=== PATIENT | male | born 1970 | race Caucasian/White ===

== ENCOUNTER → 2018-03-21 09:18 | Outpatient (CLI) | payer MEDICARE, SELFPAY ==
[2018-03-21 10:48] LABS: ALB/GLOB Ratio 0.9 RATIO (0.9-2.4); AST(SGOT) 11 U/L (15-37); Alanine Aminotransfer ALT/SGPT 13 U/L (16-61); Albumin, Serum 3.4 g/dL (3.2-5.0); Alkaline Phosphatase 45 U/L (45-117); Anion Gap 4 (5-15); BUN 37 mg/dL (7-18); BUN/Creat Ratio 17.9 RATIO (10-20); Calcium,Total 9.3 mg/dL (8.5-10.1); Chloride 108 mmol/L (98-107); Cholesterol 123 mg/dL (200); Creatinine, Serum 2.07 mg/dL (0.70-1.30); EST Glomerular Filtration Rate 37 mL/min (>60); Est Glom Filt Rate - Afr Amer 44 mL/min (>60); Globulin 3.9 g/dL (2.2-4.2); Glucose 147 mg/dL (74-106); High Density Lipoprotein 25 mg/dL; Potassium 4.8 mmol/L (3.5-5.1); Protein, Total 7.3 g/dL (6.4-8.2); Sodium Level 140 mmol/L (136-145); Triglycerides 185 mg/dL; Very Low Density Lipoprotein 37 mg/dL (5-40)
[2018-03-21 10:49] LABS: Microalbumin:Creatinine Ratio 493.9 mg/g CRE (<30 mg/g CRE)
[2018-03-21 11:10] LABS: Hemoglobin A1c 8.2 % (4.2-6.3)
== END ==
PROVIDERS: Family Provider Internal Medicine; PCP Internal Medicine; Visit Provider Internal Medicine
DX: E11.9 Type 2 diabetes mellitus without complications (principal); E78.5 Hyperlipidemia, unspecified; I25.2 Old myocardial infarction
CPT/HCPCS: 36415; 80053; 80061; 82043; 82570; 83036

== ENCOUNTER 2018-05-28 03:37 | Emergency (ER) | payer MEDICARE, SELFPAY ==
[2018-05-28 03:37] VITALS: BP 192/71; PULSE 63; RESP 16; TEMP 36.5; O2SAT 97; BMI 40.6
--- NOTE | 2018-05-28 03:54 | EKG12_ITS ---
Test Reason : CP Blood Pressure : / mmHG Vent. Rate : 061 BPM Atrial Rate : 061 BPM P-R Int : 150 ms QRS Dur : 096 ms QT Int : 430 ms P-R-T Axes : 003 072 068 degrees QTc Int : 432 ms Normal sinus rhythm Inferior infarct , age undetermined Anterolateral infarct , age undetermined Abnormal ECG Confirmed by HENOK MARINA ([id number]), supervising film or videotape editor ROGER NICHOLE ([id number]) on 05/31/2018 1:32:17 PM Referred By: DEE Confirmed By:HENOK MARINA
--- NOTE | 2018-05-28 04:06 | ED.RN ---
Faina, RN advised that pt requested to speak to RN in charge d/t pt complaining about care he was receiving. Upon entering room, pt asks you're the one in charge? Really?. Pt c/o about care he received, that he was upset that he had to walk into the ER and was not given a wheelchair in. Apologized to pt for not getting a wheelchair. Pt was complaining about IV attempts and rudeness of staff. Pt began to yell at this RN, I pay your salary, I pay your wages, I pay your house payment, you will take care of me and give me the respect I deserve. You aren't going to listen to me anyway because all you people stick together. The blood and plasma laboratory assistant, the nurses the firemen, and you aren't going to fucking listen to me and you aren't going to do anything. Advised pt that I was in the room to try to find a resolution for his dissatisfaction with his care, and to find out what happened, but I would not tolerate him swearing at me or any staff. Pt at this point was standing and had ripped monitors, BP cuff, and SPO2 sensor off. Pt yelled I have PTSD and you are about to set it off and you don't want to see it set off if you don't take back what you said about me being disrespectful. I'm calling all of your supervisors and I will make sure they all know that you denied me care. Advised pt that we were not denying care, that the DR had seen him and entered orders, and we were trying to provide care. Pt took this RN's and Faina's names and advised that he would make management aware. This RN had repeatedly tried to apologize to pt and attempt to find a resolution. Pt continuously kept becoming more and more threatening to staff. Pt left department on his own, ambulating without difficulty. Pt returned to ER to get his hat. Pt was not allowed to enter department. Security escorted this RN to main ER doors to return hat. Pt was not permitted to return to ER to get his hat d/t threatening nature of pt during visit.
--- NOTE | 2018-05-28 04:07 | NURSING ---
PT VERY LOUD AND SHORT WITH THIS NURSE I TRY TO GET THE HISTORY . I PUT THE IV IN RH . BLOOD RUNNING WELL. 2ND TUBE APPLIED. PT DEMANDED THIS NURSE TO TAKE IV OUT NOW. PT SAID,I WANT THAT IV OUT NOW. IT HURTS. INSTRUCTED PT THAT I WILL STICK HIM AGAIN BUT IF I CANT GET THEN WE WILL HAVE TO GIVE DILAUDID IM. PT WAS STUCK 2 TIMES BY ANAYELI. PT STATED , YOU ARE RUDE AND I WANT YOU OUT OF MY ROOM NOW. PT DEMANDED TO SPEECH TO MY CHARGE NURSE. ANAYELI NOTIFIED.
--- NOTE | 2018-05-28 04:12 | ED.DCSUM_ITS ---
- ER Visit Summary Date of Service: 05/28/18 Chief Complaint: [] Chest and abdominal burning History of Present Illness: The patient is a 48 M history of chest and abdominal burning for last 3 days gradual onset continuous burning sensation central chest and epigastric. He has a history of significant gastritis. He has been seen in the emergency department for this in the past. He is on Carafate and Protonix. He does have history of coronary artery disease and has 2 stents. He is on aspirin and Plavix. He took his aspirin today. Physical Examination: [] Vital signs reviewed General: Well-nourished well-developed Head: Normocephalic atraumatic Eyes: Pupils equal round and reactive to light extraocular movements intact ENT: TMs clear no hemotympanum no trauma Neck: Nontender full range of motion Cardiovascular: Regular rate rhythm no murmurs normal S1-S2 Respiratory: No distress clear to auscultation bilaterally chest nontender Abdomen: Soft nontender nondistended normal bowel sounds no masses Back: Nontender no CVA tenderness Extremities: Nontender active range of motion ?4 extremities no trauma Skin: Normal color no trauma Neuro alert oriented cranial nerves II through XII intact normal strength sensation reflexes Test Results: [] Emergency Department Course and Treatment: [] EKG obtained shows sinus rhythm at a rate of 61 without STEMI. Lab work was ordered as well as a chest x-ray. Dilaudid was ordered. The patient declined any Protonix or GI cocktail. Soon after these were ordered the patient eloped from the emergency department. We did not get lab work or chest x-ray. Most of the time he was here he was arguing arguing at the nursing staff and then decided to leave. Treatment Plan: [] Disposition: [] Impression: [] Chest pain Abdominal pain This note was generated with [employer] dictation software. It may contain incorrect words, spelling, and punctuation that were not noted in review of the chart prior to signing ED Disposition - Plan for ED Patient: Chief Complaint: Chest Pain Referrals: Mariaa Molina MD [Primary Care Provider] -
== END 2018-05-28 04:15 | disposition left against medical advice (07) ==
PROVIDERS: Emergency Provider Emergency Medicine; Family Provider Internal Medicine; PCP Internal Medicine
DX: R07.9 Chest pain, unspecified (principal); R10.13 Epigastric pain; K29.70 Gastritis, unspecified, without bleeding; I25.10 Atherosclerotic heart disease of native coronary artery without angina pectoris; I12.9 Hypertensive chronic kidney disease with stage 1 through stage 4 chronic kidney disease, or unspecified chronic kidney disease; N18.9 Chronic kidney disease, unspecified; E11.9 Type 2 diabetes mellitus without complications; E78.00 Pure hypercholesterolemia, unspecified; E66.9 Obesity, unspecified; Z68.41 Body mass index [BMI] 40.0-44.9, adult; Z95.5 Presence of coronary angioplasty implant and graft; Z79.82 Long term (current) use of aspirin; Z79.4 Long term (current) use of insulin; Z79.01 Long term (current) use of anticoagulants; Z79.899 Other long term (current) drug therapy; Z72.0 Tobacco use; Z53.21 Procedure and treatment not carried out due to patient leaving prior to being seen by health care provider
CPT/HCPCS: 93005; 99285; A4216

== ENCOUNTER 2018-05-28 08:44 | Emergency (ER) | payer MEDICARE, SELFPAY ==
[2018-05-28 08:45] VITALS: BP 172/81; PULSE 63; RESP 16; TEMP 36.3; O2SAT 98; BMI 42.2
--- NOTE | 2018-05-28 09:05 | EKG12_ITS ---
Test Reason : ABD Blood Pressure : / mmHG Vent. Rate : 059 BPM Atrial Rate : 059 BPM P-R Int : 162 ms QRS Dur : 096 ms QT Int : 452 ms P-R-T Axes : -01 034 041 degrees QTc Int : 447 ms Sinus bradycardia Inferior infarct , age undetermined Anterolateral infarct , age undetermined Abnormal ECG Confirmed by DANITZA COHEN, MARYAN ([id number]), editorial cartoonist ROGER NICHOLE ([id number]) on 05/31/2018 1:18:16 PM Referred By: GERMAINE Confirmed By:MARYAN BOSCH MD
--- NOTE | 2018-05-28 09:09 | ED.DCSUM_ITS ---
- ER Visit Summary Date of Service: 05/28/18 Chief Complaint: Abdominal pain History of Present Illness: The patient is a 48 M reports a history of severe gastritis and states his pain has been flaring up for the past 3 days. He does report some chills and some mild dysuria which is not normal. He complains of nausea. Past history is also significant for coronary disease with multiple MIs, diabetes, hypertension, high cholesterol, chronic kidney disease. He has had prior cholecystectomy and has 2 cardiac stents. Physical Examination: Vital signs significant for blood pressure 172/81, otherwise normal. Patient sitting upright in bed. He is in no acute distress. Heart is regular rate and rhythm. Lung sounds are clear. Abdomen is soft with moderate tenderness of the upper abdomen. No guarding or rebound. Hypoactive bowel sounds are noted throughout. Test Results: EKG is sinus bradycardia 59 bpm with no sign of acute ischemia. CBC reveals a white count 12.3 with normal differential. Chemistry studies reveal glucose of 188, BUN 27, creatinine 1.97. This appears consistent with his prior renal function. LFTs and lipase are normal. Urinalysis shows no sign of infection. Troponin is 0.019. Chest x-ray shows chronic changes with no evidence of free air. Emergency Department Course and Treatment: Patient is given Dilaudid, Zofran, Protonix, and IV fluids. Repeat evaluation he feels much improved. He has Carafate and Protonix at home. I did do an oars report he has had no prescriptions in the past 2 years. He will be given a prescription for Zofran along with a few Percocet. Treatment Plan: [] Disposition: Discharge Impression: Gastritis This note was generated with [employer] dictation software. It may contain incorrect words, spelling, and punctuation that were not noted in review of the chart prior to signing ED Disposition - Plan for ED Patient: Chief Complaint: Abd Pain Referrals: Mariaa Molina MD [Primary Care Provider] -
[2018-05-28] MEDS: HYDROmorphone 1 MG/ML Syringe IV (09:22)
[2018-05-28] MEDS: Ondansetron 4 MG/2 ML Vial IV (09:22)
[2018-05-28] MEDS: 0.9% Normal Saline 1,000 ML 1000 ML IV (09:22)
[2018-05-28 09:32] LABS: Absolute Lymphocyte Count 4.13 X10^3/ul (0.83-4.51); Absolute Neutrophil Count 7.1 X10^3/uL (2.0-7.7); Basophil# 0.01 X10^3/uL; Basophil% 0.1 % (0-1); Eosinophil# 0.02 X10^3/uL; Eosinophils% 0.2 % (0-5); Hematocrit 45.1 % (40-54); Hemoglobin 15.4 g/dl (13.0-16.5); Lymphocyte # 4.13 X10^3/ul (4.0); Lymphocyte % 33.7 % (19-41); Mean Corp Hgb Conc 34.1 g/gl (32-36); Mean Corpuscular Hgb 28.6 pg (27.0-32.0); Mean Corpuscular Volume 83.8 fL (80-94); Mean Platelet Vol. 10.3 fl (6.2-12.0); Monocyte# 1.03 X10^3/uL; Monocyte% 8.4 % (0-10); Neutrophil # 7.06 X10^3/uL (2.7-7.7); Neutrophil % 57.4 % (47-70); Platelet Count 248 K/mm3 (150-450); RBC Distribution Width CV 15.7 % (11.6-14.6); RBC Distribution Width SD 47.9 fl (35.1-43.9); Red Blood Count 5.38 M/mm3 (4.6-6.2); White Blood Count 12.3 K/mm3 (4.4-11.0)
[2018-05-28 09:34] LABS: POSITIVE COUNT NO; POSITIVE DIFFERENTIAL NO; POSITIVE MORPHOLOGY NO
[2018-05-28 09:46] LABS: AST(SGOT) 16 U/L (15-37); Alanine Aminotransfer ALT/SGPT 19 U/L (16-61); Albumin, Serum 3.5 g/dL (3.2-5.0); Alkaline Phosphatase 46 U/L (45-117); Anion Gap 8 (5-15); BUN 27 mg/dL (7-18); BUN/Creat Ratio 13.7 RATIO (10-20); Bilirubin, Direct 0.25 mg/dL (0.00-0.30); Calcium,Total 9.9 mg/dL (8.5-10.1); Chloride 102 mmol/L (98-107); Creatinine, Serum 1.97 mg/dL (0.70-1.30); EST Glomerular Filtration Rate 39 mL/min (>60); Est Glom Filt Rate - Afr Amer 47 mL/min (>60); Estimated Creatinine Clearance 51.26 ml/min; Globulin 4.3 g/dL (2.2-4.2); Glucose 188 mg/dL (74-106); Lipase 155 U/L (73-393); Potassium 3.9 mmol/L (3.5-5.1); Protein, Total 7.8 g/dL (6.4-8.2); Sodium Level 134 mmol/L (136-145)
[2018-05-28 09:51] LABS: Mucous, Urine 0 SEEN /hpf (<or=2+); Red Blood Cells-Urine 0 SEEN /hpf (0-5); Squamous Epithelial Cells - UA 0 SEEN /hpf (0-5)
--- NOTE | 2018-05-28 10:06 | RAD_ITS ---
STUDY: X-RAY CHEST REASON FOR EXAM: Male, 48 years old. Shortness of breath TECHNIQUE: Single AP portable view of the chest. COMPARISON: 08/12/2017. FINDINGS: The lungs are clear and expanded. There is no demonstrated pleural abnormality. Normal size heart. Normal mediastinum and jesica. Normal visualized pulmonary arteries. Normal visualized aortic arch and descending thoracic aorta. Normal visualized thoracic spine. Normal visualized ribs, clavicles, and shoulders. There is no demonstrated abnormality of the visualized soft tissue structures of the upper abdomen. RAD/Chest 1 View (Portable) IMPRESSION: No acute cardiopulmonary disease. Electronically Signed: Du Da Silva DO at 10:38 EDT , Service support ,
[2018-05-28 10:09] LABS: Color, Urine Yellow (Yellow); Glucose, Dipstick 50 mg/dl (Normal); Ketone-Dipstick 5 mg/dl (Negative); Leukocyte Esterase-Dipstick 25 /ul (Negative); Nitrite-Dipstick Negative (Negative); Occult Blood-Urine 25 /ul (Negative); Protein-Dipstick 500 mg/dl (Negative); Specific Gravity, Urine 1.015 (1.002-1.030); Urine Bilirubin Dipstick Negative (Negative); Urine Clarity Sl. Cloudy (Clear); Urine Urobilinogen 4 mg/dl (Normal)
[2018-05-28 10:17] LABS: Bacteria RARE /hpf (None Seen); White Blood Cells 0-5 SEEN /hpf (0-5)
[2018-05-28] MEDS: HYDROmorphone 0.5 MG/0.5 ML SYRINGE IV (10:22)
--- NOTE | 2018-05-28 10:56 | ED.DEP ---
ED Disposition - Plan for ED Patient: Disposition: Home or Assisted Living Chief Complaint: Abd Pain Instructions: ED Gastritis Prescriptions: Oxycodone HCl/Acetaminophen [Percocet 5/325] 1 tablet PO Q6H PRN PRN 3 Days #12 tablet PRN Reason: Pain Ondansetron [Zofran Odt] 4 mg PO Q8H PRN PRN #10 tab PRN Reason: Nausea Referrals: Mariaa Molina MD [Primary Care Provider] - 1 Week
== END 2018-05-28 11:15 | disposition home or self-care (01) ==
PROVIDERS: Emergency Provider Emergency Medicine; Family Provider Internal Medicine; PCP Internal Medicine
DX: K29.70 Gastritis, unspecified, without bleeding (principal); K21.9 Gastro-esophageal reflux disease without esophagitis; I25.10 Atherosclerotic heart disease of native coronary artery without angina pectoris; I25.2 Old myocardial infarction; I12.9 Hypertensive chronic kidney disease with stage 1 through stage 4 chronic kidney disease, or unspecified chronic kidney disease; N18.9 Chronic kidney disease, unspecified; E78.00 Pure hypercholesterolemia, unspecified; J44.9 Chronic obstructive pulmonary disease, unspecified; F32.9 Major depressive disorder, single episode, unspecified; E66.9 Obesity, unspecified; Z68.41 Body mass index [BMI] 40.0-44.9, adult; Z90.49 Acquired absence of other specified parts of digestive tract; Z95.5 Presence of coronary angioplasty implant and graft; Z79.82 Long term (current) use of aspirin; Z79.01 Long term (current) use of anticoagulants; Z79.4 Long term (current) use of insulin; Z79.899 Other long term (current) drug therapy; Z72.0 Tobacco use
CPT/HCPCS: 71045; 80048; 80076; 81001; 83690; 84484; 85025; 93005; 96365; 96375; 96376; 99284; 99285; J7030; A4216; J2405

== ENCOUNTER 2018-07-06 12:26 | Day surgery (SDC) | payer MEDICARE, SELFPAY ==
--- NOTE | 2018-07-06 | GASB_PTH ---
PATIENT: DIVINA LOVE LOC: EN U#:[id number] AGE/SX: 48/M ROOM: RE07/06/[address]: Dr. Dmitry Rangel MD : 1970 BED: DIS: 07/06/2018 SPEC #: [id number] RECD: 07/07/18 09:14 STATUS: XAVIER MICHELE #: [id number] ROSSY: 07/06/18 00:[address]: Dmitry Rangel DEPT: SURGICAL PATHOLOGY RECD BY: Ronald Gregory ENTERED: 07/07/18 09:14 SP TYPE: Gastric Bx OTHR DR: Dr. Mariaa Molina MD Tissues: Gastric mucous membrane Procedures: Surgery Specimen Level IV HEADER OPERATION: EGD ([facility]) PRE-OP DIAGNOSIS: Epigastric abdominal pain, nausea and vomiting TISSUE SUBMITTED: Antrum biopsy for H. pylori and pathology MICROSCOPIC DIAGNOSIS Gastric antrum, biopsy: Mild chronic inflammation. AM:artur 07/08/18 COMMENT The results of immunohistochemistry for Helicobacter pylori will be reported separately ([id number]). MICROSCOPIC DESCRIPTION Slides are reviewed. GROSS DESCRIPTION Received in fixative is one container labeled with the patient's name and designated antral biopsy. The specimen consists of one irregular fragment of light craig soft tissue that measures 0.5 x 0.5 x 0.1 cm. The specimen is totally submitted in one cassette. / AM:artur 07/07/18 TC:3 CPT: 56326
[2018-07-06 12:56] VITALS: BP 125/73; PULSE 56; RESP 16; TEMP 36.5; O2SAT 93; BMI 40.4
--- NOTE | 2018-07-06 13:40 | PCM.OPRPT ---
Problem List (1) Epigastric pain Status: Acute (2) Nausea with vomiting, unspecified Status: Acute Qualifiers: Vomiting type: unspecified Vomiting Intractability: unspecified Qualified Code(s): R11.2 - Nausea with vomiting, unspecified Report of Operation Date of Procedure: 07/06/18 Pre-Operative Diagnosis: Epigastric abdominal pain. Nausea and vomiting Post-Operative Diagnosis: Same Surgery/Procedure Performed:: Esophagogastroduodenoscopy with biopsy Type of Anesthesia:: MAC Description of Procedure: Patient was brought into the endoscopy suite. Back of his throat was sprayed with Cetacaine spray. Bite-block was placed. He was placed on the left lateral decubitus position. He was given graded anesthesia. The scope was inserted into the back of the oropharynx and directed down through the esophagus into the stomach and into the duodenum without difficulty. Operative findings: 1. Duodenum: Normal appearance no mass lesions no ulcerations normal ileocecal valve. 2. Stomach: Minimal gastritis was identified H. pylori was obtained in the antrum and sent to pathology for permanent sectioning. No ulcerations no mass lesions retroflexion did not show any signs of obvious hiatal hernia. 3. Esophagus: Normal appearance no mass lesions no esophagitis Z line was at 44 cm and appeared entirely normal. The pain the patient is experiencing is clearly out of proportion to what I have found in his upper scope. He will need to have an esophageal manometry study performed. Can follow-up with me after this is completed. - Admit VTE Documentation VTE Present on Admission: No VTE Mechan Device Prophylaxis: None VTE Pharm Prophylaxis ordered?: No Reason prophylaxis not ordered:: Treatment Not Indicated
[2018-07-06 13:41] LABS: Bedside Glucose 159 mg/dL (70-110)
[2018-07-06 13:45] VITALS: BP 125/73; BP 130/55; PULSE 59; RESP 16; TEMP 36.3; O2SAT 93
[2018-07-06 13:50] VITALS: BP 125/73; BP 130/63; PULSE 57; RESP 16; O2SAT 94
[2018-07-06 13:55] VITALS: BP 125/73; BP 138/69; PULSE 56; RESP 16; O2SAT 93
--- NOTE | 2018-07-06 14:00 | IMM_PTH ---
PATIENT: DIVINA LOVE LOC: EN U#:[id number] AGE/SX: 48/M ROOM: RE07/06/[address]: Dr. Dmitry Rangel MD : 1970 BED: DIS: 07/06/2018 SPEC #: [id number] RECD: 07/07/18 10:07 STATUS: XAVIER REEdelmira #: [id number] ROSSY: 07/06/18 14:[address]: Dmitry Rangel DEPT: IMMUNOHISTOCHEMISTRY RECD BY: Toma Hatch ENTERED: 07/07/18 10:08 SP TYPE: IMMUNO OTHR DR: Dr. Mariaa Molina MD Tissues: Stomach, NOS Procedures: H Pylori (initial) PHYSICIAN & INSTITUTION [place] [id number] SPECIMEN INFORMATION: Tissue Source: Antrum biopsy Clinical Info: Epigastric pain, nausea and vomiting Specimen Number: [id number] CPT code: 08165 METHODOLOGY: Deparaffinized sections of prefer/formalin-fixed tissue or PAP/DQ stained slides are incubated with monoclonal/polyclonal antibodies/oligonucleotide probes. Localization is made via biotin free immunoperoxidase method. Appropriate controls are performed and reacted as expected. Results on target cell population are indicated in the following table: RESULTS: ANTIBODY / CLONE RESULT H Pylori (polyclonal) negative These tests were developed and their performance characteristics determined by [facility]. They may not have been cleared or approved by the U.S. Food and Drug Administration. The FDA has determined that such clearance or approval is not necessary. INTERPRETATION: Antrum, biopsy: Negative for Helicobacter pylori organisms. AM:artur 07/08/18
[2018-07-06 14:05] VITALS: BP 120/58; BP 125/73; PULSE 57; RESP 16; TEMP 36.4; O2SAT 94
[2018-07-06 14:29] VITALS: BP 125/73
== END 2018-07-06 14:35 | disposition home or self-care (01) ==
LOC: EN 12:27 → AC 12:29
PROVIDERS: Family Provider Internal Medicine; PCP Internal Medicine; Visit Provider Surgery
PROC: 0DJ08ZZ Inspection of Upper Intestinal Tract, Via Natural or Artificial Opening Endoscopic (ICD-10-PCS; CPT 43235; principal; 2018-07-06 13:55)
DX: K29.50 Unspecified chronic gastritis without bleeding (principal); K21.9 Gastro-esophageal reflux disease without esophagitis; R10.13 Epigastric pain; R11.2 Nausea with vomiting, unspecified; I12.9 Hypertensive chronic kidney disease with stage 1 through stage 4 chronic kidney disease, or unspecified chronic kidney disease; N18.2 Chronic kidney disease, stage 2 (mild); E11.22 Type 2 diabetes mellitus with diabetic chronic kidney disease; E11.610 Type 2 diabetes mellitus with diabetic neuropathic arthropathy; I25.10 Atherosclerotic heart disease of native coronary artery without angina pectoris; I25.2 Old myocardial infarction; E78.00 Pure hypercholesterolemia, unspecified; F32.9 Major depressive disorder, single episode, unspecified; F41.9 Anxiety disorder, unspecified; F43.10 Post-traumatic stress disorder, unspecified; G25.81 Restless legs syndrome; E78.5 Hyperlipidemia, unspecified; E66.01 Morbid (severe) obesity due to excess calories; Z68.41 Body mass index [BMI] 40.0-44.9, adult; G47.33 Obstructive sleep apnea (adult) (pediatric); E55.9 Vitamin D deficiency, unspecified; Z95.2 Presence of prosthetic heart valve; F17.290 Nicotine dependence, other tobacco product, uncomplicated; F12.90 Cannabis use, unspecified, uncomplicated; Z79.4 Long term (current) use of insulin; Z79.82 Long term (current) use of aspirin; Z79.01 Long term (current) use of anticoagulants; Z79.899 Other long term (current) drug therapy
CPT/HCPCS: 43239; 82962; 88305; 88342; J7120

== ENCOUNTER → 2018-08-23 13:38 | Outpatient (CLI) | payer MEDICARE, SELFPAY ==
[2018-08-23 14:42] LABS: Anion Gap 5 (5-15); BUN 23 mg/dL (7-18); BUN/Creat Ratio 12.8 RATIO (10-20); Calcium,Total 9.3 mg/dL (8.5-10.1); Chloride 106 mmol/L (98-107); Creatinine, Serum 1.79 mg/dL (0.70-1.30); EST Glomerular Filtration Rate 43 mL/min (>60); Est Glom Filt Rate - Afr Amer 52 mL/min (>60); Glucose 117 mg/dL (74-106); Potassium 4.3 mmol/L (3.5-5.1); Sodium Level 141 mmol/L (136-145)
[2018-08-23 14:53] LABS: Hemoglobin A1c 7.6 % (4.2-6.3)
[2018-08-23 15:32] LABS: Microalbumin:Creatinine Ratio 903.2 mg/g CRE (<30 mg/g CRE)
== END ==
PROVIDERS: Family Provider Internal Medicine; PCP Internal Medicine; Referring Provider Internal Medicine; Visit Provider Internal Medicine
DX: E11.610 Type 2 diabetes mellitus with diabetic neuropathic arthropathy (principal); E11.22 Type 2 diabetes mellitus with diabetic chronic kidney disease; N18.3 Chronic kidney disease, stage 3 (moderate)
CPT/HCPCS: 36415; 80048; 82043; 82570; 83036

== ENCOUNTER 2018-09-15 07:47 | Day surgery (SDC) | payer MEDICARE, SELFPAY ==
[2018-09-15 08:48] VITALS: BP 174/73; PULSE 56; RESP 16; TEMP 36.3; O2SAT 95
== END 2018-09-15 08:41 | disposition home or self-care (01) ==
PROVIDERS: Family Provider Internal Medicine; PCP Internal Medicine; Visit Provider Surgery
PROC: F00ZJWZ Instrumental Swallowing and Oral Function Assessment using Swallowing Equipment (ICD-10-PCS; CPT 43235; principal; 2018-09-15 07:55)
DX: R13.10 Dysphagia, unspecified (principal)
CPT/HCPCS: 91010

== ENCOUNTER → 2018-11-29 10:57 | Outpatient (CLI) | payer MEDICARE, SELFPAY ==
[2018-11-22 11:06] VITALS: BMI 41.6
[2018-11-29 11:55] LABS: Absolute Lymphocyte Count 2.74 X10^3/ul (0.83-4.51); Absolute Neutrophil Count 5.3 X10^3/uL (2.0-7.7); Basophil# 0.03 X10^3/uL; Basophil% 0.3 % (0-1); Eosinophil# 0.18 X10^3/uL; Hematocrit 39.6 % (40-54); Lymphocyte # 2.74 X10^3/ul (4.0); Lymphocyte % 30.2 % (19-41); Mean Corp Hgb Conc 32.8 g/gl (32-36); Mean Corpuscular Hgb 27.4 pg (27.0-32.0); Mean Corpuscular Volume 83.5 fL (80-94); Mean Platelet Vol. 10.9 fl (6.2-12.0); Monocyte# 0.75 X10^3/uL; Monocyte% 8.3 % (0-10); Neutrophil # 5.33 X10^3/uL (2.7-7.7); Neutrophil % 58.9 % (47-70); Platelet Count 208 K/mm3 (150-450); RBC Distribution Width CV 14.7 % (11.6-14.6); RBC Distribution Width SD 44.1 fl (35.1-43.9); Red Blood Count 4.74 M/mm3 (4.6-6.2); White Blood Count 9.1 K/mm3 (4.4-11.0)
[2018-11-29 11:58] LABS: POSITIVE COUNT NO; POSITIVE DIFFERENTIAL NO; POSITIVE MORPHOLOGY NO
[2018-11-29 12:32] LABS: ALB/GLOB Ratio 0.9 RATIO (0.9-2.4); AST(SGOT) 22 U/L (15-37); Alanine Aminotransfer ALT/SGPT 23 U/L (16-61); Albumin, Serum 3.2 g/dL (3.2-5.0); Alkaline Phosphatase 43 U/L (45-117); Anion Gap 6 (5-15); BUN 55 mg/dL (7-18); BUN/Creat Ratio 24.7 RATIO (10-20); Calcium,Total 9.5 mg/dL (8.5-10.1); Chloride 102 mmol/L (98-107); Cholesterol 131 mg/dL (200); Creatinine, Serum 2.23 mg/dL (0.70-1.30); EST Glomerular Filtration Rate 33 mL/min (>60); Est Glom Filt Rate - Afr Amer 40 mL/min (>60); Globulin 3.7 g/dL (2.2-4.2); Glucose 286 mg/dL (74-106); High Density Lipoprotein 28 mg/dL; Potassium 4.7 mmol/L (3.5-5.1); Protein, Total 6.9 g/dL (6.4-8.2); Sodium Level 138 mmol/L (136-145); Triglycerides 271 mg/dL; Very Low Density Lipoprotein 54 mg/dL (5-40)
[2018-11-29 12:40] LABS: Microalbumin:Creatinine Ratio 919.8 mg/g CRE (<30 mg/g CRE)
--- OUTSIDE RECORDS SUMMARY | 2019-01-31 14:52 | XMS RPT_ITS ---
:1970 Author Organization OHIP Support Name Relationship Address Phone D Unavailable Unavailable Unavailable IAVN ERIBERTO Unavailable Unavailable + VITA JEREMIAS Unavailable [address] + [address] [place] [address] D Unavailable Unavailable Unavailable IVAN, ERIBERTO Unavailable . + ., [place] . VITA JEREMIAS Unavailable [address] [place] [address] D Unavailable Unavailable Unavailable IVAN, ERIBERTO Unavailable . + ., [place] . VITA JEREMIAS Unavailable [address] [place] [address] D Unavailable Unavailable Unavailable VITA JEREMIAS Unavailable [address] + [address] [place] [address] D Unavailable Unavailable Unavailable IVAN, ERIBERTO Unavailable Unavailable + VITA JEREMIAS Unavailable [address] [place] [address] D Unavailable Unavailable Unavailable IVAN, ERIBERTO Unavailable Unavailable + VITA JEREMIAS Unavailable [address] + [address] [place] [address] D Unavailable Unavailable Unavailable IVAN, ERIBERTO Unavailable Unavailable + VITA JEREMIAS Unavailable [address] + [address] [place] [address] D Unavailable Unavailable Unavailable IVAN, ERIBERTO Unavailable . + ., [place] . VITA, JEREMIAS Unavailable [address] [place] [address] D Unavailable Unavailable Unavailable TEDDY LOVEA Unavailable Unavailable + VITA, JEREMIAS Unavailable [address] [place] [address] D Unavailable Unavailable Unavailable CHHAYA LoveYLA Unavailable Unavailable + [place] [address] VITA, JEREMIAS Unavailable [address] + [address] [place] [address] D Unavailable Unavailable Unavailable CHHAYA LoveYLA Unavailable Unavailable + [place] [address] VITA, JEREMIAS Unavailable [address] + [address] [place] [address] D Unavailable Unavailable Unavailable CHHAYA LoveYLA Unavailable Unavailable + [place] [address] VITA, JEREMIAS Unavailable [address] + [address] [place] [address] D Unavailable Unavailable Unavailable VITA, JEREMIAS Unavailable [address] [place] [address] D Unavailable Unavailable Unavailable VITA, JEREMIAS Unavailable [address] + [address] [place] [address] D Unavailable Unavailable Unavailable VITA, JEREMIAS Unavailable [address] + [address] [place] [address] D Unavailable Unavailable Unavailable IVTA, JEREMIAS Unavailable [address] + [address] [place] [address] D Unavailable Unavailable Unavailable VITA, JEREMIAS Unavailable [address] + [address] [place] [address] D Unavailable Unavailable Unavailable VITA, JEREMIAS Unavailable [address] [place] [address] D Unavailable Unavailable Unavailable VITA, JEREMIAS Unavailable [address] + [address] [place] [address] D Unavailable Unavailable Unavailable VITA, JEREMIAS Unavailable [address] + [address] [place] [address] D Unavailable Unavailable Unavailable VITA, JEREMIAS Unavailable [address] + [address] [place] [address] D Unavailable Unavailable Unavailable VITA, JEREMIAS Unavailable [address] [place] [address] Care Team Providers Name Role Phone KAILEY CUMMINGS Attending Unavailable Dmitry Rangel Attending Unavailable Oleghe, Efewongbe Referring Unavailable Oleghe, Efewongbe Attending Unavailable Oleghe, Efewongbe Referring Unavailable Oleghe, Efewongbe Primary Care Unavailable Oleghe, Efewongbe Primary Care Unavailable Harley Bustillo Attending Unavailable Arnie Coleman Attending Unavailable Ken Vega Attending Unavailable CalabrKen celestin Referring Unavailable Oleghe, Efewongbe Attending Unavailable Oleghe, Efewongbe Referring Unavailable Oleghe, Efewongbe Attending Unavailable Oleghe, Efewongbe Referring Unavailable Oleghe, Efewongbe Primary Care Unavailable Oleghe, Efewongbe Attending Unavailable Kailey Cummings Referring Unavailable Kailey Cummings Primary Care Unavailable Dmitry Rangel Attending Unavailable Oleghe, Efewongbe Referring Unavailable Oleghe, Efewongbe Primary Care Unavailable Oleghe, Efewongbe Primary Care Unavailable Chacha Silva Attending Unavailable Oleghe, Efewongbe Attending Unavailable Oleghe, Efewongbe Referring Unavailable Oleghe, Efewongbe Primary Care Unavailable Oleghe, Efewongbe Attending Unavailable Oleghe, Efewongbe Referring Unavailable Gene Tovar IDENTITY ACCESS MANAGEMENT ARCHITECT-C Attending Unavailable Oleghe, Efewongbe Referring Unavailable [place]mitry Attending Unavailable Juan Carlos, Dmitry Referring Unavailable Oleghe, Efewongbe Primary Care Unavailable Dmitry Rangel Consulting Unavailable Dmitry Rangel Attending Unavailable Juan Carlos, Dmitry Referring Unavailable Oleghe, Efewongbe Primary Care Unavailable Rufina Humphreys Attending Unavailable Oleghe, Efewongbe Attending Unavailable Oleghe, Efewongbe Referring Unavailable Oleghe, Efewongbe Primary Care Unavailable Oleghe, Efewongbe Attending Unavailable Oleghe, Efewongbe Referring Unavailable Oleghe, Efewongbe Primary Care Unavailable Ken Vega Attending Unavailable Ken Vega Referring Unavailable Oleghe, Efewongbe Primary Care Unavailable Oleghe, Efewongbe Attending Unavailable Oleghe, Efewongbe Referring Unavailable Oleghe, Efewongbe Primary Care Unavailable Srinivasa, Rj Attending Unavailable Oleghe, Efewongbe Referring Unavailable Oleghe, Efewongbe Primary Care Unavailable Marleny Swenson Attending Unavailable PROBLEMS PROBLEMS DATE TYPE CONDITION / CODE ATTENDING STATUS SOURCE 11/29/2018 Unknown E11.610 - Type 2 Oleghe, Active [place] diabetes mellitus [facility] with diabetic Hospital neuropathic Repository arthropathy / E11.610(ICD-10) 11/29/2018 Unknown E78.5 - Oleghe, Active [place] Hyperlipidemia, [facility] unspecified / Hospital E78.5(ICD-10) Repository 11/29/2018 Unknown N18.3 - Chronic Oleghe, Active [place] kidney disease, stage [facility] 3 (moderate) / Hospital N18.3(ICD-10) Repository 09/27/2018 Unknown R13.10 - Dysphagia, [place], Active [place] unspecified / [facility] R13.10(ICD-10) Hospital Repository 08/22/2018 Unknown E66.01 - Morbid Oleghe, Active [place] (severe) obesity due [facility] to excess calories / Hospital E66.01(ICD-10) Repository 06/06/2018 Unknown K29.70 - Gastritis, Oleghe, Active [place] unspecified, without [facility] bleeding / Hospital K29.70(ICD-10) Repository 05/28/2018 Unknown K21.9 - Chcaha Silva Active [place] [facility]ophageal [facility] reflux disease Hospital without esophagitis / Repository K21.9(ICD-10) 03/23/2018 Unknown I25.10 - [place]rin[place], [place] Active [place] Atherosclerotic heart Community disease of [facility] coronary artery Repository without angina pectoris / I25.10(ICD-10) 03/23/2018 Unknown I51.9 - Heart Sriniv[place], [place] Active [place] disease, unspecified Community / I51.9(ICD-10) Hospital Repository 03/23/2018 Unknown I10 - Essential Srinivasa, Rj Active [place] (primary) [facility] hypertension / Hospital I10(ICD-10) Repository 03/21/2018 Unknown I25.2 - [place], Active [place] myocardial infarction [facility] / I25.2(ICD-10) Hospital Repository 03/07/2018 Unknown E11.9 - Type 2 Olecindy, Active [place] diabetes mellitus [facility] without complications Hospital / E11.9(ICD-10) Repository 03/07/2018 Unknown F43.10 - Olesirishae, Active [place] Post-traumatic stress [facility] disorder, unspecified Hospital / F43.10(ICD-10) Repository PROCEDURES PROCEDURES No Procedure Records FoundRESULTS RESULTS CBC W/DIFF, AUTOMATED Collected: 11/29/2018 Status: F Source: [place] 11:05 AM [facility]OSP[facility] REPOSITORY TYPE CODE TESTS RESULT OUT OF RANGE REFERENCE UNITS LAB L100.1000 4.4-11.0 K/mm3 Normal WBC 9.1 LAB L100.1200 4.6-6.2 M/mm3 Normal RBC 4.74 LAB L100.1300 13.0-16.5 g/dl Normal HGB 13.0 LAB L100.1400 40-54 % Low HCT 39.6 LAB L100.1500 80-94 fL Normal MCV 83.5 LAB L100.1600 27.0-32.0 pg Normal MCH 27.4 LAB L100.1700 32-36 g/gl Normal MCHC 32.8 LAB L100.1810 11.6-14.6 % High RDW CV 14.7 LAB L100.1820 35.1-43.9 fl High RDW SD 44.1 LAB L100.1900 150-450 K/mm3 Normal PLT 208 LAB L100.2000 6.2-12.0 fl Normal MPV 10.9 LAB L100.2100 47-70 % Normal NEUT% 58.9 LAB L100.2200 19-41 % Normal LY% 30.2 LAB L100.2300 0-10 % Normal MONO% 8.3 LAB L100.2400 0-5 % Normal EO% 2.0 LAB L100.2500 0-1 % Normal BASO% 0.3 LAB L100.2550 0.0-0.9 % Normal IM GRAN % 0.300 Result Comment: IG% - Immature Granulocytes (promyelocytes, myelocytes and metamyelocytes) > 1% indicates that a LEFT SHIFT is Present. LAB L100.2620 2.0-7.7 X10 3/uL Normal Absolute Neut 5.3 LAB L100.2720 0.83-4.51 X10 3/ul Normal Absolute Lymph 2.74 Performed By: #### L100.0100 #### [facility] [place], [address] COMPREHENSIVE METABOLIC Collected: 11/29/2018 Status: F Source: [place] [facility] 11:05 AM [facility] Order Comment: Comments: Fasting Comments: Fasting TYPE CODE TESTS RESULT OUT OF RANGE REFERENCE UNITS LAB L501.0100 74-106 mg/dL High GLU 286 Result Comment: Glucose result greater than or equal to 200 mg/dL suggests DIABETES MELLITUS per A.D.A. criteria. Please note revised GLUCOSE reference range effective 2017. LAB L501.1000 7-18 mg/dL High BUN 55 LAB L501.1100 0.70-1.30 mg/dL High CREAT,SERUM 2.23 Result Comment: The validity of the calculated GFR AND GFRAA in patients over 70 years has not been determined. Clinical correlation is essential. LAB L501.1110 >60 mL/min Low EST GFR 33 Result Comment: Non- GFR Calc LAB L501.1115 >60 mL/min Low EST GFR - AA 40 Result Comment: GFR Calc LAB L501.1300 10-20 RATIO High BUN/CRE 24.7 LAB L501.1500 6.4-8.2 g/dL T Normal PROT 6.9 LAB L501.1800 3.2-5.0 g/dL Normal ALB 3.2 LAB L501.1950 2.2-4.2 g/dL Normal GLOB 3.7 LAB L501.2000 0.9-2.4 RATIO Normal A/G 0.9 LAB L501.2200 8.5-10.1 mg/dL CA Normal 9.5 LAB L501.4100 15-37 U/L Normal AST 22 Result Comment: Moderate Hemolysis, Result may be falsely increased. LAB L501.4305 45-117 U/L Low ALK P 43 LAB L501.4405 16-61 U/L Normal ALT 23 LAB L501.4600 0.20-1.00 mg/dL Normal T BILI 0.50 LAB L501.5300 136-145 mmol/L Normal NA 138 LAB L501.5600 3.5-5.1 mmol/L Normal K 4.7 Result Comment: Moderate Hemolysis, Result may be falsely increased. LAB L501.5900 98-107 mmol/L Normal CL 102 LAB L501.6100 21.0-32.0 mmol/L Normal CO2 30.0 LAB L501.6200 5-15 Normal 6 GAP Performed By: #### L500.4050, L500.4100 #### [facility] [address] [place], [place], [id number] LIPID PROFILE Collected: 11/29/2018 Status: F Source: [place] 11:05 AM [facility] Order Comment: Comments: Fasting Comments: Fasting TYPE CODE TESTS RESULT OUT OF RANGE REFERENCE UNITS LAB L501.4900 200 mg/dL Normal CHOL 131 Result Comment: <200 mg/dL Desirable 200-240 mg/dL Borderline >240 mg/dL High Risk LAB L501.5000 mg/dL High TRIG 271 Result Comment: The drugs N-Acetylcysteine and Metamizole may falsely depress this assay. Serum Triglycerides Reference Interval Normal <150 mg/dL Borderline high 150 - 199 mg/dL High 200 - 499 mg/dL Very High > or = 500 mg/dL LAB L501.6400 mg/dL Low HDL 28 Result Comment: The drugs N-Acetylcysteine and Metamizole may falsely depress this assay. Reference Range HDL <40 mg/dL Low HDL Cholesterol HDL >or= 60 mg/dL High HDL Cholesterol LAB L501.6500 0-130 mg/dL Normal LDL 49 LAB L501.6600 5-40 mg/dL High VLDL 54 Performed By: #### L500.4050, L500.4100 #### [facility] [address] [place], [place], [address] MICROALB:CREAT Collected: 11/29/2018 Status: F Source: [place] RATIO,RANDOM UR 11:05 AM [facility] TYPE CODE TESTS RESULT OUT OF RANGE REFERENCE UNITS LAB L501.1200 NO RANGE EST. mg/dL Normal UR CREAT 58.60 LAB L502.0500 NO RANGE EST. mg/L Normal 539.0 MICROALBUMIN ,UR LAB L502.0600 <30 mg/g CRE mg/g CRE High 919.8 MALB:CREAT Performed By: #### L502.0250 #### [facility] [address] [place], [address] INTERNAL MEDICINE Observed: 11/22/2018 Status: F Source: [place] OFFICE VISIT 4:48 PM [facility] [address] [place] [address] [place] [address] OFFICE VISIT Date of Service: 11/22/18 MR#: [id number] Acct: [id number] Name: DIVINA LOVE Rep #: [id number] : 1970 Provider: Mariaa Molina MD Age/Sex: 48/M Location: [facility] Status: Signed Intake Vital Signs11/22/18 Body Mass Index (BMI) 41.6 11/22/18 Height 6 ft 1 in 11/22/18 Weight: 320 lb 11/22/18 Body Mass Index (BMI) 42.2 11/22/18 Blood Pressure 111/58 L Intake Visit Reasons: 3 MO FU Chief Complaint: 3 Mo FU - Diabetes Is patient in pain?: No Allergies No Known Allergies Allergy (Verified 11/22/18 11:03) Medications pantoprazole 40 mg tablet,delayed release 40 mg PO BID #90 tab 06/06/18 [Rx Confirmed 11/22/18] duloxetine 60 mg capsule,delayed release 60 mg PO BID #180 cap 06/21/18 [Rx Confirmed 11/22/18] aspirin 81 mg tablet,delayed release 81 mg PO DAILY 08/22/18 [History Confirmed 11/22/18] lisinopril 5 mg tablet 5 mg PO QDAY #30 tab 08/23/18 [Rx Confirmed 11/22/18] fenofibrate nanocrystallized 145 mg tablet 145 mg PO DAILY #90 tab 08/25/18 [Rx Confirmed 11/22/18] insulin detemir (U- 100) 100 unit/mL subcutaneous solution 58 unit SC BID #10 ml 08/25/18 [Rx Confirmed 11/22/18] sucralfate 1 gram tablet 1 g PO 4X/DAY #120 tab 09/21/18 [Rx Confirmed 11/22/18] Cannibus PO 11/22/18 [History Confirmed 11/22/18] carvedilol 25 mg tablet 25 mg PO BID #180 tab 11/22/18 [Rx] cholecalciferol (vitamin D3) 50,000 unit capsule 50,000 unit PO QWEEK #12 cap 11/22/18 [Rx] clopidogrel 75 mg tablet 75 mg PO DAILY #90 tab 11/22/18 [Rx] furosemide 20 mg tablet 20 mg PO DAILY #90 tab 11/22/18 [Rx] lamotrigine 100 mg tablet 100 mg PO QDAY #90 tab 11/22/18 [Rx] rosuvastatin 40 mg tablet 40 mg PO DAILY #90 tab 11/22/18 [Rx] PFSH Medical History Epigastric pain (Acute) Nausea with vomiting, unspecified (Acute) Shortness of breath (Chronic) CKD (chronic kidney disease), stage III (Chronic) Gastritis (Chronic) Nicotine dependence (Chronic) Type 2 diabetes mellitus with diabetic neuropathic arthropathy (Chronic) Atherosclerosis of coronary artery of [place] heart without angina pectoris (Chronic) Old myocardial infarction (Chronic) Hypertension (Chronic) CKD (chronic kidney disease) stage 2, GFR 60-89 ml/min (Chronic) Hyperlipidemia (Chronic) Morbidly obese (Chronic) COPD (chronic obstructive pulmonary disease) (Chronic) Depression (Chronic) GERD (gastroesophageal reflux disease) (Chronic) Neuropathy (Chronic) Obstructive sleep apnea (Chronic) PTSD (post-traumatic stress disorder) (Chronic) Vitamin D deficiency (Chronic) History of myocardial infarction (Inactive) Tobacco use (Inactive) Surgical History History of coronary artery stent placement (Chronic) History of cholecystectomy (Chronic) History of orchiectomy, unilateral (Chronic) History of heart artery stent (Inactive) Family History Mother Asthma Depression Hypertension Father Hypertension Depression Myocardial infarction Hyperlipemia Social History Smoking Status: Current every day smoker tobacco type: cigars alcohol intake: current alcohol intake frequency: holidays/special occasions only Alcohol type: beer substance use type: marijuana what type of physical activity do you participate in: none HPI HPI Chief Complaint: 3 Mo FU - Diabetes Details: DIVINA LOVE, is a 48yo M who presents to the office today for follow-up of his chronic medical conditions. He has no acute concerns at this time. He states that he stopped smoking about 3 months and 3 days ago. Initially started out with the nicotine patch but has not had to use it lately. He however states that around the initial period of smoking cessation, he was binging on a lot of pretzels cheese and crackers. He states that during that time his blood sugar had been reading over 400. He however states that they have been better controlled lately and he feels well. He has also been following up with pain management in [place] and is currently on medical marijuana. This patient states has helped with his pain in his overall well-being. ROS Const Constitutional: No chills, fatigue, fever(s), frequent falls, malaise, weakness, sleep problems or change in appetite Eyes Eyes: No blurry vision, change in vision, double vision, discharge or visual disturbances ENT ENT: No abnormal hearing, ear pain, ear pressure, tinnitus or dizziness/vertigo Resp Respiratory: No cough, shortness of breath or wheezing Cardio Cardiology: No chest pain at rest, chest pain with exertion, shortness of breath, dyspnea on exertion, generalized swelling, irregular heart rhythm, lightheadedness, orthopnea, fast heart rate or palpitations Gastro GI: No abdominal pain, change in bowel habits, constipation, diarrhea, nausea/dyspepsia or vomiting Genitourinary Male: No difficulty urinating, burning urination, painful urination, urinary incontinence, urinary frequency, urinary urgency, urinary hesitancy, urinary retention, blood in urine, Frequent nighttime urination/ nocturia, sexual problems, testicle lump or testicle pain Musc Musculoskeletal: No joint pain, back pain, joint swelling, limited range of motion, numbness or tingling Skin Skin: No change in skin color, itching, rash or wounds Breast Breast: No breast lump or breast pain Neuro Neurology: No frequent falls, weakness, visual disturbances, abnormal hearing, numbness, tingling, unsteady gait/balance, dizziness, loss of vision or memory loss Psych Psychiatric: No change in appetite, No memory loss, No anxiety, No depression, No Thoughts of harming yourself/Others Endo Endocrine: No fatigue, heat intolerance, increased thirst/drinking, increased hunger or increased urination Aller/Imm Allergy/Immunologic: No wheezing, itchy eyes or seasonal allergy symptoms Caesar/Lymp Hematologic/Lymphatic: No easy bleeding, easy bruising or enlarged lymph nodes Exam Const General: cooperative, no acute distress Orientation: alert, awake, oriented x3 HENMT Head: atraumatic, normocephalic Ears: hearing grossly normal bilaterally Resp Effort AND Inspection: normal respiratory effort, able to speak in complete sentences Auscultation: Bilateral: Diminished Lung Sounds Cardio Rate: regular rate Rhythm: regular rhythm Heart Sounds: S1 normal, S2 normal GI Inspection: obesity Palpation: soft, no hepatosplenomegaly Skin General: dry skin Neuro General: alert, awake, oriented x3, moves all extremities, CN's II-XI intact bilaterally Psych Appearance: grossly normal Mood: congruent mood Affect: normal affect Attitude: cooperative Results POCA1C POC A1C > 14.0 % Last Edit by Rufina Humphreys on 11/22/18 11:42 Assessment AND Plan 1. Type 2 diabetes mellitus with diabetic neuropathic arthropathy E11.610 Plan A1c done in office > 14. Stressed to patient the significance of severely elevated A1C. He believes it is due to his dietary changes when he stopped smoking. Patient states that he is making better choices with his diet now and with less pain he is able to exercise. Advised him to keep a blood sugar log and call the office on Wednesday. Will adjust his insulin based on his log. Orders Orders: 2. Hypertension I10 Plan Optimally controlled. Continue current medication and lifestyle/dietary modifications. 3. Tobacco abuse Z72.0 Plan Last tobacco use was 3 months and 3 days ago. Patient was encouraged. Follow-up at next visit. 4. Chronic pain G89.29 Plan History of PTSD. Now on medical marijuana and he states that his symptoms are very well controlled. Continue current management. This note was generated with [employer]ro[employer] software. It may contain incorrect words, spelling, and punctuation that were not noted in checking the note before signing. . Plan Detail Other Orders Orders: Coding Level of Care Code Off vis,est,level 4 Diagnoses Type 2 diabetes mellitus with diabetic neuropathic arthropathy E11.610 Hypertension I10 Tobacco abuse Z72.0 Chronic pain G89.29 11/22/18 1643 <Electronically signed by Mariaa Molina MD> Date Mariaa Molina MD Cosigner Signature: Date (if applicable) CC: SURGERY VISIT REPORT Observed: 11/22/2018 Status: F Source: [place] 8:25 AM [facility] [address] [place] [address] [address] [place] [address] OFFICE VISIT Date of Service: 11/21/18 MR#: [id number] Acct: [id number] Name: DIVINA LOVE Rep #: [id number] : 1970 Provider: Dmitry Rangel MD Age/Sex: 48/M Location: [facility] Status: Signed Intake Vital Signs11/21/18 Body Mass Index (BMI) 41.6 Intake Visit Reasons: discuss manometry Chief Complaint: manometry Is patient in pain?: Yes Pain scale (1-10): 9 Allergies No Known Allergies Allergy (Verified 11/21/18 14:39) Medications Carvedilol [Coreg] 25 mg PO BID 06/24/15 [History Confirmed 11/21/18] Rosuvastatin Calcium [Crestor] 40 mg PO DAILY 06/24/15 [History Confirmed 11/21/18] cholecalciferol (vitamin D3) 50,000 unit capsule 50,000 unit PO QWEEK 03/07/18 [History Confirmed 11/21/18] pantoprazole 40 mg tablet,delayed release 40 mg PO BID #90 tab 06/06/18 [Rx Confirmed 11/21/18] duloxetine 60 mg capsule,delayed release 60 mg PO BID #180 cap 06/21/18 [Rx Confirmed 11/21/18] furosemide 20 mg tablet 20 mg PO DAILY #90 tab 08/02/18 [Rx Confirmed 11/21/18] aspirin 81 mg tablet,delayed release 81 mg PO DAILY 08/22/18 [History Confirmed 11/21/18] lisinopril 5 mg tablet 5 mg PO QDAY #30 tab 08/23/18 [Rx Confirmed 11/21/18] fenofibrate nanocrystallized 145 mg tablet 145 mg PO DAILY #90 tab 08/25/18 [Rx Confirmed 11/21/18] insulin detemir (U- 100) 100 unit/mL subcutaneous solution 58 unit SC BID #10 ml 08/25/18 [Rx Confirmed 11/21/18] lamotrigine 100 mg tablet 100 mg PO QDAY #90 tab 08/25/18 [Rx Confirmed 11/21/18] sucralfate 1 gram tablet 1 g PO 4X/DAY #120 tab 09/21/18 [Rx Confirmed 11/21/18] clopidogrel 75 mg tablet 75 mg PO DAILY #90 tab 10/25/18 [Rx Confirmed 11/21/18] [facility] Medical History Epigastric pain (Acute) Nausea with vomiting, unspecified (Acute) Shortness of breath (Chronic) CKD (chronic kidney disease), stage III (Chronic) Gastritis (Chronic) Nicotine dependence (Chronic) Type 2 diabetes mellitus with diabetic neuropathic arthropathy (Chronic) Atherosclerosis of coronary artery of [place] heart without angina pectoris (Chronic) Old myocardial infarction (Chronic) Hypertension (Chronic) CKD (chronic kidney disease) stage 2, GFR 60-89 ml/min (Chronic) Hyperlipidemia (Chronic) Morbidly obese (Chronic) COPD (chronic obstructive pulmonary disease) (Chronic) Depression (Chronic) GERD (gastroesophageal reflux disease) (Chronic) Neuropathy (Chronic) Obstructive sleep apnea (Chronic) PTSD (post-traumatic stress disorder) (Chronic) Vitamin D deficiency (Chronic) History of myocardial infarction (Inactive) Tobacco use (Inactive) Surgical History History of coronary artery stent placement (Chronic) History of cholecystectomy (Chronic) History of orchiectomy, unilateral (Chronic) History of heart artery stent (Inactive) Family History Mother Asthma Depression Hypertension Father Hypertension Depression Myocardial infarction Hyperlipemia Social History Smoking Status: Current every day smoker tobacco type: cigars alcohol intake: current alcohol intake frequency: holidays/special occasions only Alcohol type: beer substance use type: marijuana what type of physical activity do you participate in: none HPI HPI HPI: DIVINA LOVE, is a 48 M who presents to the office today for follow-up from an esophageal manometry. Patient underwent his esophageal manometry at [facility] completed on 09/15/2018. This showed 12 swallows were analyzed. The patient has severe abnormalities. The average DCI should be below 5000 and in this patient's average was over 32,000 with one swallow measuring almost 55,000. There were several swallows with retained boluses. The distal latency C is not below 5 seconds, this would make BYRON less likely. Given his increased pressures and multi-peak waves this is suggestive of jackhammer esophagus. The patient continues to have his same symptoms of difficulty swallowing. Exam GI Other: Abdomen is soft and obese. No tenderness Assessment AND Plan Problems 1. 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 And although probably starting him on calcium channel bg or some form of nitrates may be appropriate I am going to defer definitive treatment until I can get a tertiary consultation at a larger institution. I have explained to the patient there is a wide variety of treatments for this. And long-term results are marginal at best. 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 11/22/18 0825 <Electronically signed by Dmitry Rangel MD> Date Dmitry Rangel MD Cosigner Signature: Date (if applicable) CC: Mariaa Molina MD INTERNAL MEDICINE Observed: 08/25/2018 Status: F Source: [place] OFFICE VISIT 5:02 PM [facility] [address] [place] [address] [address] [place] [address] OFFICE VISIT Date of Service: 08/22/18 MR#: [id number] Acct: [id number] Name: DIVINA LOVE Rep #: [id number] : 1970 Provider: Mariaa Molina MD Age/Sex: 48/M Location: [facility] Status: Signed Intake Vital Signs08/22/18 Height 6 ft 1 in Intake Visit Reasons: 3 M FU -Diabetes Chief Complaint: follow-up visit for diabetes mellitus type 2 Is patient in pain?: Yes (hands and legs) Pain scale (1-10): 4 Allergies No Known Allergies Allergy (Verified 07/05/18 08:27) Medications Carvedilol [Coreg] 25 mg PO BID 06/24/15 [History Confirmed 07/05/18] Rosuvastatin Calcium [Crestor] 40 mg PO DAILY 06/24/15 [History Confirmed 07/05/18] cholecalciferol (vitamin D3) 50,000 unit capsule 50,000 unit PO QWEEK 03/07/18 [History Confirmed 07/05/18] fenofibrate nanocrystallized 145 mg tablet 145 mg PO DAILY #90 tab 03/10/18 [Rx Confirmed 07/05/18] lisinopril 2.5 mg tablet 2.5 mg PO QDAY #30 tab 03/24/18 [Rx Confirmed 07/05/18] clopidogrel 75 mg tablet 75 mg PO DAILY #90 tab 05/05/18 [Rx Confirmed 07/05/18] pantoprazole 40 mg tablet,delayed release 40 mg PO BID #90 tab 06/06/18 [Rx Confirmed 07/05/18] lamotrigine 100 mg tablet 100 mg PO QDAY #90 tab 06/09/18 [Rx Confirmed 07/05/18] duloxetine 60 mg capsule,delayed release 60 mg PO BID #180 cap 06/21/18 [Rx Confirmed 07/05/18] furosemide 20 mg tablet 20 mg PO DAILY #90 tab 08/02/18 [Rx] sucralfate 1 gram tablet 1 g PO 4X/DAY #120 tab 08/02/18 [Rx] aspirin 81 mg tablet,delayed release 81 mg PO DAILY 08/22/18 [History Confirmed 08/22/18] insulin detemir (U- 100) 100 unit/mL subcutaneous solution 58 unit SC BID ml 08/22/18 [History Confirmed 08/22/18] [facility] Medical History Nicotine dependence (Chronic) Type 2 diabetes mellitus with diabetic neuropathic arthropathy (Chronic) Atherosclerosis of coronary artery of little traverse heart without angina pectoris (Chronic) Old myocardial infarction (Chronic) Hypertension (Chronic) CKD (chronic kidney disease) stage 2, GFR 60-89 ml/min (Chronic) Hyperlipidemia (Chronic) Morbidly obese (Chronic) COPD (chronic obstructive pulmonary disease) (Chronic) Depression (Chronic) GERD (gastroesophageal reflux disease) (Chronic) Neuropathy (Chronic) Obstructive sleep apnea (Chronic) PTSD (post-traumatic stress disorder) (Chronic) Vitamin D deficiency (Chronic) History of myocardial infarction (Inactive) Tobacco use (Inactive) Surgical History History of coronary artery stent placement (Chronic) History of cholecystectomy (Chronic) History of orchiectomy, unilateral (Chronic) History of heart artery stent (Inactive) Family History Mother Asthma Depression Hypertension Father Hypertension Depression Myocardial infarction Hyperlipemia Social History Smoking Status: Current every day smoker tobacco type: cigars alcohol intake: current alcohol intake frequency: holidays/special occasions only Alcohol type: beer substance use type: marijuana what type of physical activity do you participate in: none HPI HPI Chief Complaint: follow-up visit for diabetes mellitus type 2 Details: DIVINA LOVE, is a 48yo M who presents to the office today for follow-up of diabetes mellitus type 2. He has no acute complaints at this time. He brings along a brief blood sugar log with very blood sugar control. Currently at 58 units of insulin twice daily. Trulicity was recommended at his last visit however patient declined taking this. He otherwise denies any concerns at this time. ROS Const Constitutional: No weight change, body ache, chills, fatigue, sleep problems, fever(s), change in appetite, snoring, weakness, frequent falls, headache(s) or excessive sweating Eyes Eyes: No change in vision, eye pain, light sensitivity or blurry vision ENT ENT: No headache(s), abnormal hearing, ear pain, tinnitus, nasal congestion, sore throat or neck pain Resp Respiratory: No snoring, cough, shortness of breath or wheezing Cardio Cardiology: No excessive sweating, chest pain at rest, chest pain with exertion, shortness of breath, dyspnea on exertion, palpitations, orthopnea or lightheadedness Gastro GI: No abdominal pain, change in bowel habits, constipation, diarrhea, vomiting, nausea/dyspepsia or cramping Genitourinary Male: No painful urination, urinary incontinence, urinary frequency, urinary urgency, blood in urine or testicle pain Musc Musculoskeletal: No neck pain, abnormal walking, joint pain, back pain, limited range of motion, numbness or tingling Skin Skin: No redness, dry skin, itching, lesions, wounds or rash Neuro Neurology: No weakness, frequent falls, headache(s), abnormal hearing, abnormal walking, numbness, tingling, abnormal speech, dizziness or memory loss Psych Psychiatric: No change in appetite, No memory loss, No anxiety, No depression, No Thoughts of harming yourself/Others Endo Endocrine: No fatigue, excessive sweating, cold intolerance, increased thirst/drinking, heat intolerance, flushing or increased hunger Aller/Imm Allergy/Immunologic: No wheezing, itchy eyes, hives or seasonal allergy symptoms Caesar/Lymp Hematologic/Lymphatic: No easy bleeding, easy bruising or enlarged lymph nodes Exam Const General: cooperative, no acute distress Orientation: alert, awake, oriented x3 [facility] Head: atraumatic, normocephalic Ears: hearing grossly normal bilaterally Resp Effort AND Inspection: normal respiratory effort, able to speak in complete sentences Auscultation: Bilateral: Diminished Lung Sounds Cardio Rate: regular rate Rhythm: regular rhythm Heart Sounds: S1 normal, S2 normal GI Inspection: obesity Palpation: soft, no hepatosplenomegaly Skin General: dry skin Neuro General: alert, awake, oriented x3, moves all extremities, CN's II-XI intact bilaterally Psych Appearance: grossly normal Mood: congruent mood Affect: normal affect Attitude: cooperative Assessment AND Plan 1. Type 2 diabetes mellitus with diabetic neuropathic arthropathy E11.610 Plan Still not optimally controlled. Increase Lantus to 60 units twice daily. Continue dietary/lifestyle modifications. Referred to the [facility] weight program. A1c ordered. Follow-up in 3 months Orders Orders: Referrals: 2. Hypertension I10 Plan Optimally controlled. Continue current medication and lifestyle/dietary modifications. 3. CKD (chronic kidney disease), stage III N18.3 Plan Most likely secondary to diabetic nephropathy. Optimal blood sugar and blood pressure control strongly recommended. BMP and urine microalbumin ordered. Follow-up with results. This note was generated with CirroSecureation software. It may contain incorrect words, spelling, and punctuation that were not noted in checking the note before signing. Orders Orders: Plan Detail Other Orders Referrals: Other Medications New: Coding Level of Care Code Off vis,est,level 4 Diagnoses Type 2 diabetes mellitus with diabetic neuropathic arthropathy E11.610 Hypertension I10 CKD (chronic kidney disease), stage III N18.3 08/25/18 1702 <Electronically signed by Mariaa Molina MD> Date Mariaa Molina MD Cosigner Signature: Date (if applicable) CC: BASIC METABOLIC Collected: 08/23/2018 Status: F Source: [facility] PROFILE (BMP) 1:53 PM [facility] TYPE CODE TESTS RESULT OUT OF RANGE REFERENCE UNITS LAB L501.0100 74-106 mg/dL High GLU 117 Result Comment: Fasting Glucose result from 100 to 125 mg/dL suggests IMPAIRED HOMEOSTASIS per A.D.A. criteria. Please note revised GLUCOSE reference range effective 2017. LAB L501.1000 7-18 mg/dL High BUN 23 LAB L501.1100 0.70-1.30 mg/dL High CREAT,SERUM 1.79 Result Comment: The validity of the calculated GFR AND GFRAA in patients over 70 years has not been determined. Clinical correlation is essential. LAB L501.1110 >60 mL/min Low EST GFR 43 Result Comment: Non- GFR Calc LAB L501.1115 >60 mL/min Low EST GFR - AA 52 Result Comment: GFR Calc LAB L501.1300 10-20 RATIO Normal BUN/CRE 12.8 LAB L501.2200 8.5-10.1 mg/dL CA Normal 9.3 LAB L501.5300 136-145 mmol/L NA Normal 141 LAB L501.5600 3.5-5.1 mmol/L K Normal 4.3 LAB L501.5900 98-107 mmol/L CL Normal 106 LAB L501.6100 21.0-32.0 mmol/L Normal CO2 30.0 LAB L501.6200 5-15 Normal GAP 5 Performed By: #### L500.2500 #### [facility] [address] [place], [address] HEMOGLOBIN A1C Collected: 08/23/2018 Status: F Source: [place] 1:53 PM [facility] TYPE CODE TESTS RESULT OUT OF RANGE REFERENCE UNITS LAB L501.9985 4.2-6.3 % High HGB A1C 7.6 Performed By: #### L501.9985 #### [facility] [address] [place], [address] MICROALB:CREAT Collected: 08/23/2018 Status: F Source: [facility] RATIO,RANDOM UR 1:53 PM [facility] TYPE CODE TESTS RESULT OUT OF RANGE REFERENCE UNITS LAB L501.1200 NO RANGE EST. mg/dL Normal UR CREAT 84.70 LAB L502.0500 NO RANGE EST. mg/L Normal 765.0 MICROALBUMIN ,UR LAB L502.0600 <30 mg/g CRE mg/g CRE High 903.2 MALB:CREAT Performed By: #### L502.0250 #### [facility] [address] [place], [address] IMMUNOHISTOCHEMISTRY Observed: 07/06/2018 Status: F Source: [facility] 2:00 PM [facility] Patient: DIVINA LOVE : 1970 (48/M) Acct Num: [id number] Phys: Dmitry Rangel MD Unit Num: [id number] Loc: EN Specimen: [id number] Received: 07/07/18 - 1007 Spec Type: IMMUNO TISSUES TISSUES: Stomach, NOS SPECIMEN INFORMATION: Tissue Source: Antrum biopsy Clinical Info: Epigastric pain, nausea and vomiting Specimen Number: [id number] CPT code: 23096 METHODOLOGY: Deparaffinized sections of prefer/formalin-fixed tissue or PAP/DQ stained slides are incubated with monoclonal/polyclonal antibodies/oligonucleotide probes. Localization is made via biotin free immunoperoxidase method. Appropriate controls are performed and reacted as expected. Results on target cell population are indicated in the following table: RESULTS: ANTIBODY / CLONE RESULT H Pylori (polyclonal) negative These tests were developed and their performance characteristics determined by [facility]. They may not have been cleared or approved by the U.S. Food and Drug Administration. The FDA has determined that such clearance or approval is not necessary. INTERPRETATION: Antrum, biopsy: Negative for Helicobacter pylori organisms. AM:artur 07/08/18 PHYSICIAN [facility] INSTIT[facility] [address] [address] Signed Soy Ila 07/08/18 <signature on file> Performed By: #### PIMM #### [facility] [address] [place] [address]. [place], [address] OPERATIVE REPORT Observed: 07/06/2018 Status: F Source: [place] 1:44 PM [facility] Medical Records Department [address] [place] [address] Operative Report 07/06/18 1340 MR#: [id number] Acct: [id number] Name: DIVINA LOVE Rep #: [id number] : 1970 48 From: Dmitry Rangel MD PCP: Mariaa Molina MD Status: REG [facility] Location: [place] [address] Problem List (1) Epigastric pain Status: Acute (2) Nausea with vomiting, unspecified Status: Acute Qualifiers: Vomiting type: unspecified Vomiting Intractability: unspecified Qualified Code(s): R11.2 - Nausea with vomiting, unspecified Report of Operation Date of Procedure: 07/06/18 Pre-Operative Diagnosis: Epigastric abdominal pain. Nausea and vomiting Post-Operative Diagnosis: Same Surgery/Procedure Performed:: Esophagogastroduodenoscopy with biopsy Type of Anesthesia:: MAC Description of Procedure: Patient was brought into the endoscopy suite. Back of his throat was sprayed with Cetacaine spray. Bite-block was placed. He was placed on the left lateral decubitus position. He was given graded anesthesia. The scope was inserted into the back of the oropharynx and directed down through the esophagus into the stomach and into the duodenum without difficulty. Operative findings: 1. Duodenum: Normal appearance no mass lesions no ulcerations normal ileocecal valve. 2. Stomach: Minimal gastritis was identified H. pylori was obtained in the antrum and sent to pathology for permanent sectioning. No ulcerations no mass lesions retroflexion did not show any signs of obvious hiatal hernia. 3. Esophagus: Normal appearance no mass lesions no esophagitis Z line was at 44 cm and appeared entirely normal. The pain the patient is experiencing is clearly out of proportion to what I have found in his upper scope. He will need to have an esophageal manometry study performed. Can follow-up with me after this is completed. - Admit VTE Documentation VTE Present on Admission: No VTE Mechan Device Prophylaxis: None VTE Pharm Prophylaxis ordered?: No Reason prophylaxis not ordered:: Treatment Not Indicated 07/06/18 1344 <Electronically signed by Dmitry Rangel MD> Date Dmitry Rangel MD CC: Dmitry Rangel MD; Mariaa Molina MD Signed BEDSIDE GLUCOSE Collected: 07/06/2018 Status: F Source: [place] 12:50 PM [facility] TYPE CODE TESTS RESULT OUT OF REFERENCE UNITS RANGE LAB L501.080 70-110 mg/dL High BEDSIDE GLU 159 Result Comment: MANAGEMENT OF PATIENT CARE PER NURSING PROTOCOL Performed By: #### L501.080 #### [facility] Point of Care [address] [place] [address] GASTRIC BIOPSY Observed: 07/06/2018 Status: F Source: [facility] 12:00 AM [facility] Patient: DIVINA LOVE : 1970 (48/M) Acct Num: [id number] Phys: Juan Carlos COHEN,Dmitry Unit Num: [id number] Loc: EN Specimen: [id number] Received: 07/07/18 - 913 Spec Type: Gastric Bx TISSUES TISSUES: Gastric mucous membrane COMMENT The results of immunohistochemistry for Helicobacter pylori will be reported separately ([id number]). GROSS DESCRIPTION Received in fixative is one container labeled with the patient's name and designated antral biopsy. The specimen consists of one irregular fragment of light craig soft tissue that measures 0.5 x 0.5 x 0.1 cm. The specimen is totally submitted in one cassette. / AM:artur 07/07/18 TC:3 CPT: 33742 HEADER OPERATION: EGD ([facility] PRE-OP DIAGNOSIS: Epigastric abdominal pain, nausea and vomiting TISSUE SUBMITTED: Antrum biopsy for H. pylori and pathology MICROSCOPIC DESCRIPTION Slides are reviewed. MICROSCOPIC DIAGNOSIS Gastric antrum, biopsy: Mild chronic inflammation. AM:artur 07/08/18 Signed Soy [facility] 07/08/18 <signature on file> Performed By: #### PGASB #### [facility] [address] [place], [address] INTERNAL MEDICINE Observed: 06/21/2018 Status: F Source: [place] OFFICE VISIT 4:43 PM [facility] [address] [place] [address] [place] [address] OFFICE VISIT Date of Service: 06/21/18 MR#: [id number] Acct: [id number] Name: DIVINA LOVE Rep #: [id number] : 1970 Provider: Mariaa Molina MD Age/Sex: 48/M Location: [facility] Status: Signed Intake Vital Signs06/21/18 Height 6 ft 1 in 06/21/18 Weight: 306 lb 06/21/18 Body Mass Index (BMI) 40.4 06/21/18 Blood Pressure 106/61 Intake Visit Reasons: 2 WK FU Chief Complaint: 2 Wk FU - Diabetes Is patient in pain?: No Allergies No Known Allergies Allergy (Verified 06/21/18 10:14) Medications Carvedilol [Coreg] 25 mg PO BID 06/24/15 [History Confirmed 06/21/18] Rosuvastatin Calcium [Crestor] 40 mg PO DAILY 06/24/15 [History Confirmed 06/21/18] cholecalciferol (vitamin D3) 50,000 unit capsule 50,000 unit PO QWEEK 03/07/18 [History Confirmed 06/21/18] fenofibrate nanocrystallized 145 mg tablet 145 mg PO DAILY #90 tab 03/10/18 [Rx Confirmed 06/21/18] Handicap Placard #1 ea 03/21/18 [Rx Confirmed 06/10/18] lisinopril 2.5 mg tablet 2.5 mg PO QDAY #30 tab 03/24/18 [Rx Confirmed 06/21/18] clopidogrel 75 mg tablet 75 mg PO DAILY #90 tab 05/05/18 [Rx Confirmed 06/21/18] furosemide 20 mg tablet 20 mg PO DAILY #90 tab 05/05/18 [Rx Confirmed 06/21/18] pantoprazole 40 mg tablet,delayed release 40 mg PO BID #90 tab 06/06/18 [Rx Confirmed 06/21/18] lamotrigine 100 mg tablet 100 mg PO QDAY #90 tab 06/09/18 [Rx Confirmed 06/21/18] sucralfate 1 gram tablet 1 g PO 4X/DAY #120 tab 06/09/18 [Rx Confirmed 06/21/18] aspirin 81 mg tablet,delayed release 81 mg PO QDAY 06/21/18 [History Confirmed 06/21/18] dulaglutide 0.75 mg/0.5 mL subcutaneous pen injector 0.75 mg SC QWEEK #2 ml 06/21/18 [Rx Confirmed 06/21/18] duloxetine 60 mg capsule,delayed release 60 mg PO BID #180 cap 06/21/18 [Rx Confirmed 06/21/18] insulin detemir (U-100) 100 unit/mL subcutaneous solution 50 unit SC BID ml 06/21/18 [History] insulin syringe-needle U-100 1 mL 30 gauge x 1/2 See Dose Instructions .ROUTE .MEDSUPPLY #100 ea 06/21/18 [Rx Confirmed 06/21/18] [facility] Medical History Nicotine dependence (Chronic) Type 2 diabetes mellitus with diabetic neuropathic arthropathy (Chronic) Atherosclerosis of coronary artery of little traverse heart without angina pectoris (Chronic) Old myocardial infarction (Chronic) Hypertension (Chronic) CKD (chronic kidney disease) stage 2, GFR 60-89 ml/min (Chronic) Hyperlipidemia (Chronic) Morbidly obese (Chronic) COPD (chronic obstructive pulmonary disease) (Chronic) Depression (Chronic) GERD (gastroesophageal reflux disease) (Chronic) Neuropathy (Chronic) Obstructive sleep apnea (Chronic) PTSD (post-traumatic stress disorder) (Chronic) Vitamin D deficiency (Chronic) History of heart artery stent (Inactive) History of myocardial infarction (Inactive) Tobacco use (Inactive) Surgical History History of coronary artery stent placement (Chronic) History of cholecystectomy (Chronic) History of orchiectomy, unilateral (Chronic) Family History Mother Asthma Depression Hypertension Father Hypertension Depression Myocardial infarction Hyperlipemia Social History Smoking Status: Current every day smoker tobacco type: cigars alcohol intake: current alcohol intake frequency: holidays/special occasions only Alcohol type: beer substance use type: marijuana what type of physical activity do you participate in: none HPI HPI Chief Complaint: 2 Wk FU - Diabetes Details: DIVINA LOVE, is a 48yo M who presents to the office today for follow-up of his diabetes. He has no acute complaints at this time. He brings along with blood sugar log which shows still poorly controlled blood sugars. He is currently only on insulin. ROS Const Constitutional: No chills, fatigue, fever(s), frequent falls, malaise, weakness, sleep problems or change in appetite Eyes Eyes: No blurry vision, change in vision, double vision, discharge or visual disturbances ENT ENT: No abnormal hearing, ear pain, ear pressure, tinnitus or dizziness/vertigo Resp Respiratory: No cough, shortness of breath or wheezing Cardio Cardiology: No chest pain at rest, chest pain with exertion, shortness of breath, dyspnea on exertion, generalized swelling, irregular heart rhythm, lightheadedness, orthopnea, fast heart rate or palpitations Gastro GI: Positive for belching; no abdominal pain, change in bowel habits, constipation, diarrhea, nausea/dyspepsia or vomiting Genitourinary Male: No difficulty urinating, burning urination, painful urination, urinary incontinence, urinary frequency, urinary urgency, urinary hesitancy, urinary retention, blood in urine, Frequent nighttime urination/ nocturia, sexual problems, testicle lump or testicle pain Musc Musculoskeletal: No joint pain, back pain, joint swelling, limited range of motion, numbness or tingling Skin Skin: No change in skin color, itching, rash or wounds Breast Breast: No breast lump or breast pain Neuro Neurology: No frequent falls, weakness, abnormal hearing, numbness, tingling, unsteady gait/balance, dizziness, loss of vision, memory loss or visual disturbances Psych Psychiatric: No memory loss, No anxiety, No change in appetite, No depression, No Thoughts of harming yourself/Others Endo Endocrine: No fatigue, heat intolerance, increased thirst/drinking, increased hunger or increased urination Aller/Imm Allergy/Immunologic: No wheezing, itchy eyes or seasonal allergy symptoms Caesar/Lymp Hematologic/Lymphatic: No easy bleeding, easy bruising or enlarged lymph nodes Exam Const General: cooperative, no acute distress Orientation: alert, awake, oriented x3 [facility] Head: atraumatic, normocephalic Ears: hearing grossly normal bilaterally Resp Effort AND Inspection: normal respiratory effort, able to speak in complete sentences Auscultation: Bilateral: Diminished Lung Sounds Cardio Rate: regular rate Rhythm: regular rhythm Heart Sounds: S1 normal, S2 normal GI Inspection: obesity Palpation: soft, no hepatosplenomegaly Skin General: dry skin Neuro General: alert, awake, oriented x3, moves all extremities, CN's II-XI intact bilaterally Psych Appearance: grossly normal Mood: congruent mood Affect: normal affect Attitude: cooperative Assessment AND Plan 1. Type 2 diabetes mellitus with diabetic neuropathic arthropathy E11.610 Plan Appears to be achieving better control however still not optimal. We will add Trulicity 0.75 mg subcu weekly. Continue long-acting insulin at 50 mg twice daily. Patient declined diabetes education at this time. He has followed up with podiatry. Follow-up with ophthalmology also. Continue blood sugar log. Repeat A1c in 2 months. Also repeat BMP and microalbumin in 2 months. Follow-up in 1 month 2. Shortness of breath R06.02 Plan Possibly secondary to undiagnosed COPD. Patient with a chronic smoking history. Pulmonary function tests ordered. Smoking cessation strongly advised. Orders Orders: 3. CKD (chronic kidney disease), stage III N18.3 Plan Possibly secondary to diabetic nephropathy. Optimal blood sugar and blood pressure control was recommended. Repeat BMP in 2 months. This note was generated with CirroSecureation software. It may contain incorrect words, spelling, and punctuation that were not noted in checking the note before signing. Plan Detail Other Orders Orders: Other Medications New: Coding Level of Care Code Off vis,est,level 4 Diagnoses Type 2 diabetes mellitus with diabetic neuropathic arthropathy E11.610 Shortness of breath R06.02 CKD (chronic kidney disease), stage III N18.3 06/21/18 1643 <Electronically signed by Mariaa Molina MD> Date Mariaa Molina MD Cosigner Signature: Date (if applicable) CC: SURGERY VISIT REPORT Observed: 06/11/2018 Status: F Source: [place] 8:01 AM [facility] [address] [place] [address] [address] [place] [address] OFFICE VISIT Date of Service: 06/10/18 MR#: [id number] Acct: [id number] Name: DIVINA LOVE Rep #: [id number] : 1970 Provider: Dmitry Rangel MD Age/Sex: 48/M Location: [facility] Status: Signed Intake Vital Signs06/10/18 Height 6 ft 1 in 06/10/18 Weight: 307 lb Intake Visit Reasons: Gastritis, without bleeding Chief Complaint: Follow up. Player Services Representative Required: No Is patient in pain?: No Allergies No Known Allergies Allergy (Verified 06/10/18 09:59) Medications Carvedilol [Coreg] 25 mg PO BID 06/24/15 [History Confirmed 06/10/18] Rosuvastatin Calcium [Crestor] 40 mg PO DAILY 06/24/15 [History Confirmed 06/10/18] Duloxetine Hcl [Cymbalta] 60 mg PO BID 02/22/16 [History Confirmed 06/10/18] aspirin 325 mg tablet 81 mg PO QDAY 03/07/18 [History Confirmed 05/28/18] cholecalciferol (vitamin D3) 50,000 unit capsule 50,000 unit PO QWEEK 03/07/18 [History Confirmed 06/10/18] fenofibrate nanocrystallized 145 mg tablet 145 mg PO DAILY #90 tab 03/10/18 [Rx Confirmed 06/10/18] Handicap Placard #1 ea 03/21/18 [Rx Confirmed 06/10/18] lisinopril 2.5 mg tablet 2.5 mg PO QDAY #30 tab 03/24/18 [Rx Confirmed 06/10/18] insulin detemir (U-100) 100 unit/mL subcutaneous solution 44 unit SC BID #10 ml 05/04/18 [Rx Confirmed 06/10/18] clopidogrel 75 mg tablet 75 mg PO DAILY #90 tab 05/05/18 [Rx Confirmed 06/10/18] furosemide 20 mg tablet 20 mg PO DAILY #90 tab 05/05/18 [Rx Confirmed 06/10/18] pantoprazole 40 mg tablet,delayed release 40 mg PO BID #90 tab 06/06/18 [Rx Confirmed 06/10/18] lamotrigine 100 mg tablet 100 mg PO QDAY #90 tab 06/09/18 [Rx Confirmed 06/10/18] sucralfate 1 gram tablet 1 g PO 4X/DAY #120 tab 06/09/18 [Rx Confirmed 06/10/18] [facility] Medical History Nicotine dependence (Chronic) Type 2 diabetes mellitus with diabetic neuropathic arthropathy (Chronic) Atherosclerosis of coronary artery of little traverse heart without angina pectoris (Chronic) Old myocardial infarction (Chronic) Hypertension (Chronic) CKD (chronic kidney disease) stage 2, GFR 60-89 ml/min (Chronic) Hyperlipidemia (Chronic) Morbidly obese (Chronic) COPD (chronic obstructive pulmonary disease) (Chronic) Depression (Chronic) GERD (gastroesophageal reflux disease) (Chronic) Neuropathy (Chronic) Obstructive sleep apnea (Chronic) PTSD (post-traumatic stress disorder) (Chronic) Vitamin D deficiency (Chronic) History of heart artery stent (Inactive) History of myocardial infarction (Inactive) Tobacco use (Inactive) Surgical History History of coronary artery stent placement (Chronic) History of cholecystectomy (Chronic) History of orchiectomy, unilateral (Chronic) Family History Mother Asthma Depression Hypertension Father Hypertension Depression Myocardial infarction Hyperlipemia Social History Smoking Status: Current every day smoker tobacco type: cigars alcohol intake: current alcohol intake frequency: holidays/special occasions only Alcohol type: beer substance use type: marijuana what type of physical activity do you participate in: none HPI HPI HPI: DIVINA LOVE, is a 48 M who presents to the office today for evaluation for possible upper endoscopy. Patient states that around June 01 he was experiencing some significant epigastric abdominal pain he was having sweats nausea vomiting is had persistent dysphagia even despite being on Protonix and Carafate. He has had an episode similar to this in the past and I performed an upper endoscopy on him approximately 2015. Patient states in 2007 he had stents he is unsure if it was drug-eluting or stainless he has never had any other cardiac workup since then and refuses to have any other cardiac workup. He is on blood thinners. He has not noticed any hematochezia or melena. ROS General General: Yes weight change and fatigue; no appetite, colon cancer, breast cancer or weakness HEENT HEENT: Yes difficulty swallowing; no eye injury, eye surgery, swollen glands or hoarseness Endo Endocrine: Yes diabetes mellitus; no thyroid disease, thyroid cancer, Hair loss, heat intolerance or cold intolerance Skin Skin: No rash or changing moles Musc Musculoskeletal: Yes back problems and arthritis; no rheumatoid arthritis, gout or joint pain Cardio Cardiovascular: Yes heart disease, high blood pressure, heart attack and heart stent; no murmur, pacemaker, atrial fibrillation, palpitations, shortness of breat with exertion or chest pain Psych Psychiatric: Yes depression and anxiety; no hearing voices Resp Respiratory: Yes shortness of breath, Yes sleep apnea, Yes cough, No COPD, No asthma, No emphysema, No wheezing Gastro Gastrointestinal: Yes abdominal pain, Yes nausea or vomiting, Yes diarrhea, Yes constipation, No blood in stool, Yes acid reflux, No hemorrhoids, No ulcers, No gallbladder problem (patient no longer has gallbladder), No black,tarry stools Neuro Neurologic: No weakness Exam Const General: well developed, no acute distress, well hydrated Orientation: oriented to person, oriented to place, oriented to time [facility] Head: normocephalic, atraumatic Ears: external ears normal Mouth: moist mucous membranes Eyes Sclera: sclerae normal Pupils: normal by confrontation Neck Neck: no lymphadenopathy noted Neck mass: No Thyroid: symmetrical, thyroid normal Chest Chest palpation AND inspection: normal inspection of the chest Resp Effort AND Inspection: normal respiratory effort Auscultation: clear to auscultation bilaterally Percussion: percussion normal Cardio Rate: regular rate Rhythm: regular rhythm Heart Sounds: no murmurs GI Palpation: soft, no masses, no hepatosplenomegaly, nontender Rectal Exam: other Other: Rectal exam deferred. Extrem General: no clubbing, cyanosis or edema, normal to inspection Assessment AND Plan Problems 1. Epigastric abdominal pain R10.13 2. Nausea and vomiting, intractability of vomiting not specified, unspecified vomiting type R11.2 Plan I have discussed the above with the patient. I have offered the patient esophagogastroduodenoscopy for evaluation. I have explained the risks/benefits of the procedure and described the procedure. I have discussed the risks with the patient, including but not limited to: infection, bleeding, perforation of the GI tract requiring emergency surgery, inability to complete the procedure, injury to any internal organs, complications of anesthesia, etc. - the patient understands and agrees to proceed. I have answered all the patient's questions to the patient's satisfaction and the patient has no further questions. The patient has been given instructions for the colon cleansing preparation. Given that we do not know the exact cardiac status of this individual I am going to leave him on his Plavix and aspirin. He does understand that there is a slight increased risk of bleeding. Coding Level of Care Code Off vis,new,level 3 Diagnoses Epigastric abdominal pain R10.13 Nausea and vomiting, intractability of vomiting not specified, unspecified vomiting type R11.2 Vomiting type: unspecified Vomiting Intractability: unspecified 06/11/18 0800 <Electronically signed by Dmitry Rangel MD> Date Dmitry Perez Signature: Date (if applicable) CC: Mariaa Molina MD INTERNAL MEDICINE Observed: 06/06/2018 Status: F Source: [place] OFFICE VISIT 4:08 PM [facility] Internal Medicine [address] [place] [address] [place] [address] OFFICE VISIT Date of Service: 06/06/18 MR#: [id number] Acct: [id number] Name: DIVINA LOVE Rep #: [id number] : 1970 Provider: Mariaa Molina MD Age/Sex: 48/M Location: [facility] Status: Signed Intake Vital Signs06/06/18 Height 6 ft 1 in 06/06/18 Weight: 307 lb 2 oz Intake Visit Reasons: 3 MO FU Chief Complaint: Follow up. Player Services Representative Required: No Accompanied by: None Is patient in pain?: No Allergies aspirin [ASA] Adverse Reaction (Verified 05/28/18 08:44) Upset Stomach Medications Carvedilol [Coreg] 25 mg PO BID 06/24/15 [History Confirmed 05/28/18] Rosuvastatin Calcium [Crestor] 40 mg PO DAILY 06/24/15 [History Confirmed 05/28/18] Duloxetine Hcl [Cymbalta] 60 mg PO BID 02/22/16 [History Confirmed 05/28/18] aspirin 325 mg tablet 81 mg PO QDAY 03/07/18 [History Confirmed 05/28/18] cholecalciferol (vitamin D3) 50,000 unit capsule 50,000 unit PO QWEEK 03/07/18 [History Confirmed 05/28/18] fenofibrate nanocrystallized 145 mg tablet 145 mg PO DAILY #90 tab 03/10/18 [Rx Confirmed 05/28/18] lamotrigine 100 mg tablet 100 mg PO QDAY #90 tab 03/10/18 [Rx Confirmed 05/28/18] Handicap Placard #1 ea 03/21/18 [Rx Confirmed 03/23/18] lisinopril 2.5 mg tablet 2.5 mg PO QDAY #30 tab 03/24/18 [Rx Confirmed 05/28/18] insulin detemir (U-100) 100 unit/mL subcutaneous solution 44 unit SC BID #10 ml 05/04/18 [Rx Confirmed 05/28/18] clopidogrel 75 mg tablet 75 mg PO DAILY #90 tab 05/05/18 [Rx Confirmed 05/28/18] furosemide 20 mg tablet 20 mg PO DAILY #90 tab 05/05/18 [Rx Confirmed 05/28/18] sucralfate 1 gram tablet 1 g PO 4X/DAY #120 tab 05/10/18 [Rx Confirmed 05/28/18] Ondansetron [Zofran Odt] 4 mg PO Q8H PRN PRN #10 tab 05/28/18 [Rx] Oxycodone HCl/Acetaminophen [Percocet 5/325] 1 tab PO Q6H PRN PRN 3 Days #12 tab 05/28/18 [Rx] pantoprazole 40 mg tablet,delayed release 40 mg PO BID #90 tab 06/06/18 [Rx Confirmed 06/06/18] [facility] Medical History Nicotine dependence (Chronic) Type 2 diabetes mellitus with diabetic neuropathic arthropathy (Chronic) Atherosclerosis of coronary artery of little [place] heart without angina pectoris (Chronic) Old myocardial infarction (Chronic) Hypertension (Chronic) CKD (chronic kidney disease) stage 2, GFR 60-89 ml/min (Chronic) Hyperlipidemia (Chronic) Morbidly obese (Chronic) COPD (chronic obstructive pulmonary disease) (Chronic) Depression (Chronic) GERD (gastroesophageal reflux disease) (Chronic) Neuropathy (Chronic) Obstructive sleep apnea (Chronic) PTSD (post-traumatic stress disorder) (Chronic) Vitamin D deficiency (Chronic) History of heart artery stent (Inactive) History of myocardial infarction (Inactive) Tobacco use (Inactive) Surgical History History of coronary artery stent placement (Chronic) History of cholecystectomy (Chronic) History of orchiectomy, unilateral (Chronic) Family History Mother Asthma Depression Hypertension Father Hypertension Depression Myocardial infarction Hyperlipemia Social History Smoking Status: Current every day smoker tobacco type: cigars alcohol intake: current alcohol intake frequency: holidays/special occasions only Alcohol type: beer substance use type: marijuana what type of physical activity do you participate in: none HPI HPI Chief Complaint: Follow up. Details: DIVINA LOVE, is a 48yo M who presents to the office today for follow-up. He was recently seen in the emergency room manages a case of acute gastritis. He appears to have had more flareups lately. He has come down from 325 of aspirin to 81 mg daily however, he still smokes daily. Last EGD was said to be about [address] Rangel. ROS Const Constitutional: No body ache, chills, fatigue, fever(s), frequent falls, headache(s), weight change, sleep problems, change in appetite, snoring, excessive sweating or weakness Eyes Eyes: No blurry vision, change in vision, eye pain or light sensitivity ENT ENT: No headache(s), abnormal hearing, ear pain, tinnitus, nasal congestion, nasal discharge, sore throat or neck pain Resp Respiratory: No snoring, cough, shortness of breath or wheezing Cardio Cardiology: No excessive sweating, chest pain at rest, chest pain with exertion, shortness of breath, dyspnea on exertion, orthopnea, palpitations or lightheadedness Gastro GI: No abdominal pain, change in bowel habits, diarrhea, constipation, vomiting, nausea/dyspepsia or cramping Musc Musculoskeletal: No neck pain, abnormal walking, joint pain, back pain, limited range of motion, numbness or tingling Skin Skin: No redness, dry skin, itching, lesions, wounds or rash Neuro Neurology: No frequent falls, headache(s), weakness, abnormal hearing, abnormal walking, numbness, tingling, abnormal speech, dizziness or memory loss Psych Psychiatric: No change in appetite, No memory loss, No anxiety, No depression, No Thoughts of harming yourself/Others Endo Endocrine: No fatigue, excessive sweating, cold intolerance, increased thirst/drinking, heat intolerance, increased hunger or flushing Aller/Imm Allergy/Immunologic: No wheezing, itchy eyes, seasonal allergy symptoms or hives Caesar/Lymp Hematologic/Lymphatic: No easy bleeding, easy bruising or enlarged lymph nodes Exam Const General: cooperative, no acute distress Orientation: alert, awake, oriented x3 HENMT Head: atraumatic, normocephalic Ears: hearing grossly normal bilaterally Resp Effort AND Inspection: normal respiratory effort, able to speak in complete sentences Auscultation: Bilateral: Clear to Auscultation Cardio Rate: regular rate Rhythm: regular rhythm Heart Sounds: S1 normal, S2 normal GI Inspection: obesity Palpation: soft, no hepatosplenomegaly Skin General: dry skin Neuro General: alert, awake, oriented x3, moves all extremities, CN's II-XI intact bilaterally Psych Appearance: grossly normal Mood: congruent mood Affect: normal affect Attitude: cooperative Assessment AND Plan 1. Gastritis K29.70 Plan Chronic/recurrent. Most recent exacerbation appears to have now resolved. Dietary and lifestyle modifications discussed. Continue current medications. Follow-up with Dr. Rangel for repeat EGD. Orders Referrals: 2. Type 2 diabetes mellitus with diabetic neuropathic arthropathy E11.610 Plan Poorly controlled. Last A1c of 8.2. Patient does not routinely check his blood sugars at home. He was advised to keep a blood sugar log. Follow-up in 2 weeks. Possibly start on Trulicity at next visit. Also possibly refer to diabetes education. 3. CKD (chronic kidney disease), stage III N18.3 Plan Possibly secondary to diabetic nephropathy. Evidence of urine microalbuminuria. Optimal diabetes control recommended. Continue current medications. This note was generated with [employer] dictation software. It may contain incorrect words, spelling, and punctuation that were not noted in checking the note before signing. Plan Detail Other Medications Refilled: Coding Level of Care Code Off vis,est,level 3 Diagnoses Gastritis K29.70 Type 2 diabetes mellitus with diabetic neuropathic arthropathy E11.610 CKD (chronic kidney disease), stage III N18.3 06/06/18 1608 <Electronically signed by Mariaa Molina MD> Date Mariaa Molina MD Cosigner Signature: Date (if applicable) CC: 12 LEAD ELECTROCARDIOGRAM Observed: 05/31/2018 Status: F Source: [place] 1:32 PM [facility] Cardiovascular Services [address] [place] [address] [place] [address] 12 Lead EKG 05/28/18 0340 MR#: [id number] Acct: [id number] Name: IVANDIVINA B Rep #: [id number] : 1970 48 From: Dmitry Marina MD Attending Dr: Status: DEP ER Ordering Dr: Harley Bustillo MD Date: 05/28/18 Location: ED Sex: M C Admitted: Test Reason : CP Blood Pressure : / mmHG Vent. Rate : 061 BPM Atrial Rate : 061 BPM P-R Int : 150 ms QRS Dur : 096 ms QT Int : 430 ms P-R-T Axes : 003 072 068 degrees QTc Int : 432 ms Normal sinus rhythm Inferior infarct , age undetermined Anterolateral infarct , age undetermined Abnormal ECG Confirmed by DMITRY MARINA ([id number]), multimedia editor ROGER NICHOLE ([id number]) on 05/31/2018 1:32:17 PM Referred By: DEE Confirmed By:DMITRY MARINA 05/31/18 133 Date Dmitry Marina MD CC: Mariaa Molina MD; Harley Bustillo MD Signed 12 LEAD ELECTROCARDIOGRAM Observed: 05/31/2018 Status: F Source: [place] 1:18 PM [facility] Cardiovascular Services [address] [place] [address] 12 Lead EKG 05/28/18 0916 MR#: [id number] Acct: [id number] Name: DIVINA LOVE Rep #: [id number] : 1970 48 From: Esau Bosch MD Attending Dr: Status: DEP ER Ordering Dr: Chacha Silva MD Date: 05/28/18 Location: ED Sex: M C Admitted: Test Reason : ABD Blood Pressure : / mmHG Vent. Rate : 059 BPM Atrial Rate : 059 BPM P-R Int : 162 ms QRS Dur : 096 ms QT Int : 452 ms P-R-T Axes : -01 034 041 degrees QTc Int : 447 ms Sinus bradycardia Inferior infarct , age undetermined Anterolateral infarct , age undetermined Abnormal ECG Confirmed by DANITZA COHEN, ESAU ([id number]), multimedia editor ROGER NICHOLE ([id number]) on 05/31/2018 1:18:16 PM Referred By: GERMAINE Confirmed By:ESAU BOSCH MD 05/31/18 1318 Date Esau Bosch MD CC: Mariaa Molina MD; Chacha Silva MD Signed EMERGENCY DEPARTMENT Observed: 05/28/2018 Status: F Source: [place] SUMMARY 4:26 PM [facility] Medical Records Department [address] [place] [address] Emergency Department Summary 05/28/18 0908 MR#: [id number] Acct: [id number] Name: DIVINA LOVE Rep #: [id number] : 1970 48 From: Chacha Silva MD PCP: Mariaa Molina MD Status: DEP ER - ER Visit Summary Date of Service: 05/28/18 Chief Complaint: Abdominal pain History of Present Illness: The patient is a 48 M reports a history of severe gastritis and states his pain has been flaring up for the past 3 days. He does report some chills and some mild dysuria which is not normal. He complains of nausea. Past history is also significant for coronary disease with multiple MIs, diabetes, hypertension, high cholesterol, chronic kidney disease. He has had prior cholecystectomy and has 2 cardiac stents. Physical Examination: Vital signs significant for blood pressure 172/81, otherwise normal. Patient sitting upright in bed. He is in no acute distress. Heart is regular rate and rhythm. Lung sounds are clear. Abdomen is soft with moderate tenderness of the upper abdomen. No guarding or rebound. Hypoactive bowel sounds are noted throughout. Test Results: EKG is sinus bradycardia 59 bpm with no sign of acute ischemia. CBC reveals a white count 12.3 with normal differential. Chemistry studies reveal glucose of 188, BUN 27, creatinine 1.97. This appears consistent with his prior renal function. LFTs and lipase are normal. Urinalysis shows no sign of infection. Troponin is 0.019. Chest x-ray shows chronic changes with no evidence of free air. Emergency Department Course and Treatment: Patient is given Dilaudid, Zofran, Protonix, and IV fluids. Repeat evaluation he feels much improved. He has Carafate and Protonix at home. I did do an oars report he has had no prescriptions in the past 2 years. He will be given a prescription for Zofran along with a few Percocet. Treatment Plan: [] Disposition: Discharge Impression: Gastritis This note was generated with [employer] software. It may contain incorrect words, spelling, and punctuation that were not noted in review of the chart prior to signing ED Disposition - Plan for ED Patient: Chief Complaint: Abd Pain Referrals: Mariaa Molina MD [Primary Care Provider] - What to do if you have Problems For any increased pain, shortness of breath, bleeding, nausea or vomiting, chest pain, or any unexpected problems, contact your Primary Care Provider. Call [facility] ([phone]) or report to the closest Emergency Room. Call 911 if necessary. 05/28/18 1626 <Electronically signed by Chacha Silva MD> Date Chacha Silva MD Cosigner Signature (If Indicated): Date CC: Mariaa Molina MD DISCHARGE INSTRUCTION Observed: 05/28/2018 Status: F Source: [place] 10:59 AM [facility] Medical Records Department [address] [place] [address] Discharge Instruction 05/28/18 1056 MR#: [id number] Acct: [id number] Name: DIVINA LOVE Rep #: [id number] : 1970 48 From: Chacha Silva MD PCP: Mariaa Molina MD Status: REG ER ED Disposition - Plan for ED Patient: Disposition: Home or Assisted Living Chief Complaint: Abd Pain Instructions: ED Gastritis Prescriptions: Oxycodone HCl/Acetaminophen [Percocet 5/325] 1 tablet PO Q6H PRN PRN 3 Days #12 tablet PRN Reason: Pain Ondansetron [Zofran Odt] 4 mg PO Q8H PRN PRN #10 tab PRN Reason: Nausea Referrals: Mariaa Molina MD [Primary Care Provider] - 1 Week What to do if you have Problems For any increased pain, shortness of breath, bleeding, nausea or vomiting, chest pain, or any unexpected problems, contact your Primary Care Provider. Call [facility] ([phone]) or report to the closest Emergency Room. Call 911 if necessary. 05/28/18 1051 <Electronically signed by Chacha Silva MD> Date Chacha Silva MD Cosigner Signature (If Indicated): Date CC: Mariaa Molina MD CHEST 1 VIEW Observed: 05/28/2018 Status: F Source: [place] (PORTABLE) 10:07 AM [facility] Imaging Services [address] [place] [address] Chest 1 View (Portable) MR#: [id number] Acct: [id number] Name: DIVINA LOVE Rep #: [id number] : 1970 M 48 From: Du Da Silva PCP: Mariaa Molina MD Status: REG ER Study: Chest 1 View (Portable) Date of Exam: 05/28/18 Exam# [id number] Ordering Dr: Chacha Silva MD STUDY: X-RAY CHEST REASON FOR EXAM: Male, 48 years old. Shortness of breath TECHNIQUE: Single AP portable view of the chest. COMPARISON: 08/12/2017. FINDINGS: The lungs are clear and expanded. There is no demonstrated pleural abnormality. Normal size heart. Normal mediastinum and jesica. Normal visualized pulmonary arteries. Normal visualized aortic arch and descending thoracic aorta. Normal visualized thoracic spine. Normal visualized ribs, clavicles, and shoulders. There is no demonstrated abnormality of the visualized soft tissue structures of the upper abdomen. RAD/Chest 1 View (Portable) IMPRESSION: No acute cardiopulmonary disease. Electronically Signed: Du Da Silva DO at 10:38 EDT , Service support , CC: Mariaa Molina MD; Chacha Silva MD Crocheter Hand: Signed URINALYSIS, COMPLETE Collected: 05/28/2018 Status: F Source: [place] 9:45 AM [facility] Order Comment: Order Date: 05/28/18 Has pt arrived? Y How was Urine Obtained? SOFTWARE APPLICATIONS ARCHITECT TO SPECIFY TYPE CODE TESTS RESULT OUT OF RANGE REFERENCE UNITS LAB L400.3000 Yellow COLOR Normal Yellow LAB L400.3050 Clear Normal CLARITY Sl. Cloudy LAB L400.3200 Normal mg/dl High 50 GLUCOSE, UR LAB L400.3300 Negative mg/dL Normal BILIRUBIN URINE Negative LAB L400.3400 Negative mg/dl High 5 KETONE UR LAB L400.3465 1.002-1.030 Normal SP.GR. DIPSTX 1.015 LAB L400.3550 5.0 - 8.0 pH UR Normal 8.0 LAB L400.3600 Negative mg/dl High PROT DIPSTX 500 LAB L400.3700 Normal mg/dl High 4 UROBILI LAB L400.3750 Negative Normal NITRITE UR Negative LAB L400.3780 Negative /ul High 25 OCCULT BLOOD-UR LAB L400.3800 Negative /ul High LEUK 25 ESTERASE LAB L400.4050 0-5 /hpf WBC Normal 0-5 SEEN LAB L400.4100 0-5 /hpf 0 Normal RBC-UA SEEN LAB L400.4150 0-5 /hpf SQUAM 0 Normal EPI SEEN LAB L400.4300 None Seen /hpf Normal BACTERIA RARE LAB L400.4350 <or=2+ /hpf 0 Normal MUCUS, URINE SEEN Performed By: #### L400.0001 #### [facility] [address] [place], [place], [id number] CBC W/DIFF, AUTOMATED Collected: 05/28/2018 Status: F Source: [place] 9:15 AM [facility] TYPE CODE TESTS RESULT OUT OF RANGE REFERENCE UNITS LAB L100.1000 4.4-11.0 K/mm3 High WBC 12.3 LAB L100.1200 4.6-6.2 M/mm3 Normal RBC 5.38 LAB L100.1300 13.0-16.5 g/dl Normal HGB 15.4 LAB L100.1400 40-54 % Normal HCT 45.1 LAB L100.1500 80-94 fL Normal MCV 83.8 LAB L100.1600 27.0-32.0 pg Normal MCH 28.6 LAB L100.1700 32-36 g/gl Normal MCHC 34.1 LAB L100.1810 11.6-14.6 % High RDW CV 15.7 LAB L100.1820 35.1-43.9 fl High RDW SD 47.9 LAB L100.1900 150-450 K/mm3 Normal PLT 248 LAB L100.2000 6.2-12.0 fl Normal MPV 10.3 LAB L100.2100 47-70 % Normal NEUT% 57.4 LAB L100.2200 19-41 % Normal LY% 33.7 LAB L100.2300 0-10 % Normal MONO% 8.4 LAB L100.2400 0-5 % Normal EO% 0.2 LAB L100.2500 0-1 % Normal BASO% 0.1 LAB L100.2550 0.0-0.9 % Normal IM GRAN % 0.200 Result Comment: IG% - Immature Granulocytes (promyelocytes, myelocytes and metamyelocytes) > 1% indicates that a LEFT SHIFT is Present. LAB L100.2620 2.0-7.7 X10 3/uL Normal Absolute Neut 7.1 LAB L100.2720 0.83-4.51 X10 3/ul Normal Absolute Lymph 4.13 Performed By: #### L100.0100 #### [facility] [address] [place], [place], [address] BASIC METABOLIC Collected: 05/28/2018 Status: F Source: [place] PROFILE (BMP) 9:15 AM [facility] TYPE CODE TESTS RESULT OUT OF RANGE REFERENCE UNITS LAB L501.0100 74-106 mg/dL High GLU 188 Result Comment: Fasting Glucose result greater than or equal to 126 mg/dL suggests DIABETES MELLITUS per A.D.A. criteria. Please note revised GLUCOSE reference range effective 2017. LAB L501.1000 7-18 mg/dL High BUN 27 LAB L501.1100 0.70-1.30 mg/dL High CREAT,SERUM 1.97 Result Comment: The validity of the calculated GFR AND GFRAA in patients over 70 years has not been determined. Clinical correlation is essential. LAB L501.1110 >60 mL/min Low EST GFR 39 Result Comment: Non- GFR Calc LAB L501.1115 >60 mL/min Low EST GFR - AA 47 Result Comment: GFR Calc LAB L501.1255 ml/min Normal Estimated CRCL 51.26 LAB L501.1300 10-20 RATIO Normal BUN/CRE 13.7 LAB L501.2200 8.5-10 mg/dL Normal .1 CA 9.9 LAB L501.5300 136-14 mmol/L Low 5 NA 134 LAB L501.5600 3.5-5. mmol/L Normal 1 K 3.9 LAB L501.5900 98-107 mmol/L Normal CL 102 LAB L501.6100 21.0-3 mmol/L Normal 2.0 CO2 24.0 LAB L501.6200 5-15 Normal GAP 8 Performed By: #### L500.2500, L500.3400, L501.2450, L501.4010 #### [facility] [address] [place], [place], [address] LIVER PROFILE Collected: 05/28/2018 Status: F Source: [place] 9:15 AM [facility] TYPE CODE TESTS RESULT OUT OF RANGE REFERENCE UNITS LAB L501.1500 6.4-8.2 g/dL Normal T PROT 7.8 LAB L501.1800 3.2-5.0 g/dL Normal ALB 3.5 LAB L501.1950 2.2-4.2 g/dL High GLOB 4.3 LAB L501.4100 15-37 U/L Normal AST 16 LAB L501.4305 45-117 U/L Normal ALK P 46 LAB L501.4405 16-61 U/L Normal ALT 19 LAB L501.4600 0.20-1.00 mg/dL Normal T BILI 0.70 LAB L501.4700 0.00-0.30 mg/dL Normal D BILI 0.25 Performed By: #### L500.2500, L500.3400, L501.2450, L501.4010 #### [facility] [address] [place], [place], [address] LIPASE Collected: 05/28/2018 Status: F Source: [place] 9:15 AM [facility] TYPE CODE TESTS RESULT OUT OF RANGE REFERENCE UNITS LAB L501.2450 73-393 U/L Normal LIPASE 155 Performed By: #### L500.2500, L500.3400, L501.2450, L501.4010 #### [facility] [address] [place], [address] TROPONIN-I Collected: 05/28/2018 Status: F Source: [place] 9:15 AM [facility] TYPE CODE TESTS RESULT OUT OF RANGE REFERENCE UNITS LAB L501.4010 <0.045 ng/mL Normal 0.019 TROPONIN-I Result Comment: TROPONIN-I EXPECTED VALUES <0.045 Negative 0.045 - 0.590 Consistent with Cardiac Damage > OR = 0.600 Critical Value Not every elevated troponin is indicative of AK. These values should be used with clinical judgement in examining the patient's clinical picture for diagnosis. To establish a diagnosis of AK versus myocardial injury, there must be a demonstrated rise and/or fall in the troponin values, in addition to ischemic symptoms, EKG changes, new regional wall motion abnormality, and/or angiographical evidence. PLEASE NOTE: REFERENCE RANGES EDITED 18 Performed By: #### L500.2500, L500.3400, L501.2450, L501.4010 #### [facility] [address] [place], [address] EMERGENCY DEPARTMENT Observed: 05/28/2018 Status: F Source: [place]IV[place] SUMMARY 6:53 AM [facility] Medical Records Department [address] [place] [address] Emergency Department Summary 05/28/18 0410 MR#: [id number] Acct: [id number] Name: DIVINA LOVE Rep #: [id number] : 1970 48 From: Harley Bustillo MD PCP: Mariaa Molina MD Status: DEP ER - ER Visit Summary Date of Service: 05/28/18 Chief Complaint: [] Chest and abdominal burning History of Present Illness: The patient is a 48 M history of chest and abdominal burning for last 3 days gradual onset continuous burning sensation central chest and epigastric. He has a history of significant gastritis. He has been seen in the emergency department for this in the past. He is on Carafate and Protonix. He does have history of coronary artery disease and has 2 stents. He is on aspirin and Plavix. He took his aspirin today. Physical Examination: [] Vital signs reviewed General: Well-nourished well-developed Head: Normocephalic atraumatic Eyes: Pupils equal round and reactive to light extraocular movements intact ENT: TMs clear no hemotympanum no trauma Neck: Nontender full range of motion Cardiovascular: Regular rate rhythm no murmurs normal S1-S2 Respiratory: No distress clear to auscultation bilaterally chest nontender Abdomen: Soft nontender nondistended normal bowel sounds no masses Back: Nontender no CVA tenderness Extremities: Nontender active range of motion 4 extremities no trauma Skin: Normal color no trauma Neuro alert oriented cranial nerves II through XII intact normal strength sensation reflexes Test Results: [] Emergency Department Course and Treatment: [] EKG obtained shows sinus rhythm at a rate of 61 without STEMI. Lab work was ordered as well as a chest x- ray. Dilaudid was ordered. The patient declined any Protonix or GI cocktail. Soon after these were ordered the patient eloped from the emergency department. We did not get lab work or chest x-ray. Most of the time he was here he was arguing arguing at the nursing staff and then decided to leave. Treatment Plan: [] Disposition: [] Impression: [] Chest pain Abdominal pain This note was generated with [employer] dictation software. It may contain incorrect words, spelling, and punctuation that were not noted in review of the chart prior to signing ED Disposition - Plan for ED Patient: Chief Complaint: Chest Pain Referrals: Mariaa Molina MD [Primary Care Provider] - What to do if you have Problems For any increased pain, shortness of breath, bleeding, nausea or vomiting, chest pain, or any unexpected problems, contact your Primary Care Provider. Call [facility] ([phone]) or report to the closest Emergency Room. Call 911 if necessary. 05/28/18 0653 <Electronically signed by Harley Bustillo MD> Date Harley Bustillo MD Cosigner Signature (If Indicated): Date CC: Mariaa Molina MD INTERNAL MEDICINE Observed: 03/25/2018 Status: F Source: [place] OFFICE VISIT 1:02 PM [facility] Internal Medicine [address] [place] [address] [place] [address] OFFICE VISIT Date of Service: 03/07/18 MR#: [id number] Acct: [id number] Name: DIVINA LOVE Rep #: [id number] : 1970 Provider: Mariaa Molina MD Age/Sex: 47/M Location: [facility] Status: Signed Intake Vital Signs03/07/18 Height 6 ft 1 in Intake Visit Reasons: EST CARE Chief Complaint: establish care visit Is patient in pain?: No Allergies aspirin [ASA] Adverse Reaction (Verified 08/15/17 04:18) Upset Stomach Medications Carvedilol [Coreg] 25 mg PO BID 06/24/15 [History Confirmed 03/07/18] Clopidogrel Bisulfate [Plavix] 75 mg PO DAILY 06/24/15 [History Confirmed 03/07/18] Rosuvastatin Calcium [Crestor] 40 mg PO DAILY 06/24/15 [History Confirmed 03/07/18] Duloxetine Hcl [Cymbalta] 60 mg PO BID 02/22/16 [History Confirmed 03/07/18] Furosemide [Lasix] 20 mg PO DAILY 02/22/16 [History Confirmed 03/07/18] Sucralfate [Carafate] 1 gm PO 4X/DAY #60 tab 02/22/16 [Rx Confirmed 03/07/18] Insulin Detemir [Levemir] 44 unit SQ BID 08/12/17 [History Confirmed 03/07/18] Lisinopril [Zestril] 2.5 mg PO DAILY 08/12/17 [History Confirmed 03/07/18] Pantoprazole Sodium [Protonix] 40 mg PO BID 08/12/17 [History Confirmed 03/07/18] aspirin 325 mg tablet 325 mg PO QDAY 03/07/18 [History Confirmed 03/07/18] cholecalciferol (vitamin D3) 50,000 unit capsule 50,000 unit PO QWEEK 03/07/18 [History Confirmed 03/07/18] docusate sodium 50 mg capsule 50 mg PO QDAY 03/07/18 [History Confirmed 03/07/18] nicotine 21mg/24hr-14mg/24hr-7mg/24hr daily transderm patch,sequential 1 patch TRANSDERMAL ONCE #56 patch 03/07/18 [Rx Confirmed 03/07/18] fenofibrate nanocrystallized 145 mg tablet 145 mg PO DAILY #90 tab 03/10/18 [Rx] lamotrigine 100 mg tablet 100 mg PO QDAY #90 tab 03/10/18 [Rx] PFSH Medical History History of heart artery stent (Acute) History of myocardial infarction (Acute) Vitamin D deficiency (Chronic) Arthritis (Chronic) PTSD (post-traumatic stress disorder) (Chronic) Depression (Chronic) Type 2 diabetes mellitus (Chronic) Neuropathy (Chronic) GERD (gastroesophageal reflux disease) (Chronic) Hearing loss (Chronic) Surgical History History of cholecystectomy (Acute) history of left testicle removal (Acute) Family History Mother Asthma Depression Hypertension Father Hypertension Depression Myocardial infarction Hyperlipemia Social History Smoking Status: Current every day smoker tobacco type: cigars alcohol intake: current alcohol intake frequency: holidays/special occasions only Alcohol type: beer substance use type: marijuana what type of physical activity do you participate in: none HPI HPI Chief Complaint: establish care visit Details: DIVINA LOVE, is a 47yo M who presents to the office today to establish care. He had previously followed up at the [facility] with Dr. Cummings. He reports a history of posttraumatic stress disorder had previously been in counseling however he has not been seen recently due to insurance issues. Patient states that he has had a hard time dealing with his PTSD. He will like a referral to a new counselor. Reports a history of 5 episodes of myocardial infarction with last episode in 2008 status post stent.. Patient he was last seen by cardiology about 5 years ago. He is currently on 325 mg of aspirin and Plavix daily. He is unsure why he is still in 325 mg. He however reports significant gastritis. ROS Const Constitutional: Positive for fatigue; no weight change, body ache, chills, sleep problems, fever(s), change in appetite, snoring, frequent falls, headache(s) or excessive sweating Eyes Eyes: No change in vision, eye pain, light sensitivity or blurry vision ENT ENT: No headache(s), abnormal hearing, ear pain, tinnitus, nasal congestion, sore throat or neck pain Resp Respiratory: Positive for cough Cough: Yes non-productive; no snoring, shortness of breath or wheezing Cardio Cardiology: No excessive sweating, chest pain at rest, chest pain with exertion, shortness of breath, dyspnea on exertion, palpitations, orthopnea or lightheadedness Gastro GI: No abdominal pain, change in bowel habits, constipation, diarrhea, vomiting, nausea/dyspepsia or cramping Genitourinary Male: No painful urination, urinary incontinence, urinary frequency, urinary urgency, blood in urine, testicle pain or other Musc Musculoskeletal: Positive for joint pain, back pain, numbness and tingling (hands and feet); no neck pain, abnormal walking or limited range of motion Skin Skin: No redness, dry skin, itching, lesions, wounds or rash Neuro Neurology: Positive for numbness and tingling (hands and feet); no frequent falls, headache(s), abnormal hearing, abnormal walking, abnormal speech, dizziness or memory loss Psych Psychiatric: No change in appetite, No memory loss, Positive for anxiety, Positive for depression, No Thoughts of harming yourself/Others, Positive for irritability Endo Endocrine: Positive for fatigue; no excessive sweating, cold intolerance, increased thirst/drinking, heat intolerance, flushing or increased hunger Aller/Imm Allergy/Immunologic: No wheezing, itchy eyes, hives or seasonal allergy symptoms Caesar/Lymp Hematologic/Lymphatic: No easy bleeding, easy bruising or enlarged lymph nodes Exam Const General: cooperative, no acute distress Orientation: alert, awake, oriented x3 HENMT Head: atraumatic, normocephalic Ears: hearing grossly normal bilaterally Resp Effort AND Inspection: normal respiratory effort, able to speak in complete sentences Auscultation: Bilateral: Clear to Auscultation Cardio Rate: regular rate Rhythm: regular rhythm Heart Sounds: S1 normal, S2 normal GI Inspection: obesity Palpation: soft, no hepatosplenomegaly Skin General: dry skin Neuro General: alert, awake, oriented x3, moves all extremities, CN's II-XI intact bilaterally Extrem Other: Bilateral stasis dermatitis. Trace to 1+ pitting edema extending to the mid serrato bilaterally. Poor feet hygiene with callus. Psych Appearance: grossly normal Mood: congruent mood Affect: normal affect Attitude: cooperative Assessment AND Plan 1. PTSD (post-traumatic stress disorder) F43.10 Plan Poorly controlled per patient. Had been actively involved in counseling until lately due to insurance issues. Referred to the [facility]. Continue current medications. Follow-up at next visit. Orders Referrals: 2. CAD (coronary artery disease) I25.10 Plan Patient states that he has had about 5 myocardial infarctions status post stent with last episode in 2008. He is currently on 325 mg of aspirin and Plavix daily. He states that he has been on this for at least 5 years. My concern is if he still needs 325 mg of aspirin. Especially, considering his significant gastritis. If he still needs dual antiplatelet, i believe he will benefit from low-dose aspirin instead. Will retrieve records from prior physicians. Referred to cardiology. Orders Referrals: 3. Type 2 diabetes mellitus E11.9 Plan Chronic and not optimally controlled. Last A1c was 7.2 per patient this is 1 of his best numbers. Currently on insulin. He reports compliance. A1c ordered. Microalbumin creatinine ratio also ordered. Continue current medications. Will follow-up with results. Orders Orders: Referrals: 4. Neuropathy G62.9 Plan Secondary to diabetes. Currently on Cymbalta. Poor feet hygiene on examination. Lengthy discussion on the need for proper foot wear at all times and feet hygiene. Also educated on examining his feet daily. Referred to podiatry. Continue current medications. 5. Hyperlipidemia E78.5 Plan Labs ordered. Follow-up with results. Orders Orders: Plan Detail Other Orders Orders: Other Medications New: Follow Up 3 Months Coding Level of Care Code Off vis,new,level 4 Diagnoses PTSD (post-traumatic stress disorder) F43.10 CAD (coronary artery disease) I25.10 Type 2 diabetes mellitus E11.9 Neuropathy G62.9 Hyperlipidemia E78.5 03/25/18 1302 <Electronically signed by Mariaa Molina MD> Date Mariaa Molina MD Cosigner Signature: Date (if applicable) CC: CARDIOLOGY VISIT Observed: 03/23/2018 Status: F Source: [place] REPORT 3:01 PM [facility] [address] [place] [address] OFFICE VISIT Date of Service: 03/23/18 MR#: [id number] Acct: [id number] Name: DIVINA LOVE Rep #: [id number] : 1970 Provider: Rj Bernabe MD Age/Sex: 48/M Location: [facility] Status: Signed [facility] Chief Complaint: Initial visit Details: DIVINA LOVE, is a 48 M who presents to the office today for an initial visit. He is a gentleman with a history of premature coronary artery disease. In 2007 he apparently had an anterior myocardial infarction was noted to have severe mid LAD stenosis and underwent balloon angioplasty. Apparently the distal vessel was small. His ejection fraction at that time was noted to be 45-50%. His circumflex artery and right coronary artery were unremarkable at that time. A year later he subsequently had an inferior myocardial infarction with posterior descending artery occlusion and underwent a angioplasty and stent placement. He apparently has done well other than some shortness of breath which she has had he has had no palpitations and no presyncopal episodes. He however feels that his blood pressure is low and is concerned about having any increase in his medications. He has not had any neck arm or jaw discomfort suggest angina no dizziness no diaphoresis no near syncope or syncope. He also has not had any claudication though in 2017 he underwent lower extremity arterial physiology study which demonstrated a resting left ankle-brachial index of 1.2 and a resting right ankle-brachial index of 1.1. His last electrocardiogram demonstrated normal sinus rhythm with a rate of 60 bpm evidence of inferior infarct as well as anterolateral infarct. His physical exam here today demonstrates clear lung hernandez regular rate and rhythm and no pedal edema his blood pressure is under good control. Intake Vital Signs03/23/18 Height 6 ft 1 in Intake Visit Reasons: PCP ref'd for CAD, has cardiac Hx Allergies aspirin [ASA] Adverse Reaction (Verified 03/23/18 14:23) Upset Stomach Medications Carvedilol [Coreg] 25 mg PO BID 06/24/15 [History Confirmed 03/23/18] Clopidogrel Bisulfate [Plavix] 75 mg PO DAILY 06/24/15 [History Confirmed 03/23/18] Rosuvastatin Calcium [Crestor] 40 mg PO DAILY 06/24/15 [History Confirmed 03/23/18] Duloxetine Hcl [Cymbalta] 60 mg PO BID 02/22/16 [History Confirmed 03/23/18] Furosemide [Lasix] 20 mg PO DAILY 02/22/16 [History Confirmed 03/23/18] Sucralfate [Carafate] 1 gm PO 4X/DAY #60 tab 02/22/16 [Rx Confirmed 03/23/18] Insulin Detemir [Levemir] 44 unit SQ BID 08/12/17 [History Confirmed 03/23/18] Pantoprazole Sodium [Protonix] 40 mg PO BID 08/12/17 [History Confirmed 03/23/18] aspirin 325 mg tablet 325 mg PO QDAY 03/07/18 [History Confirmed 03/23/18] cholecalciferol (vitamin D3) 50,000 unit capsule 50,000 unit PO QWEEK 03/07/18 [History Confirmed 03/23/18] docusate sodium 50 mg capsule 50 mg PO QDAY 03/07/18 [History Confirmed 03/23/18] nicotine 21mg/24hr-14mg/24hr-7mg/24hr daily transderm patch,sequential 1 patch TRANSDERMAL ONCE #56 patch 03/07/18 [Rx Confirmed 03/23/18] fenofibrate nanocrystallized 145 mg tablet 145 mg PO DAILY #90 tab 03/10/18 [Rx Confirmed 03/23/18] lamotrigine 100 mg tablet 100 mg PO QDAY #90 tab 03/10/18 [Rx Confirmed 03/23/18] Handicap Placard #1 ea 03/21/18 [Rx Confirmed 03/23/18] lisinopril 5 mg tablet 5 mg PO DAILY #30 tab 03/22/18 [Rx Confirmed 03/23/18] [facility] Medical History Nicotine dependence (Chronic) Type 2 diabetes mellitus with diabetic neuropathic arthropathy (Chronic) Atherosclerosis of coronary artery of [place] heart without angina pectoris (Chronic) Old myocardial infarction (Chronic) Hypertension (Chronic) CKD (chronic kidney disease) stage 2, GFR 60-89 ml/min (Chronic) Hyperlipidemia (Chronic) Morbidly obese (Chronic) COPD (chronic obstructive pulmonary disease) (Chronic) Depression (Chronic) GERD (gastroesophageal reflux disease) (Chronic) Neuropathy (Chronic) Obstructive sleep apnea (Chronic) PTSD (post-traumatic stress disorder) (Chronic) Vitamin D deficiency (Chronic) History of heart artery stent (Inactive) History of myocardial infarction (Inactive) Tobacco use (Inactive) Surgical History History of coronary artery stent placement (Chronic) History of cholecystectomy (Chronic) History of orchiectomy, unilateral (Chronic) Family History Mother Asthma Depression Hypertension Father Hypertension Depression Myocardial infarction Hyperlipemia Social History Smoking Status: Current every day smoker tobacco type: cigars alcohol intake: current alcohol intake frequency: holidays/special occasions only Alcohol type: beer substance use type: marijuana what type of physical activity do you participate in: none ROS Const Const: Negative for fatigue, weakness, difficulty sleeping, frequent falls, headache(s) or excessive sweating Eyes Eyes: Negative for loss of peripheral vision, transient loss of vision, blurry vision or double vision ENT ENT: Negative for headache(s), dizziness, Nosebleed/epistaxis or balance problems Cardio Chest Pain: Yes (Chest pain with deep breaths) Palpitations: Yes (Occasional) feels like its: fast Edema: None Muscle aches with walking: None Resp Respiratory: Positive for SOB with activity (SOB with little ambulation) and other (Diminished T/O); negative for SOB at rest, SOB orthopnea\SOB lying down or paroxysmal nocturnal dyspnea GI GI: Negative nausea or heartburn : Negative for hematuria Musc Musc: Negative for muscle aches/ myalgia, muscle weakness, joint pain or balance problems Skin Skin: Negative non-healing lesions, unusual bruising or rash Neuro Neuro: Positive for orthostatic symptoms; negative for weakness, frequent falls, blurry vision, headache(s), dizziness, lightheadedness or double vision Caesar Hematologic/Lymphatic: Negative for easy bruising Endo Endo: Negative for fatigue, excessive sweating or increased thirst/drinking Psych Psych: Negative for anxiety or depression Allergy Allergy/Immunology: Negative for hives, Negative for rash Cardiology Exam Const Appearance: cooperative, healthy appearing, well developed, well groomed and no acute distress Nutritional Appearance: well nourished and average body habitus Orientation: alert, awake and oriented x3 Head Head: normal to inspection, normocephalic and atraumatic Ears: hearing grossly normal bilaterally and external ears normal Nose: external nose normal, nasal mucous membranes and turbinates normal, nares normal, septum normal, no nasal discharge Face and Sinus: face symmetric Mouth: oral mucosae normal, tongue normal, oropharynx normal and moist mucous membranes Teeth and gingiva: dentition normal Throat: posterior oropharynx normal, tonsils normal and uvula midline Eyes General: appearance normal, both eyes and all related structures Eyelids: eyelids normal Conjunctivae: conjunctivae normal Pupils: PERRL, normal by confrontation and accommodation normal EOM: EOM intact bilaterally Neck Neck: normal visual inspection, trachea midline and no JVD JVD: +5 Carotids: normal carotid upstroke and bounding pulses Chest Chest inspection: normal inspection of the chest, symmetric chest movement and normal respiratory effort Auscultation: Bilateral: Clear to Auscultation Cardio Palpation: normal PMI Rate: regular rate Rhythm: regular rhythm Heart sounds: S1 normal, S2 normal and normal, physiologic split S2; negative rub, gallop or murmur GI GI: normal to inspection, soft, no hepatosplenomegaly and bowel sounds present Neuro General: alert, awake, oriented x3, no focal sensory deficit, gait normal and moves all extremities Skin Skin: no rashes or lesions noted Extremities Pulses: Normal: Right Femoral Pulse, Left Femoral Pulse, Right Dorsalis Pedis Pulse, Left Dorsalis Pedis Pulse, Right Posterior Tibial Pulse, Left Posterior Tibial Pulse, Right Radial Pulse, Left Radial Pulse Lower Extremity Edema: None: Bilateral Musculoskel Musculoskeletal: No joint tenderness Psych Psychological: normal affect Assessment AND Plan 1. Atherosclerosis of coronary artery of [place] heart without angina pectoris I25.10 Plan He does have a history of known coronary artery disease. At this particular time he does not have any angina he has undergone angioplasty of his left anterior descending artery as well as his distal right coronary artery my recommendation will be for us to obtain an exercise myocardial perfusion stress test on medication to see whether there is any progression of the above. In the meantime he will continue on his aspirin beta- bg as well as clopidogrel. Depending on the findings further recommendations will then be made. Risk factor modification has been emphasized to him. Orders Orders: 2. Hypertension I10 Plan His blood pressure is under good control the current medical therapy he is on the carvedilol and low-dose Lasix as well as the JESUS inhibitor. I would not recommend that we increase any of the medications at this particular time we can continue to follow him closely. 3. Hyperlipidemia E78.5 Plan He does have a history of hyperlipidemia and currently remains on the high intensity statin. We will continue to monitor the above with routine liver function tests as well as lipid tests. 4. Left ventricular dysfunction I51.9 Plan He does have mild left ventricular systolic dysfunction without any heart failure symptoms my recommendation is for him to remain on the same medications with a beta-bg JESUS inhibitor an echocardiogram should be performed to reassess his left ventricular function. Depending on the findings further recommendations will then be made. Orders Orders: Plan Detail Follow Up 6 Months (jhr) Coding Level of Care Code Off vis,new,level 4 Diagnoses Atherosclerosis of coronary artery of [place] heart without angina pectoris I25.10 Hypertension I10 Hyperlipidemia E78.5 Left ventricular dysfunction I51.9 Coding Level of Care Code Off vis,new,level 4 Diagnoses Atherosclerosis of coronary artery of [place] heart without angina pectoris I25.10 Hypertension I10 Hyperlipidemia E78.5 Left ventricular dysfunction I51.9 03/23/18 1501 <Electronically signed by Rj Bernabe MD> Date Rj Bernabe MD Cosigner Signature: Date (if applicable) CC: Mariaa Molina MD COMPREHENSIVE METABOLIC Collected: 03/21/2018 Status: F Source: [place] MENESES 9:22 AM [facility] Order Comment: Comments: Fasting Comments: Fasting Comments: Fasting TYPE CODE TESTS RESULT OUT OF RANGE REFERENCE UNITS LAB L501.0100 74-106 mg/dL High GLU 147 Result Comment: Fasting Glucose result greater than or equal to 126 mg/dL suggests DIABETES MELLITUS per A.D.A. criteria. Please note revised GLUCOSE reference range effective 2017. LAB L501.1000 7-18 mg/dL High BUN 37 LAB L501.1100 0.70-1.30 mg/dL High CREAT,SERUM 2.07 Result Comment: The validity of the calculated GFR AND GFRAA in patients over 70 years has not been determined. Clinical correlation is essential. LAB L501.1110 >60 mL/min Low EST GFR 37 Result Comment: Non- GFR Calc LAB L501.1115 >60 mL/min Low EST GFR - AA 44 Result Comment: GFR Calc LAB L501.1300 10-20 RATIO Normal BUN/CRE 17.9 LAB L501.1500 6.4-8.2 g/dL T Normal PROT 7.3 LAB L501.1800 3.2-5.0 g/dL Normal ALB 3.4 LAB L501.1950 2.2-4.2 g/dL Normal GLOB 3.9 LAB L501.2000 0.9-2.4 RATIO Normal A/G 0.9 LAB L501.2200 8.5-10.1 mg/dL CA Normal 9.3 LAB L501.4100 15-37 U/L Low AST 11 LAB L501.4305 45-117 U/L Normal ALK P 45 LAB L501.4405 16-61 U/L Low ALT 13 LAB L501.4600 0.20-1.00 mg/dL T Normal BILI 0.50 LAB L501.5300 136-145 mmol/L NA Normal 140 LAB L501.5600 3.5-5.1 mmol/L K Normal 4.8 LAB L501.5900 98-107 mmol/L High CL 108 LAB L501.6100 21.0-32.0 mmol/L Normal CO2 28.0 LAB L501.6200 5-15 Low GAP 4 Performed By: #### L500.4050, L500.4100, L501.9985 #### [facility] [address] [place], [address] LIPID PROFILE Collected: 03/21/2018 Status: F Source: [place] 9:22 AM [facility] Order Comment: Comments: Fasting Comments: Fasting Comments: Fasting TYPE CODE TESTS RESULT OUT OF RANGE REFERENCE UNITS LAB L501.4900 200 mg/dL Normal CHOL 123 Result Comment: <200 mg/dL Desirable 200-240 mg/dL Borderline >240 mg/dL High Risk LAB L501.5000 mg/dL Normal TRIG 185 Result Comment: The drugs N-Acetylcysteine and Metamizole may falsely depress this assay. Serum Triglycerides Reference Interval Normal <150 mg/dL Borderline high 150 - 199 mg/dL High 200 - 499 mg/dL Very High > or = 500 mg/dL LAB L501.6400 mg/dL Low HDL 25 Result Comment: The drugs N-Acetylcysteine and Metamizole may falsely depress this assay. Reference Range HDL <40 mg/dL Low HDL Cholesterol HDL >or= 60 mg/dL High HDL Cholesterol LAB L501.6500 0-130 mg/dL Normal LDL 61 LAB L501.6600 5-40 mg/dL Normal VLDL 37 Performed By: #### L500.4050, L500.4100, L501.9985 #### [facility] [address] [place], [address] HEMOGLOBIN A1C Collected: 03/21/2018 Status: F Source: [place] 9:22 AM [facility] Order Comment: Comments: Fasting Comments: Fasting TYPE CODE TESTS RESULT OUT OF RANGE REFERENCE UNITS LAB L501.9985 4.2-6.3 % High HGB A1C 8.2 Performed By: #### L500.4050, L500.4100, L501.9985 #### [facility] [address] [place], [address] MICROALB:CREAT Collected: 03/21/2018 Status: F Source: SIVA RATIO,RANDOM UR 9:22 AM [facility] TYPE CODE TESTS RESULT OUT OF RANGE REFERENCE UNITS LAB L501.1200 NO RANGE EST. mg/dL Normal UR CREAT 115.00 LAB L502.0500 NO RANGE EST. mg/L Normal 568.0 MICROALBUMIN ,UR LAB L502.0600 <30 mg/g CRE mg/g CRE High 493.9 MALB:CREAT Performed By: #### L502.0250 #### [facility] [address] [facility] [place], [address] PROGRESS Observed: 01/24/2018 Status: COMPLETED Source: [place] 10:[address] [facility] RE[facility] HNO ID: [id number] Author: Kailey Cummings Service: (none) Author Type: Physician Type: Progress Notes Filed: 01/24/2018 10:55 AM Note Text: Patient had to be asked to leave and asked security to walk him out. Has a hx of being belligerent with other patients, and every staff member in office including myself. People in other locations in the building were even able to hear him screaming. We will contact [place] to ensure it does not occur again. CNOV Observed: 01/24/2018 Status: COMPLETED Source: [place] 10:[address] [facility] REPOS[facility] Office Visit (FAMPWS) DIVINA LOVE ([id number]) 1970 M Date Time Provider Department 01/24/18 10:00 AM KAILEY CUMMINGS During your visit today, we recorded the following information about you: Kailey Cummings MD 01/24/2018 10:55 AM Signed Patient had to be asked to leave and asked security to walk him out. Has a hx of being belligerent with other patients, and every staff member in office including myself. People in other locations in the building were even able to hear him screaming. [place] ensure it does not occur again. Akiko Pan Ma 01/24/2018 11:17 AM Signed Patient became agitated and upset due to appointment wait time during open access hours. He approached the window and loudly expressed him being upset that he had to wait 45 minutes. He said that no one took his name to know that he was here. I told him that we did know he was here from his check in status. Then he said he was approached by a nurse when he first walked in and was told to have a seat and it would be a few minutes. He then said he has never had to wait for 45 minutes. I told him with open access, we can never guarantee how long the wait is and that today was a busy day. He then started to talk to the patients in the waiting room, expressing his upset that he had to wait this long. I went to clean an room, stepped out to get the next patient, who he was talking to, and noticed she was gone. I made mention ANDquot;oh I guess she leftANDquot;. He then yelled at me, ANDquot;I don't knowANDquot;. He was visibly upset and agitated. I approached him to try to explain open access again to him, and voice that I understood his concerns. He became upset And said I was yelling at him and that I just came out of the room and started yelling at him. He told me to get away from him so I said ok, that's fine. At the time Bradford Cisneros came out of the room and asked if there was a problem and if I needed help. I told him no. At that moment my patient came back and I took the other patient back to room her. Akiko Pan Ma Referring Provider: SELF [200] Allergies As of Date: 01/24/2018 Noted Allergy Reaction ASA (ASPIRIN) 04/10/2015 14 - Other: See Comments Comments: Extreme abd pain Tolerates coated ASA unable to take 81 mg ASA WELLBUTRIN (BUPROPION) 03/15/2017 5 - Intolerance Comments: Made him angry/ mean Date Reviewed: 09/14/2017 Reviewed by: Priscilla Musa RN - Fully Assessed Primary Visit Diagnosis:Disruptive behavior [F91.9] Prescriptions as of 01/24/2018 Sig: DULOXETINE 60 MG CAPSULE,ADAM* TAKE 1 CAPSULE BY MOUTH TWICE* CHOLECALCIFEROL (VITAMIN D3) * TAKE 1 CAPSULE BY MOUTH ONCE * ROSUVASTATIN 40 MG TABLET TAKE 1 TABLET BY MOUTH DAILY CARVEDILOL 25 MG TABLET TAKE 1 TABLET BY MOUTH TWICE * SUCRALFATE 1 GRAM TABLET TAKE 1 TABLET BY MOUTH BEFORE* LEVEMIR U-100 INSULIN 100 UNI* INJECT 43 UNITS SUBCUTANEOUSL* FENOFIBRATE NANOCRYSTALLIZED * TAKE 1 TABLET BY MOUTH DAILY LAMOTRIGINE 100 MG TABLET TAKE 1 TABLET BY MOUTH DAILY NYSTATIN 100,000 UNIT/GRAM TO* Apply 1 application to affect* LISINOPRIL 2.5 MG TABLET Take one twice a day CLOPIDOGREL 75 MG TABLET TAKE 1 TABLET BY MOUTH DAILY PANTOPRAZOLE 40 MG TABLET,DEL* Take 1 tablet by mouth twice * FUROSEMIDE 20 MG TABLET Take 1 tablet by mouth once d* COMPRESSION STOCKING, KNEE HI* Use as directed INSULIN LISPRO (U-100) 100 UN* Inject 32 Units subcutaneousl* INSULIN SYRINGE-NEEDLE U-100 * Use to inject insulin 4 times* COMPOUNDED PRESCRIPTION Initiate CPAP @ 12 cm of wate* DOCUSATE SODIUM 100 MG CAPSULE Take 100 mg by mouth once uzma* ASPIRIN 325 MG TABLET Take 325 mg by mouth once uzma* Problem List As Of Date 01/24/2018 Noted Resolved Major depressive disorder with single episode, *INVALID FOR* More... Neuropathy (HCC) [G62.9] INVALID FOR* More... Sleep apnea [G47.30] INVALID FOR* More... Nephropathy [N28.9] INVALID FOR*06/23/2017 Type 2 diabetes, uncontrolled, with neuropathy *INVALID FOR* S/P coronary angioplasty [Z98.61] INVALID FOR* Presence of drug coated stent in right coronary*INVALID FOR* LV dysfunction [I51.9] INVALID FOR* Hyperlipidemia [E78.5] INVALID FOR* Family history of ischemic heart disease [Z82.4*INVALID FOR* Tobacco abuse [Z72.0] INVALID FOR* Obesity [E66.9] INVALID FOR* Secondary hyperparathyroidism (of renal origin)*INVALID FOR*06/23/2017 Recurrent major depression in partial remission*INVALID FOR* Vitamin D deficiency [E55.9] INVALID FOR* More... 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 He approached the window and loudly expressed him being upset that he had to wait 45 minutes. He said that no one took his name to know that he was here. I told him that we did know he was here from his check in status. Then he said he was approached by a nurse when he first walked in and was told to have a seat and it would be a few minutes. He then said he has never had to wait for 45 minutes. I told him with open access, we can never guarantee how long the wait is and that today was a busy day. He then started to talk to the patients in the waiting room, expressing his upset that he had to wait this long. I went to clean an room, stepped out to get the next patient, who he was talking to, and noticed she was gone. I made mention oh I guess she left. He then yelled at me, I don't know. He was visibly upset and agitated. I approached him to try to explain open access again to him, and voice that I understood his concerns. He became upset And said I was yelling at him and that I just came out of the room and started yelling at him. He told me to get away from him so I said ok, that's fine. At the time Bradford Cisneros came out of the room and asked if there was a problem and if I needed help. I told him no. At that moment my patient came back and I took the other patient back to room her. Akiko Pan Ma Encounter Status:Closed by KAILEY CUMMINGS MD on 01/24/18 ALLERGIES ALLERGIES DATE TYPE / CODE NAME / CODE REACTION SEVERITY SOURCE 11/22/2018 Drug No Known Unknown [place] Allergy/416 Allergies/[id number] [facility] 585397([facility] 0388([facility] ED CT) Repository 05/28/2018 Drug aspirin/[id number] Upset Stomach Unknown [place] Allergy/416 87(RXNORM) [facility] 458761([facility] ED CT) Repository 03/15/2017 DRUG BUPROPION INTOLERANCE [address] 643481([facility] Repository ED CT) 04/10/2015 DRUG ASPIRIN OTHER: SEE C [address] 667889([facility] Repository ED CT) ENCOUNTERS ENCOUNTERS ADMIT/DISCHARGE ACCOUNT ADMITTING ENCOUNTER LOCATION SOURCE NUMBER CLASS 11/29/2018 [id number] [facility] ing:LAB Repository 11/22/2018/11/22/19 [id number] Ambulatory BMSBuilding:B [place] 19 [place].[facility] Repository 11/21/2018/11/21/19 [id number] Ambulatory BMSBuilding:B [place] [facility] MS.Critical access hospital Repository 09/21/2018 [id number] Ambulatory BMSBuilding:B [place] MS.[facility] Repository 09/15/2018/09/15/20 [id number] Ambulatory BMSBuilding:B [place] 18 MS.CF.Critical access hospital Repository 09/15/2018/09/15/[id number] ing:EN Repository 08/23/2018 [id number] Ambulatory [facility] ing:LAB Repository 08/22/2018/08/22/20 [id number] Ambulatory BMSBuilding:B [place] 18 MS.[facility] Repository 07/26/2018 [id number] Ambulatory [facility] Hospital ing:PSN Repository 07/22/2018 [id number] Ambulatory BMSBuilding:B [place].[facility] Repository 07/06/2018 [id number] Ambulatory BMSBuilding:B [place] MS.CF.Critical access hospital Repository 07/06/2018/07/06/20 [id number] Ambulatory [address] Hospital ing:EN Repository 06/23/2018 [id number] Ambulatory BMSBuilding:B [place] MS.[facility] Repository 06/21/2018/06/21/20 [id number] Ambulatory BMSBuilding:B [place] 18 MS.[facility] Repository 06/10/2018/06/10/20 [id number] Ambulatory BMSBuilding:B [place] 18 MS.Critical access hospital Repository 06/06/2018/06/06/20 [id number] Ambulatory BMSBuilding:B [place] 18 MS.[facility] Repository 05/28/2018/05/28/20 [id number] Emergency [address] Hospital ing:ED Repository 05/28/2018/05/28/20 [id number] Emergency [address] Hospital ing:ED Repository 03/23/2018/03/23/20 [id number] Ambulatory BMSBuilding:B [place] 18 MS.[facility] Repository 03/23/2018 [id number] Ambulatory BMSBuilding:B [place] MS.[facility] Repository 03/21/2018 [id number] Ambulatory [facility] Hospital ing:LAB Repository 03/07/2018/03/07/20 [id number] Ambulatory BMSBuilding:B [place] 18 MS.Pending sale to [facility] Repository 01/24/2018/01/26/20 [id number] Ambulatory [address] Repository PAYERS PAYERS ENCOUNTER GUARANTOR PAYER SUBSCRIBER SOURCE 11/29/2018 DIVINA [id number] Insurance:MEDICARE MCCLANAHANDOB: [facility] PART A [facility] [id number] Number: Repository [address]Doz: 330 [id number] () Date:2018-11-29 11/29/2018 Secondary NOT GIVENUNK [place] Insurance:SELF PAY [facility] Number: Effective Repository Date:2018-11-29 11/22/2018 DIVINA B Primary DIVINA B [place] [id number] Insurance:MEDICARE MCCLANAHANDOB: [facility] PART A [facility] [id number] Number: Repository [id number]: 330 [id number] () Date:2018-08-22 11/22/2018 Secondary NOT GIVENUNK [place] Insurance:SELF PAY [facility] Number: Effective Repository Date:2018-11-10 11/21/2018 DIVINA B Primary DIVINA B [place] [id number] Insurance:MEDICARE MCCLANAHANDOB: [facility] PART A [facility] [id number] Number: Repository [address]Jfn: 330 [id number] () Date:2018-11-17 11/21/2018 Secondary NOT GIVENUNK [place] Insurance:SELF PAY [facility] Number: Effective Repository Date:2018-11-18 09/21/2018 DIVINA B Primary DIVINA B [place] [id number] Insurance:MEDICARE MCCLANAHANDOB: [facility] PART A [id number] Number: Repository [address] [place] [address] [id number]: (330) Date:2018-03-23 () 09/21/2018 Secondary NOT GIVENUNK [place] Insurance:SELF PAY [facility] Number: Effective Repository Date:2018-03-23 09/15/2018 DIVINA B Primary DIVINA B [place] [id number] Insurance:MEDICARE MCCLANAHANDOB: [facility] [id number] Number: Repository [address]Tpm: 330 [id number] [phone] () Date:2018-07-19 09/15/2018 Secondary NOT GIVENUNK [place] Insurance:SELF PAY [facility] Number: Effective Repository Date:2018-09-15 09/15/2018 DIVINA B Primary DIVINA B [place] [id number] Insurance:[facility]: [facility] [id number] Number: Repository [address]Kfd: 330 [id number] [phone] () Date:2018-07-19 09/15/2018 Secondary NOT GIVENUNK [place] Insurance:SELF PAY [facility] Number: Effective Repository Date:2018-07-19 08/23/2018 DIVINA B Primary DIVINA B [place] [id number] Insurance:[facility]ARE [facility]: [facility] [id number] Number: Repository [address]Sod: 330 [id number] [phone] () Date:2018-08-23 08/23/2018 Secondary NOT GIVENUNK [place] Insurance:SELF PAY [facility] Number: Effective Repository Date:2018-08-23 08/22/2018 DIVINA B Primary DIVINA B [place] [id number] Insurance:MEDICARE [facility] WAY[facility]OB: [facility] [id number] Number: Repository [address]Nbn: 330 [id number] [phone] () Date:2018-08-12 08/22/2018 Secondary NOT GIVENUNK [place] Insurance:SELF PAY [facility] Number: Effective Repository Date:2018-08-18 07/26/2018 DIVINA B Primary DIVINA B [place] [id number] Insurance:[facility]ICARE [facility]: [facility] [id number] Number: Repository [address]Iyg: 330 [id number] [phone] () Date:2018-06-21 07/26/2018 Secondary NOT GIVENUNK [place] Insurance:SELF PAY [facility] Number: Effective Repository Date:2018-06-21 07/22/2018 DIVINA B Primary DIVINA B [place] [id number] Insurance:MEDICARE [facility]: [facility] [id number] Number: Repository [address]Qcy: 330 [id number] [phone] () Date:2018-06-21 07/22/2018 Secondary NOT GIVENUNK [place] Insurance:SELF PAY [facility] Number: Effective Repository Date:2018-06-21 07/06/2018 DIVINA B Primary DIVINA B [place] [id number] Insurance:[facility]: [facility] [id number] Number: Repository [address]Dcg: 330 [id number] [phone] () Date:2018-06-10 07/06/2018 Secondary NOT GIVENUNK [place] Insurance:SELF PAY [facility] Number: Effective Repository Date:2018-07-06 07/06/2018 DIVINA B Primary DIVINA B [place] [id number] Insurance:[facility]ICARE [facility]: [facility] [id number] Number: Repository [address]Dmv: 330 [id number] [phone] () Date:2018-06-10 07/06/2018 Secondary NOT GIVENUNK [place] Insurance:SELF PAY [facility] Number: Effective Repository Date:2018-06-10 06/23/2018 DIVINA B Primary DIVINA B [place] [id number] Insurance:MEDICARE MCCLANAHANDOB: [facility] [id number] [facility] Number: Repository [address] [place] [address] [id number]: (330) Date:2018-06-23 [phone] () 06/23/2018 Secondary NOT GIVENUNK [place] Insurance:SELF PAY [facility] Number: Effective Repository Date:2018-06-23 06/21/2018 DIVINA B Primary DIVINA B [place] [id number] Insurance:MEDICARE [facility]: [facility] PART A [facility] [id number] [address] Number: Repository [address] [place], [place] [id number]: (330) Date:2018-06-06 () 06/21/2018 Secondary NOT GIVENUNK [place] Insurance:SELF PAY [facility] Number: Effective Repository Date:2018-06-20 06/10/2018 DIVINA B Primary DIVINA B [place] [id number] Insurance:MEDICARE [facility]: [facility] PART A [facility] [id number] [address] Number: Repository [address] [place], [place] [id number]: (330) Date:2018-06-06 () 06/10/2018 Secondary NOT GIVENUNK [place] Insurance:SELF PAY [facility] Number: Effective Repository Date:2018-06-10 06/06/2018 DIVINA B Primary DIVINA B [place] [id number] Insurance:[facility]IC[facility]: [facility] [id number] [address] Number: Repository [address] [place], [place] [id number]: (330) Date:2018-03-07 () 06/06/2018 Secondary NOT GIVENUNK [place] Insurance:SELF PAY [facility] Number: Effective Repository Date:2018-06-06 05/28/2018 DIVINA B Primary DIVINA B [place] [id number] Insurance:[facility]: [facility] [id number] [address] Number: Repository [address] [place], [place] [id number]: (330) Date:2018-05-28 () 05/28/2018 Secondary NOT GIVENUNK [place] Insurance:SELF PAY [facility] Number: Effective Repository Date:2018-05-28 05/28/2018 DIVINA B Primary DIVINA B [place] [id number] Insurance:MEDICARE MCCLANAHANDOB: [facility] PART A [facility] [id number] Number: Repository [address] [place] [address] [id number]: (330) Date:2018-05-28 [phone] () 05/28/2018 Secondary NOT GIVENUNK [place] Insurance:SELF PAY [facility] Number: Effective Repository Date:2018-05-28 03/23/2018 DIVINA B Primary DIVINA B [place] [id number] Insurance:MEDICARE MCCLANAHANDOB: [facility] PART A [facility] [id number] General Hospital Number: Repository [address] [place] [address] [id number]: (330) Date:2018-03-07 [phone] () 03/23/2018 Secondary NOT GIVENUNK [place] Insurance:SELF PAY [facility] Number: Effective Repository Date:2018-03-23 03/23/2018 DIVINA B Primary DIVINA B [place] [id number] Insurance:MEDICARE MCCLANAHANDOB: [facility] PART A [facility] [id number] Number: Repository [address]Uwx: (330 [id number] [phone] () Date:2018-03-23 03/23/2018 Secondary NOT GIVENUNK [place] Insurance:SELF PAY [facility] Number: Effective Repository Date:2018-03-23 03/21/2018 DIVINA B Primary DIVINA B [place] [id number] Insurance:MEDICARE MCCLANAHANDOB: [facility] PART A [facility] [id number] Number: Repository [address]Fig: 330 [id number] [phone] () Date:2018-03-21 03/21/2018 Secondary NOT GIVENUNK [place] Insurance:SELF PAY [facility] Number: Effective Repository Date:2018-03-21 03/07/2018 DIVINA B Primary DIVINA B [place] [id number] Insurance:MEDICARE MCCLANAHANDOB: [facility] PART A BPolicy [id number] Number: Repository [address]Sfa: (331) [id number] [phone] () Date:2018-02-10 03/07/2018 Secondary NOT GIVENUNK [place] Insurance:SELF PAY [facility] Number: Effective Repository Date:2018-03-07
== END ==
PROVIDERS: Family Provider Internal Medicine; PCP Internal Medicine; Referring Provider Internal Medicine; Visit Provider Internal Medicine
DX: E11.610 Type 2 diabetes mellitus with diabetic neuropathic arthropathy (principal); E11.22 Type 2 diabetes mellitus with diabetic chronic kidney disease; N18.3 Chronic kidney disease, stage 3 (moderate); E78.5 Hyperlipidemia, unspecified
CPT/HCPCS: 36415; 80053; 80061; 82043; 82570; 85025

== ENCOUNTER 2019-01-27 10:45 | Emergency (ER) | payer MEDICARE, SELFPAY ==
[2018-11-22 11:06] VITALS: BMI 41.6
[2019-01-27 10:46] VITALS: BP 153/75; PULSE 64; RESP 18; TEMP 36.1; O2SAT 93; BMI 40.2
[2019-01-27] MEDS: HYDROmorphone 1 MG/ML Syringe IV (11:17)
[2019-01-27] MEDS: 0.9% Normal Saline 1,000 ML 1000 ML IV (11:17)
[2019-01-27] MEDS: Ondansetron 4 MG/2 ML Vial IV (11:17)
[2019-01-27 11:28] LABS: Absolute Lymphocyte Count 3.45 X10^3/ul (0.83-4.51); Absolute Neutrophil Count 6.1 X10^3/uL (2.0-7.7); Basophil# 0.02 X10^3/uL; Basophil% 0.2 % (0-1); Eosinophil# 0.25 X10^3/uL; Eosinophils% 2.3 % (0-5); Hematocrit 43.2 % (40-54); Hemoglobin 13.8 g/dl (13.0-16.5); Lymphocyte # 3.45 X10^3/ul (4.0); Lymphocyte % 31.7 % (19-41); Mean Corp Hgb Conc 31.9 g/gl (32-36); Mean Corpuscular Hgb 27.6 pg (27.0-32.0); Mean Corpuscular Volume 86.4 fL (80-94); Mean Platelet Vol. 10.4 fl (6.2-12.0); Monocyte# 1.01 X10^3/uL; Monocyte% 9.3 % (0-10); Neutrophil # 6.13 X10^3/uL (2.7-7.7); Neutrophil % 56.3 % (47-70); Platelet Count 274 K/mm3 (150-450); RBC Distribution Width CV 16.5 % (11.6-14.6); White Blood Count 10.9 K/mm3 (4.4-11.0)
[2019-01-27 11:29] LABS: POSITIVE COUNT NO; POSITIVE DIFFERENTIAL NO; POSITIVE MORPHOLOGY NO
[2019-01-27 11:37] LABS: AST(SGOT) 14 U/L (15-37); Alanine Aminotransfer ALT/SGPT 16 U/L (16-61); Albumin, Serum 3.1 g/dL (3.2-5.0); Alkaline Phosphatase 60 U/L (45-117); Anion Gap 4 (5-15); BUN 19 mg/dL (7-18); BUN/Creat Ratio 10.6 RATIO (10-20); Bilirubin, Direct 0.19 mg/dL (0.00-0.30); Calcium,Total 9.2 mg/dL (8.5-10.1); Chloride 104 mmol/L (98-107); Creatinine, Serum 1.79 mg/dL (0.70-1.30); EST Glomerular Filtration Rate 43 mL/min (>60); Est Glom Filt Rate - Afr Amer 52 mL/min (>60); Estimated Creatinine Clearance 56.42 ml/min; Globulin 4.6 g/dL (2.2-4.2); Glucose 184 mg/dL (74-106); Lipase 126 U/L (73-393); Potassium 3.9 mmol/L (3.5-5.1); Protein, Total 7.7 g/dL (6.4-8.2); Sodium Level 138 mmol/L (136-145)
[2019-01-27] MEDS: Mag Hydrox/Al Hydrox/Simeth 30 ML UDC PO (12:47)
[2019-01-27] MEDS: proMETHazine 25 MG/ML Syringe 12.5 MG IV (12:47)
--- NOTE | 2019-01-27 13:54 | ED.DCSUM_ITS ---
- ER Visit Summary Date of Service: 01/27/19 Chief Complaint: Abdominal pain History of Present Illness: The patient is a 48 M with history of significant gastritis and nutcracker esophagus. Patient states he got cold-like symptoms about 10 days ago. He was unable to eat and that worsen his chronic gastritis. He is been taking Protonix and Carafate without improvement. Physical Examination: Vital signs significant for blood pressure of 153/75, otherwise unremarkable. Patient sitting upright in bed. He appears uncomfortable but no distress. Heart is regular rate and rhythm. Lung sounds are clear. Abdomen is soft with focal tenderness in the epigastrium. No guarding or peter ound. Hypoactive bowel sounds are present. Test Results: CBC is unremarkable. Chemistry studies reveal glucose of 24. BUN is 19 and creatinine is 1.79. He is a chronic history of renal insufficiency. LFTs and lipase are normal. Emergency Department Course and Treatment: Patient presented for similar symptoms last summer. That evaluation and treatment was reviewed. Patient received 1 mg of Dilaudid, Zofran, IV fluids, and IV Protonix. On repeat evaluation he reported recurrent nausea and a slight burning sensation in the e pigastrium. He was given Phenergan and a GI cocktail. At this time patient feels significantly improved. I did do an oars report. His last narcotic was in May 2018. He will be given a few tabs of Percocet along with Zofran if needed. He will continue his Carafate and Protonix. Treatment Plan: [] Disposition: Discharge Impression: Gastritis This note was generated with [employer] dictation software. It may contain incorrect words, spelling, and punctuation that were not noted in review of the chart prior to signing ED Disposition - Plan for ED Patient: Referrals: Mariaa Molina MD [Primary Care Provider] -
--- NOTE | 2019-01-27 13:54 | ED.DEP ---
ED Disposition - Plan for ED Patient: Disposition: Home or Assisted Living Instructions: ED Gastritis Prescriptions: Ondansetron [Zofran Odt] 4 mg PO Q8H PRN PRN #10 tablet PRN Reason: Nausea Referrals: Mariaa Molina MD [Primary Care Provider] - 1 Week if not improving
--- NOTE | 2019-01-27 14:01 | DCINST.ED_ITS ---
ED Disposition - Plan for ED Patient: Disposition: Home or Assisted Living Instructions: ED Gastritis Prescriptions: Hydrocodone Bitart/Apap 5-325 [[place] 5MG-325MG] 1 tablet PO Q6H PRN PRN 3 Days #10 tablet PRN Reason: Pain Ondansetron [Zofran Odt] 4 mg PO Q8H PRN PRN #10 tablet PRN Reason: Nausea Referrals: Mariaa Molina MD [Primary Care Provider] - 1 Week if not improving
[2019-01-27 14:16] VITALS: BP 143/71; PULSE 57; RESP 18; O2SAT 93
== END 2019-01-27 14:17 | disposition home or self-care (01) ==
PROVIDERS: Emergency Provider Emergency Medicine; Family Provider Internal Medicine; PCP Internal Medicine
DX: K29.70 Gastritis, unspecified, without bleeding (principal); I12.9 Hypertensive chronic kidney disease with stage 1 through stage 4 chronic kidney disease, or unspecified chronic kidney disease; E11.22 Type 2 diabetes mellitus with diabetic chronic kidney disease; N18.9 Chronic kidney disease, unspecified; I25.10 Atherosclerotic heart disease of native coronary artery without angina pectoris; I25.2 Old myocardial infarction; J44.9 Chronic obstructive pulmonary disease, unspecified; Z95.5 Presence of coronary angioplasty implant and graft; Z79.4 Long term (current) use of insulin; Z79.82 Long term (current) use of aspirin; Z79.899 Other long term (current) drug therapy; Z72.0 Tobacco use
CPT/HCPCS: 80048; 80076; 83690; 85025; 96365; 96375; 99283; J7030; A4216; J2405

== ENCOUNTER → 2019-02-21 10:23 | Outpatient (CLI) | payer MEDICARE, SELFPAY ==
[2019-02-21 09:35] VITALS: BMI 40.2
== END ==
PROVIDERS: Family Provider Internal Medicine; PCP Internal Medicine; Visit Provider Nurse Practitioner Family
DX: R80.9 Proteinuria, unspecified (principal)
CPT/HCPCS: 82043; 82570

== ENCOUNTER → 2019-03-28 10:37 | Outpatient (CLI) | payer MEDICARE, SELFPAY ==
[2019-02-21 09:35] VITALS: BMI 40.2
--- NOTE | 2019-03-28 10:42 | NM_ITS ---
CLINICAL: 49-year-old male with reported history of chronic nausea. SEMI-SOLID PHASE 99m Tc SULFUR COLLOID GASTRIC EMPTYING STUDY COMPARISON: None available FINDINGS: The patient was administered 1.1 mCi of 99m Tc sulfur colloid mixed with oatmeal and consumed per os. Image acquisitions in the anterior-posterior projectionS were obtained for a total of 60 minutes. There is prompt visualization of the stomach. There is no gastroesophageal reflux identified. First order kinetics are maintained throughout the duration of the acquisitions. The T1/2 linear fit was calculated to be 61.38 minutes, (Normal: 12-56 minutes). NM/Gastric Emptying Study IMPRESSION: 1. MILDLY ABNORMAL 99m Tc sulfur colloid semi-solid phase (oatmeal) gastric emptying imaging examination. A. There is mild delayed semi-solid phase gastric emptying compared to normal controls with maintained first order kinetics throughout all components of the examination. (Skye cochran al, J Nucl Med Tech 38: 186, 2010). Electronically Signed: Richie Luu DO at 23:38 EDT Tel , Service support ,
== END ==
LOC: NM 10:39
PROVIDERS: Family Provider Internal Medicine; PCP Internal Medicine; Referring Provider Internal Medicine Gastroenterology; Visit Provider Internal Medicine Gastroenterology
DX: R11.0 Nausea (principal); E11.9 Type 2 diabetes mellitus without complications
CPT/HCPCS: 78264; A9541

== ENCOUNTER → 2019-05-23 11:07 | Outpatient (CLI) | payer MEDICARE, SELFPAY ==
[2019-05-23 08:48] VITALS: BMI 40.2
[2019-05-23 13:42] LABS: Microalbumin:Creatinine Ratio 434.6 mg/g CRE (<30 mg/g CRE)
== END ==
PROVIDERS: Family Provider Internal Medicine; PCP Internal Medicine; Visit Provider Internal Medicine
DX: E11.610 Type 2 diabetes mellitus with diabetic neuropathic arthropathy (principal); E11.22 Type 2 diabetes mellitus with diabetic chronic kidney disease; N18.3 Chronic kidney disease, stage 3 (moderate)
CPT/HCPCS: 82043; 82570

== ENCOUNTER → 2019-08-23 09:34 | Outpatient (CLI) | payer MEDICARE, SELFPAY ==
[2019-08-23 09:07] VITALS: BMI 40.2
[2019-08-23 12:45] LABS: Hematocrit 40.9 % (40-54); Hemoglobin 12.8 g/dL (13.0-16.5); Mean Corp Hgb Conc 31.3 g/dL (32-36); Mean Corpuscular Hgb 28.3 pg (27.0-32.0); Mean Corpuscular Volume 90.3 fL (80-94); Mean Platelet Vol. 11.2 fl (6.2-12.0); Platelet Count 237 K/mm3 (150-450); RBC Distribution Width CV 17.7 % (11.6-14.6); RBC Distribution Width SD 58.5 fl (35.1-43.9); Red Blood Count 4.53 M/mm3 (4.6-6.2); White Blood Count 8.3 K/mm3 (4.4-11.0)
[2019-08-23 13:11] LABS: Anion Gap 5 (5-15); BUN 36 mg/dL (7-18); BUN/Creat Ratio 16.6 RATIO (10-20); Calcium,Total 8.5 mg/dL (8.5-10.1); Chloride 106 mmol/L (98-107); Cholesterol 111 mg/dL (200); Creatinine, Serum 2.17 mg/dL (0.70-1.30); EST Glomerular Filtration Rate 34 mL/min (>60); Est Glom Filt Rate - Afr Amer 42 mL/min (>60); Glucose 134 mg/dL (74-106); High Density Lipoprotein 22 mg/dL; Potassium 4.6 mmol/L (3.5-5.1); Sodium Level 139 mmol/L (136-145); Thyroid Stim Hormone (TSH) 0.98 uIU/mL (0.358-3.74); Triglycerides 179 mg/dL; Very Low Density Lipoprotein 36 mg/dL (5-40)
[2019-08-23 13:46] LABS: Microalbumin:Creatinine Ratio 437.6 mg/g CRE (<30 mg/g CRE)
== END ==
PROVIDERS: Family Provider Internal Medicine; PCP Internal Medicine; Visit Provider Nurse Practitioner Family
DX: E11.610 Type 2 diabetes mellitus with diabetic neuropathic arthropathy (principal); I10 Essential (primary) hypertension; R10.13 Epigastric pain
CPT/HCPCS: 36415; 80048; 80061; 82043; 82570; 84443; 85027

== ENCOUNTER 2019-10-16 17:30 | Emergency (ER) | payer MEDICARE, SELFPAY ==
[2019-08-23 09:07] VITALS: BMI 40.2
[2019-10-16 17:37] VITALS: BP 182/70; PULSE 58; RESP 18; TEMP 36.8; O2SAT 99; BMI 41.0
--- NOTE | 2019-10-16 17:57 | EKG12_ITS ---
Test Reason : CP Blood Pressure : / mmHG Vent. Rate : 055 BPM Atrial Rate : 055 BPM P-R Int : 182 ms QRS Dur : 094 ms QT Int : 460 ms P-R-T Axes : 034 041 043 degrees QTc Int : 440 ms Sinus bradycardia Possible Inferior infarct , age undetermined Anterolateral infarct , age undetermined Abnormal ECG Confirmed by TRE COHEN, TITI ([id number]), legal editor ROGER NICHOLE ([id number]) on 10/18/2019 11:46:46 AM Referred By: PORFIRIO Confirmed By:TITI TOLEDO MD
[2019-10-16] MEDS: Ondansetron 4 MG/2 ML Vial IV (18:06)
[2019-10-16] MEDS: 0.9% Normal Saline 1,000 ML 1000 ML IV (18:06)
[2019-10-16] MEDS: Mag Hydrox/Al Hydrox/Simeth 30 ML UDC PO (18:06)
[2019-10-16 18:20] LABS: Absolute Lymphocyte Count 3.13 X10^3/uL (0.83-4.51); Absolute Neutrophil Count 8.8 X10^3/uL (2.0-7.7); Basophil# 0.04 X10^3/uL; Basophil% 0.3 % (0-1); Eosinophil# 0.04 X10^3/uL; Eosinophils% 0.3 % (0-5); Hematocrit 46.1 % (40-54); Hemoglobin 14.9 g/dL (13.0-16.5); Lymphocyte # 3.13 X10^3/ul (4.0); Lymphocyte % 24.6 % (19-41); Mean Corp Hgb Conc 32.3 g/dL (32-36); Mean Corpuscular Hgb 27.7 pg (27.0-32.0); Mean Corpuscular Volume 85.8 fL (80-94); Mean Platelet Vol. 11.2 fl (6.2-12.0); Monocyte# 0.66 X10^3/uL; Monocyte% 5.2 % (0-10); NRBC Flagged by Analyzer 0 % (0-5); Neutrophil # 8.76 X10^3/uL (2.7-7.7); Platelet Count 228 K/mm3 (150-450); RBC Distribution Width CV 16.5 % (11.6-14.6); RBC Distribution Width SD 51.5 fl (35.1-43.9); Red Blood Count 5.37 M/mm3 (4.6-6.2); White Blood Count 12.7 K/mm3 (4.4-11.0)
[2019-10-16] MEDS: Morphine 4 MG/ML Syringe IV (18:29)
[2019-10-16] MEDS: Famotidine 200 MG/20 ML MDV 20 MG in 0.9% Normal Saline (Pres. free 8 ML 300 MG IV (18:29)
[2019-10-16 18:38] LABS: ALB/GLOB Ratio 0.9 RATIO (0.9-2.4); AST(SGOT) 12 U/L (15-37); Alanine Aminotransfer ALT/SGPT 14 U/L (16-61); Albumin, Serum 3.7 g/dL (3.2-5.0); Alkaline Phosphatase 47 U/L (45-117); Anion Gap 6 (5-15); BUN 20 mg/dL (7-18); BUN/Creat Ratio 11.1 RATIO (10-20); Calcium,Total 9.6 mg/dL (8.5-10.1); Chloride 110 mmol/L (98-107); EST Glomerular Filtration Rate 43 mL/min (>60); Est Glom Filt Rate - Afr Amer 52 mL/min (>60); Estimated Creatinine Clearance 55.49 ml/min; Glucose 132 mg/dL (74-106); Lipase 117 U/L (73-393); Potassium 4.3 mmol/L (3.5-5.1); Protein, Total 7.7 g/dL (6.4-8.2); Sodium Level 141 mmol/L (136-145)
--- NOTE | 2019-10-16 19:03 | ED.VISSUMM ---
- ER Visit Summary Date of Service: 10/16/19 Chief Complaint: Abdominal pain History of Present Illness: The patient is a [address] Molina. He reports that he is epigastric abdominal pain that began this morning. Is continuous sharp, burning pain is 10-10 severity. Is worsened by movement and food. She relieved by medication. He has had nausea and vomited 4 times. No blood in his emesis. His last bowel was today. No melena medication. No dysuria or frequency. States the pain does radiate into his chest. Reports he has had this multiple times in the past for gastritis. Physical Examination: Vitals: Stable. Afebrile. General: Well-nourished and well-developed. Head: Normocephalic atraumatic. Neck: Supple, no lymphadenopathy. No JVD. Nontender. Cardiovascular: Regular rate and rhythm. No murmurs. Respiratory: No respiratory distress. Clear to auscultation bilaterally. Abdominal: Soft, moderate epigastric tenderness to palpation, nondistended, normal bowel sounds. No guarding, rebound, or peritoneal signs. Back: Nontender. Extremities: Nontender, no edema. Skin: Normal color, no rash. Neurologic: Alert and oriented ?3. Cranial nerves II through XII are intact. Normal strength and sensation. Psych: Normal affect. Test Results: EKG is sinus bradycardia at [address] changes. Unchanged from prior. Troponin is negative despite greater than 8 hours of constant pain. LFTs marked for an ALT of 14 and AST of 12. Lipase is normal. Chem-7 shows a chloride of 110, glucose 133, BUN 28, and creatinine 1.8. CBC shows a white count of 12.7. Emergency Department Course and Treatment: Patient given a dose of Zofran and morphine IV. He was treated with Pepcid IV and a GI cocktail p.o. He reports that his pain is much improved. Treatment Plan: Prolonged discussion with the patient about symptomatic care. He is instructed continue his Protonix. Take Pepcid in addition to this as needed. Follow-up with his primary care physician 1 to 2 days if not improving. Return to the emergency department for any worsening symptoms. Disposition: To home in improved and stable condition. Impression: 1. Abdominal pain, epigastric. This note was generated with [employer] software. It may contain incorrect words, spelling, and punctuation that were not noted in review of the chart prior to signing ED Disposition - Plan for ED Patient: Disposition: Home or Assisted Living Instructions: GASTRITIS vs. ULCER Referrals: Mariaa Molina MD [Primary Care Provider] - 1-2 Days if not improving
[2019-10-16 19:20] VITALS: BP 190/69; PULSE 55; RESP 14; O2SAT 95
== END 2019-10-16 19:21 | disposition home or self-care (01) ==
LOC: ED 18:22
PROVIDERS: Emergency Provider Emergency Medicine; Family Provider Internal Medicine; PCP Internal Medicine
DX: R10.13 Epigastric pain (principal); I25.10 Atherosclerotic heart disease of native coronary artery without angina pectoris; I25.2 Old myocardial infarction; I10 Essential (primary) hypertension; E11.9 Type 2 diabetes mellitus without complications; Z95.5 Presence of coronary angioplasty implant and graft; Z79.82 Long term (current) use of aspirin; Z79.4 Long term (current) use of insulin; Z79.899 Other long term (current) drug therapy; Z72.0 Tobacco use
CPT/HCPCS: 80053; 83690; 84484; 85025; 93005; 96361; 96374; 96375; 99284; J2405; J3490

== ENCOUNTER 2019-10-17 07:50 | Emergency (ER) | payer MEDICARE, SELFPAY ==
[2019-10-17 07:50] VITALS: BMI 40.2
[2019-10-17 07:51] VITALS: BP 160/78; PULSE 57; RESP 18; TEMP 36.6; O2SAT 96; BMI 41.5
--- NOTE | 2019-10-17 08:25 | ED.VISSUMM ---
- ER Visit Summary Date of Service: 10/17/19 Chief Complaint: Epigastric abdominal pain History of Present Illness: The patient is a 49 M history of diabetes, hypertension, gastroparesis, neuropathies, sleep apnea, renal insufficiency and coronary disease with MIs and stents. Patient still smokes and uses medical marijuana for chronic pain. Patient has a history of gastritis. Diagnosed with upper endoscopy. States he is having a flare. He was seen last in the emergency department at that time had unremarkable labs including CBC, chemistry, lipase and liver enzymes. His chronic renal insufficiency which did show up on his labs. Basically keeps stating that 1 of our doctors treats him each time with pain medication and that is what gets him better. He denies any fever or chills. He has had some nausea and vomiting. He denies any hematemesis or melena. States the pain is a burning pain in his epigastric region. Physical Examination: Middle-aged male vital signs stable afebrile. H EENT exam unremarkable. Neck nontender. Lungs clear to auscultation bilaterally. Heart regular rhythm no murmur. Abdomen is soft. Nondistended. Normal bowel sounds. No peritoneal signs. No pulsatile mass. Patient is moving all 4 extremities. He has no motor deficits. Neurologically is awake and alert. Test Results: I reviewed the test from last night they seem appropriate and basically unremarkable except for his chronic renal insufficiency. Emergency Department Course and Treatment: Patient is strongly alluded to that he wants narcotic pain medication without stating them directly. I explained to him that is not the way to treat this. He will be treated with IV Protonix and a GI cocktail. Nurses were starting the patient's IV meds soon after that he requested narcotic pain medications they just explained to him that had not been ordered yet and we wanted to see how the Protonix and GI cocktail was working. Patient became upset demanded the IV be taken out of his arm and left the emergency department stating that he would come back to get his narcotic pain medications on another visit. Treatment Plan: [] Disposition: discharge Impression: Epigastric abdominal pain Canary to acute on chronic gastritis History of diabetes. History of CAD with UT and stents Left without being discharged and strong concern for drug-seeking behavior This note was generated with [employer] software. It may contain incorrect words, spelling, and punctuation that were not noted in review of the chart prior to signing ED Disposition - Plan for ED Patient: Disposition: Home or Assisted Living Instructions: GASTRITIS (Adult) Referrals: Mariaa Molina MD [Primary Care Provider] - As soon as possible Additional Instructions: Plan diet increase slowly as tolerated. Continue your gastritis medications. Follow-up with your doctor if not improving. Return to the ER if you develop a fever, black stool or throwing up blood.
--- NOTE | 2019-10-17 08:30 | ED.DEP ---
ED Disposition - Plan for ED Patient: Disposition: Home or Assisted Living Instructions: GASTRITIS (Adult) Referrals: Mariaa Molina MD [Primary Care Provider] - As soon as possible Additional Instructions: Plan diet increase slowly as tolerated. Continue your gastritis medications. Follow-up with your doctor if not improving. Return to the ER if you develop a fever, black stool or throwing up blood.
[2019-10-17] MEDS: Mag Hydrox/Al Hydrox/Simeth 30 ML UDC PO (09:04)
--- NOTE | 2019-10-17 09:14 | ED.RN ---
PT UPSET ABOUT CARE. PT STATED THAT I PAY THE BILL AND I SHOULD GET WHAT I WANT I NEED SOME VICODIN FOR A COUPLE DAYS TO GET THROUGH THE PAIN. I AM NOT PAYING FOR THIS BILL AND I WILL NEVER COME BACK TO THIS [facility] AGAIN.
== END 2019-10-17 09:23 | disposition home or self-care (01) ==
LOC: ED 08:56
PROVIDERS: Emergency Provider Emergency Medicine; Family Provider Internal Medicine; PCP Internal Medicine
DX: K29.00 Acute gastritis without bleeding (principal); K29.50 Unspecified chronic gastritis without bleeding; Z76.5 Malingerer [conscious simulation]; I25.10 Atherosclerotic heart disease of native coronary artery without angina pectoris; I25.2 Old myocardial infarction; I12.9 Hypertensive chronic kidney disease with stage 1 through stage 4 chronic kidney disease, or unspecified chronic kidney disease; E11.22 Type 2 diabetes mellitus with diabetic chronic kidney disease; N18.9 Chronic kidney disease, unspecified; E11.40 Type 2 diabetes mellitus with diabetic neuropathy, unspecified; F17.200 Nicotine dependence, unspecified, uncomplicated; Z95.5 Presence of coronary angioplasty implant and graft; Z79.02 Long term (current) use of antithrombotics/antiplatelets; Z79.4 Long term (current) use of insulin; Z79.82 Long term (current) use of aspirin; Z79.899 Other long term (current) drug therapy
CPT/HCPCS: 96374; 99284; J7030; A4216; J3490

== ENCOUNTER → 2019-11-22 10:12 | Outpatient (CLI) | payer MEDICARE, SELFPAY ==
[2019-11-22 09:41] VITALS: BMI 41.8
[2019-11-22 14:07] LABS: Microalbumin:Creatinine Ratio 1322.4 mg/g CRE (<30 mg/g CRE)
== END ==
PROVIDERS: PCP Internal Medicine; Visit Provider Nurse Practitioner Family
DX: E11.610 Type 2 diabetes mellitus with diabetic neuropathic arthropathy (principal)
CPT/HCPCS: 82043; 82570

== ENCOUNTER → 2020-01-02 10:49 | Outpatient (CLI) | payer MEDICARE, SELFPAY ==
[2019-11-22 09:41] VITALS: BMI 41.8
[2020-01-02 12:36] LABS: Hemoglobin 13.5 g/dL (13.0-16.5)
[2020-01-02 12:51] LABS: Vitamin D,25 Hydroxy 50.4 ng/mL
[2020-01-02 12:52] LABS: Albumin, Serum 3.2 g/dL (3.2-5.0); BUN 27 mg/dL (7-18); BUN/Creat Ratio 13.2 RATIO (10-20); Calcium,Total 9.3 mg/dL (8.5-10.1); Chloride 109 mmol/L (98-107); Creatinine, Serum 2.05 mg/dL (0.70-1.30); EST Glomerular Filtration Rate 37 mL/min (>60); Est Glom Filt Rate - Afr Amer 44 mL/min (>60); Glucose 85 mg/dL (74-106); Potassium 4.5 mmol/L (3.5-5.1); Sodium Level 141 mmol/L (136-145)
[2020-01-02 12:55] LABS: Protein, Urine (Random) 171.3 mg/dL (<11.9); Protein:Creat Ratio 1477 mg/g CRE (0-200)
[2020-01-02 12:58] LABS: PTHIN 31.9 pg/mL (18.4-80.1)
== END ==
PROVIDERS: PCP Internal Medicine; Visit Provider Internal Medicine Nephrology
DX: E11.22 Type 2 diabetes mellitus with diabetic chronic kidney disease (principal); N18.3 Chronic kidney disease, stage 3 (moderate); E11.21 Type 2 diabetes mellitus with diabetic nephropathy
CPT/HCPCS: 36415; 80069; 82306; 82570; 83970; 84156; 85018

== ENCOUNTER → 2020-03-22 | Outpatient (CLI) | payer MEDICARE, SELFPAY ==
[2020-03-22 08:51] VITALS: BMI 41.8
[2020-03-22 11:51] LABS: Albumin, Serum 3.4 g/dL (3.2-5.0); BUN 32 mg/dL (7-18); Calcium,Total 9.8 mg/dL (8.5-10.1); Chloride 111 mmol/L (98-107); EST Glomerular Filtration Rate 38 mL/min (>60); Est Glom Filt Rate - Afr Amer 46 mL/min (>60); Glucose 86 mg/dL (74-106); Phosphorus 4.2 mg/dL (2.5-4.9); Potassium 4.7 mmol/L (3.5-5.1); Sodium Level 143 mmol/L (136-145)
[2020-03-22 11:58] LABS: Protein, Urine (Random) 84.6 mg/dL (<11.9); Protein:Creat Ratio 1336 mg/g CRE (0-200)
== END | disposition home or self-care (01) ==
LOC: LABSPEC 10:52
PROVIDERS: PCP Internal Medicine; Referring Provider Internal Medicine Nephrology; Visit Provider Internal Medicine Nephrology
DX: E11.21 Type 2 diabetes mellitus with diabetic nephropathy (principal); E11.22 Type 2 diabetes mellitus with diabetic chronic kidney disease; N18.3 Chronic kidney disease, stage 3 (moderate)
CPT/HCPCS: 80069; 82570; 84156

== ENCOUNTER → 2020-09-03 10:24 | Outpatient (CLI) | payer MEDICARE, SELFPAY ==
[2020-03-22 08:51] VITALS: BMI 41.8
[2020-07-10 09:07] VITALS: BMI 41.5
[2020-09-03 12:41] LABS: Vitamin D,25 Hydroxy 30.7 ng/mL
[2020-09-03 13:06] LABS: Albumin, Serum 3.2 g/dL (3.2-5.0); BUN 29 mg/dL (7-18); BUN/Creat Ratio 14.7 RATIO (10-20); Calcium,Total 9.4 mg/dL (8.5-10.1); Chloride 109 mmol/L (98-107); Creatinine, Serum 1.97 mg/dL (0.70-1.30); EST Glomerular Filtration Rate 38 mL/min (>60); Est Glom Filt Rate - Afr Amer 46 mL/min (>60); Glucose 120 mg/dL (74-106); Phosphorus 2.7 mg/dL (2.5-4.9); Potassium 4.9 mmol/L (3.5-5.1); Sodium Level 141 mmol/L (136-145)
[2020-09-03 13:15] LABS: Protein, Urine (Random) 216.8 mg/dL (<11.9); Protein:Creat Ratio 2657 mg/g CRE (0-200)
== END ==
LOC: LAB.FUTURE 10:24 → BIMLAB 10:53
PROVIDERS: PCP Internal Medicine; Referring Provider Internal Medicine Nephrology; Visit Provider Internal Medicine Nephrology
DX: E11.22 Type 2 diabetes mellitus with diabetic chronic kidney disease (principal); N18.30 Chronic kidney disease, stage 3 unspecified; E11.21 Type 2 diabetes mellitus with diabetic nephropathy; E55.9 Vitamin D deficiency, unspecified
CPT/HCPCS: 36415; 80069; 82306; 82570; 84156

== ENCOUNTER → 2020-10-02 13:08 | Outpatient (CLI) | payer MEDICARE, SELFPAY ==
[2020-07-10 09:07] VITALS: BMI 41.5
[2020-10-02 15:48] LABS: Albumin, Serum 3.1 g/dL (3.2-5.0); BUN 24 mg/dL (7-18); BUN/Creat Ratio 13.4 RATIO (10-20); Calcium,Total 8.7 mg/dL (8.5-10.1); Chloride 110 mmol/L (98-107); Creatinine, Serum 1.79 mg/dL (0.70-1.30); EST Glomerular Filtration Rate 43 mL/min (>60); Est Glom Filt Rate - Afr Amer 52 mL/min (>60); Glucose 109 mg/dL (74-106); Phosphorus 3.2 mg/dL (2.5-4.9); Potassium 4.1 mmol/L (3.5-5.1); Sodium Level 141 mmol/L (136-145)
[2020-10-02 16:04] LABS: Protein, Urine (Random) 414.5 mg/dL (<11.9); Protein:Creat Ratio 3838 mg/g CRE (0-200)
[2020-10-04 15:00] LABS: Vitamin D,25 Hydroxy 29.1 ng/mL
== END ==
PROVIDERS: PCP Internal Medicine; Referring Provider Internal Medicine Nephrology; Visit Provider Internal Medicine Nephrology
DX: E11.21 Type 2 diabetes mellitus with diabetic nephropathy (principal); E11.22 Type 2 diabetes mellitus with diabetic chronic kidney disease; N18.30 Chronic kidney disease, stage 3 unspecified; E55.9 Vitamin D deficiency, unspecified
CPT/HCPCS: 36415; 80069; 82306; 82570; 84156

== ENCOUNTER → 2020-11-18 12:13 | Outpatient (CLI) | payer MEDICARE, SELFPAY ==
[2020-10-09 09:10] VITALS: BMI 41.4
[2020-11-18 15:52] LABS: Albumin, Serum 3.2 g/dL (3.2-5.0); BUN 26 mg/dL (7-18); BUN/Creat Ratio 13.9 RATIO (10-20); Calcium,Total 8.6 mg/dL (8.5-10.1); Chloride 107 mmol/L (98-107); Creatinine, Serum 1.87 mg/dL (0.70-1.30); EST Glomerular Filtration Rate 41 mL/min (>60); Est Glom Filt Rate - Afr Amer 49 mL/min (>60); Glucose 110 mg/dL (74-106); Phosphorus 2.8 mg/dL (2.5-4.9); Potassium 4.4 mmol/L (3.5-5.1); Sodium Level 140 mmol/L (136-145)
[2020-11-20 16:09] LABS: Albumin 3.2 g/dL (2.9-4.4); Alpha-1-Globulins 0.3 g/dL (0.0-0.4); Alpha-2-Globulins 0.9 g/dL (0.4-1.0); Gamma Globulin 0.8 g/dL (0.4-1.8); Immunoglobulin A 181 mg/dL (90-386); Immunoglobulin G 855 mg/dL (603-1613); Immunoglobulin M 37 mg/dL (20-172); PROEL- TOTAL PROTEIN 6.2 g/dL (6.0-8.5)
== END ==
PROVIDERS: PCP Internal Medicine; Referring Provider Internal Medicine Nephrology; Visit Provider Internal Medicine Nephrology
DX: I12.9 Hypertensive chronic kidney disease with stage 1 through stage 4 chronic kidney disease, or unspecified chronic kidney disease (principal); E11.22 Type 2 diabetes mellitus with diabetic chronic kidney disease; N18.32 Chronic kidney disease, stage 3b; E11.21 Type 2 diabetes mellitus with diabetic nephropathy; E55.9 Vitamin D deficiency, unspecified
CPT/HCPCS: 36415; 80069; 82784; 84165; 86334

== ENCOUNTER → 2020-12-02 13:02 | Outpatient (CLI) | payer MEDICARE, SELFPAY ==
[2020-11-28 10:48] VITALS: BMI 40.1
--- NOTE | 2020-12-02 13:06 | RAD_ITS ---
STUDY: X-RAY BONE SURVEY COMPLETE REASON FOR EXAM: Male, 50 years old. pt states high protein in urine, diabetic, neuropathy pain, gallbladder removed TECHNIQUE: 25 images of the axial and appendicular skeleton. COMPARISON: None. FINDINGS: Cervical straightening. Mild cervical spine osteoarthritis. Mild/moderate thoracic and lumbar spine osteoarthritis. Mild pelvic osteoarthritis at the hips and pubic symphysis. Mild osteoarthritis at the elbows. No acute fracture, dislocation or osseous destruction. Osteopenia. No significant soft tissue swelling. Right upper quadrant surgical clips. Vascular calcifications. RAD/Bone Survey Comp(Axial&Append) IMPRESSION: No acute bone destruction Degenerative changes, as above Electronically Signed: Manav Starr DO at 9:20 EST Tel , Service support ,
== END ==
LOC: RAD 13:04
PROVIDERS: PCP Internal Medicine; Referring Provider Internal Medicine Hematology & Oncology; Visit Provider Internal Medicine Hematology & Oncology
DX: D47.2 Monoclonal gammopathy (principal)
CPT/HCPCS: 77075

== ENCOUNTER → 2020-12-17 08:48 | Outpatient (CLI) | payer MEDICARE, SELFPAY ==
[2020-12-09 15:02] VITALS: BMI 39.6
[2020-12-17] VITALS (10 sets, daily range): BP systolic 135–170; BP diastolic 57–99; PULSE 50–57; RESP 13–19; TEMP 37.1; O2SAT 94–98; BMI 39.6
--- NOTE | 2020-12-17 09:00 | CT_ITS ---
PROCEDURE: CT GUIDED BONE marrow biopsy and bone marrow aspirate from the posterior right iliac bone. DATE: 12/17/2020. INDICATION: Male, 50 years old. [facility] PHYSICIAN: Oliver Ellison M.D. RADIATION DOSAGE (If Supplied By Facility): CTDIvol = ( 23 ) mGy, DLP = ( 475.03 ) mGycm. Individualized dose optimization techniques were utilized. PROCEDURE: The risks, benefits, and alternatives to the procedure were explained to the patient. The specific risk of hemorrhage requiring further treatment or intervention was detailed and accepted. Follow-up instructions were discussed with the patient as well. Written informed consent was obtained. The patient was brought into the CT suite and placed in the prone position. . An appropriate entry site was identified. The overlying skin was prepped and draped in the usual sterile fashion. 1% lidocaine was administered subcutaneously for local anesthesia. Conscious sedation was performed. The patient received 2 mg of VERSED and 50 mcg of FENTANYL intravenously. Conscious sedation was started at 10:05 AM and terminated at 10:20 AM. The patient was independently monitored by the department nurse. Under CT guidance, a bone marrow biopsy and bone marrow aspirates from the posterior aspect of the right iliac bone were performed The specimens were then placed in the appropriate fluid and transported to the laboratory for analysis. Hemostasis was obtained. The patient tolerated the procedure well without immediate complications. CT/Biopsy/Inj or Needle Placement IMPRESSION: Successful CT guided bone marrow biopsy and bone marrow aspirates of the posterior right iliac bone, as described above.. Conscious sedation protocol was followed. Electronically Signed: Oliver Ellison MD at 10:57 EST , Service support ,
[2020-12-17 09:06] LABS: Absolute Lymphocyte Count 2.52 X10^3/uL (0.83-4.51); Absolute Neutrophil Count 3.8 X10^3/uL (2.0-7.7); Basophil# 0.05 X10^3/uL; Basophil% 0.7 % (0-1); Eosinophil# 0.18 X10^3/uL; Eosinophils% 2.4 % (0-5); Hematocrit 45.7 % (40-54); Hemoglobin 14.7 g/dL (13.0-16.5); Lymphocyte # 2.52 X10^3/ul (4.0); Lymphocyte % 34.3 % (19-41); Mean Corp Hgb Conc 32.2 g/dL (32-36); Mean Corpuscular Hgb 28.4 pg (27.0-32.0); Mean Corpuscular Volume 88.4 fL (80-94); Mean Platelet Vol. 10.4 fl (6.2-12.0); Monocyte# 0.79 X10^3/uL; Monocyte% 10.7 % (0-10); NRBC Flagged by Analyzer 0 % (0-5); Neutrophil # 3.79 X10^3/uL (2.7-7.7); Neutrophil % 51.6 % (47-70); Platelet Count 221 K/mm3 (150-450); RBC Distribution Width CV 16.6 % (11.6-14.6); Red Blood Count 5.17 M/mm3 (4.6-6.2); White Blood Count 7.4 K/mm3 (4.4-11.0)
[2020-12-17 09:12] LABS: Prothrombin Time (Protime)PT. 12.6 SECONDS (11.7-14.9)
[2020-12-17 09:13] LABS: Partial Thromboplast Time 27.9 Seconds (24.1-36.2)
--- NOTE | 2020-12-17 09:17 | BMB_PTH ---
PATIENT: DIVINA LOVE LOC: [place] U#:[id number] AGE/SX: 55/M ROOM: RE12/17/[address]: Dr. Asha Farias MD : 1970 BED: DIS: SPEC #: [id number] RECD: 12/17/20 10:54 STATUS: XAVIER REEdelmira #: [id number] ROSSY: 12/17/20 09:[address]: Asha Farias DEPT: BONE MARROW RECD BY: Lucero Brian ENTERED: 12/17/20 10:59 SP TYPE: BMB OTHR DR: Dr. Mariaa Molina MD Tissues: A - Bone marrow, NOS B - Bone marrow, NOS C - Bone marrow, NOS Procedures: Decalcification bone/plaque Bone Marrow Aspiration Surgery Specimen Level IV Amyloid Stain (control) Bone Marrow Core Biopsy Iron Stain Bone Marrow HEADER OPERATION: Bone marrow biopsy and aspiration PRE-OP DIAGNOSIS: IGG-L, MGUS, positive nephrotic range proteinuria; rule out amyloid/plasma cell dyscrasia TISSUE SUBMITTED: A - Core, B - Clot, C - Smears, and send outs (flow, cytogenetics, MM FISH) BONE MARROW DIAGNOSIS Bone marrow core, clot and aspirate smears: Hypocellular marrow with trilineage hematopoiesis. [facility] no [facility] of lymphoproliferative disorder or plasma cell neoplasm. The complete report is viewable in the patient's EMR. Cytogenetic and FISH studies are pending at this time. See comment. SJ:artur 12/19/2020 COMMENT Congo red stain for amyloid is negative, matched control is appropriate. Bone marrow aspirate clot consists of predominantly peripheral blood with scant marrow tissue with trilineage hematopoiesis. The aspirate smears show hemodilution. Clinical correlation and appropriate follow up are necessary. Case has been reviewed in consultation with Dr. Thorpe who concurs with the above diagnosis. IDC:AM BONE MARROW STUDY Slides are reviewed. CBC DATE: 12/17/20 WBC 7.4; RBC 5.17; HGB 14.7; HCT 45.7; MCV 88.4; RDW 16.6; PLTS 221 SEGS 51.6%; LYMPHS 34.3%; MONOS 10.7%; EOS 2.4%; BASOS 0.3% PERIPHERAL SMEAR: Submitted. RBC: Normocytic and normochromic. WBC: Unremarkable. The WBC count is compatible to as reported above. PLTS: Adequate. BONE MARROW ASPIRATE DIFFERENTIAL: 200 cell count. Blasts % (normal 0-2): 0 Promyelocytes % (normal 1-5): 0 Myelocytes and metamyelocytes % (normal 17-41): 24 Bands and Segs % (normal 15-32): 55 Eos % (normal 1-6): 2 Basos % (normal 0-1): 0 Monocytes % (normal 0-4): 1 Erythroid Precursors % (normal 17-35): 14 Lymphocytes % (normal 7-13): 4 Plasma Cells % (normal 0-2): 0 ASPIRATE FINDINGS: Site: Not specified Aspicular, Cellular M/E ratio: 5.8 (Normal 1.5-4.0) Megakaryocytes: Not seen Erythropoiesis: Normoblastic. Granulopoiesis: Progressive and unremarkable. Comment: The smears show hemodilution. The above count might not be accurate due to hemodilution. CORE BIOPSY FINDINGS: Site: Not specified Adequacy: Adequate with focal area of aspiration artifacts. Cellularity: 20% M/E ratio: Mild erythroid hyperplasia is noted. Megakaryocytes: Present and adequate in number. Bony trabeculae: Unremarkable. Granulomas: Absent. Lymphoid aggregate: Absent. Atypical infiltrate: Absent. ASPIRATE CLOT FINDINGS: Site: Not specified Comment: The specimen predominantly consists of peripheral blood with a scant marrow tissue with trilineage hematopoiesis. SPECIAL STAINS WITH MATCHED CONTROLS: Iron: Absent Reticulin: No significant increase of reticulin fibers is noted. PAS: Highlights myeloid cells and megakaryocytes. Congo Red stain with matched control was used in the evaluation of this case and is negative. BONE MARROW GROSS A - Received is a container labeled with the patient's name and designated bone marrow. The specimen consists of a piece of craig bone measuring 0.6 cm in length and 0.1 cm in diameter. The specimen is totally submitted in one cassette after decalcification. B - Received labeled with the patient's name and designated bone marrow is a specimen that consists of approximately 6 cc of bloody fluid that on filtration yields multiple minute fragments of blood clots measuring in aggregate 3 x 2.5 x 0.3 cm. The specimen is totally submitted in one cassette. C - Also received are 17 unstained and 1 peripheral stained slides. The unstained slides are submitted for appropriate staining. Also received are three green top tubes which are sent to our reference lab for flow, cytogenetics and MM?FISH. / SJ:rg 12/17/2020 TC:5 CPT: 88994, 57018, 73994 x2, 82830 x4, 93544 ADDENDUM ADDENDUM ADDENDUM ADDENDUM ADDENDUM ADDEND ADDEND ADDEND 12/25/2020 10:01 ADDENDUM 12/25/2020 10:01 ADDENDUM 12/25/2020 10:01 ADDENDUM 12/25/2020 10:01 ADDEND 12/25/2020 10:01 ADDEND 12/27/2020 11:51 CYTOGENETICS REPORT FROM [email or web address] INTERPRETATION: A normal male chromosome complement was observed in twenty metaphases analyzed. Karyotype: 46,XY[20] Please see complete report in e-chart or EMR for further details FLUORESCENCE IN-SITU HYBRIDIZATION (FISH) FROM [email or web address] INTERPRETATION: No evidence of IGH/MAFB [translocation t(14;20)] gene rearrangement. Please see complete report in e-chart or EMR
[2020-12-17] MEDS: Midazolam 2 MG/2 ML Syringe IV (10:05)
[2020-12-17] MEDS: fentaNYL 100 MCG/2 ML Ampul IV (10:05)
[2020-12-17 14:22] LABS: Bone Marrow Aspiraton SEE PATHOLOGY REPORT
== END ==
LOC: CT 08:49
PROVIDERS: PCP Internal Medicine; Referring Provider Internal Medicine Hematology & Oncology; Visit Provider Internal Medicine Hematology & Oncology
DX: D47.2 Monoclonal gammopathy (principal); I25.10 Atherosclerotic heart disease of native coronary artery without angina pectoris; I12.9 Hypertensive chronic kidney disease with stage 1 through stage 4 chronic kidney disease, or unspecified chronic kidney disease; E11.42 Type 2 diabetes mellitus with diabetic polyneuropathy; E11.22 Type 2 diabetes mellitus with diabetic chronic kidney disease; N18.30 Chronic kidney disease, stage 3 unspecified; E78.5 Hyperlipidemia, unspecified; E66.01 Morbid (severe) obesity due to excess calories; F17.200 Nicotine dependence, unspecified, uncomplicated; Z79.4 Long term (current) use of insulin; Z79.02 Long term (current) use of antithrombotics/antiplatelets; Z79.899 Other long term (current) drug therapy
CPT/HCPCS: 38222; 36415; 77012; 85025; 85610; 85730; 88305; 88311; 88313; 99155; 99156; J7040; A4216

== ENCOUNTER → 2021-02-10 10:30 | Outpatient (CLI) | payer MEDICARE, SELFPAY ==
[2020-10-09 09:10] VITALS: BMI 41.4
[2021-01-08 09:07] VITALS: BMI 39.9
[2021-02-10 12:20] LABS: Hematocrit 43.3 % (40-54); Hemoglobin 13.5 g/dL (13.0-16.5); Mean Corp Hgb Conc 31.2 g/dL (32-36); Mean Corpuscular Hgb 27.8 pg (27.0-32.0); Mean Corpuscular Volume 89.1 fL (80-94); Mean Platelet Vol. 10.8 fl (6.2-12.0); Platelet Count 213 K/mm3 (150-450); RBC Distribution Width CV 16.9 % (11.6-14.6); RBC Distribution Width SD 54.6 fl (35.1-43.9); Red Blood Count 4.86 M/mm3 (4.6-6.2); White Blood Count 9.6 K/mm3 (4.4-11.0)
[2021-02-10 12:26] LABS: Albumin, Serum 3.3 g/dL (3.2-5.0); BUN 45 mg/dL (7-18); BUN/Creat Ratio 19.8 RATIO (10-20); Calcium,Total 8.8 mg/dL (8.5-10.1); Chloride 107 mmol/L (98-107); Creatinine, Serum 2.27 mg/dL (0.70-1.30); EST Glomerular Filtration Rate 32 mL/min (>60); Est Glom Filt Rate - Afr Amer 39 mL/min (>60); Glucose 142 mg/dL (74-106); Phosphorus 2.3 mg/dL (2.5-4.9); Potassium 5.3 mmol/L (3.5-5.1); Sodium Level 138 mmol/L (136-145)
[2021-02-10 12:34] LABS: Vitamin D,25 Hydroxy 32.7 ng/mL
[2021-02-10 12:40] LABS: PTHIN 61.7 pg/mL (18.4-80.1)
[2021-02-10 12:49] LABS: Protein, Urine (Random) 245.1 mg/dL (<11.9); Protein:Creat Ratio 2647 mg/g CRE (0-200)
== END ==
PROVIDERS: PCP Internal Medicine; Referring Provider Internal Medicine Nephrology; Visit Provider Internal Medicine Nephrology
DX: I12.9 Hypertensive chronic kidney disease with stage 1 through stage 4 chronic kidney disease, or unspecified chronic kidney disease (principal); E11.22 Type 2 diabetes mellitus with diabetic chronic kidney disease; N18.32 Chronic kidney disease, stage 3b; E11.21 Type 2 diabetes mellitus with diabetic nephropathy; E55.9 Vitamin D deficiency, unspecified
CPT/HCPCS: 36415; 80069; 82306; 82570; 83970; 84156; 85027

== ENCOUNTER → 2021-04-10 15:06 | Outpatient (CLI) | payer MEDICARE, SELFPAY ==
[2021-04-10 14:40] VITALS: BMI 39.9
[2021-04-10 16:48] LABS: Cholesterol 130 mg/dL (200); High Density Lipoprotein 29 mg/dL; Triglycerides 169 mg/dL; Very Low Density Lipoprotein 34 mg/dL (5-40)
== END ==
PROVIDERS: PCP Internal Medicine; Visit Provider Internal Medicine
DX: E11.610 Type 2 diabetes mellitus with diabetic neuropathic arthropathy (principal); E78.5 Hyperlipidemia, unspecified
CPT/HCPCS: 36415; 80061

== ENCOUNTER → 2021-06-24 13:46 | Outpatient (CLI) | payer MEDICARE, SELFPAY ==
[2021-04-25 10:25] VITALS: BMI 39.9
[2021-06-24 14:54] LABS: Absolute Lymphocyte Count 3.31 X10^3/uL (0.83-4.51); Basophil# 0.04 X10^3/uL; Basophil% 0.5 % (0-1); Eosinophil# 0.28 X10^3/uL; Eosinophils% 3.4 % (0-5); Hematocrit 40.3 % (40-54); Hemoglobin 12.8 g/dL (13.0-16.5); Lymphocyte # 3.31 X10^3/ul (0.83-4.51); Lymphocyte % 39.7 % (19-41); Mean Corp Hgb Conc 31.8 g/dL (32-36); Mean Corpuscular Hgb 28.7 pg (27.0-32.0); Mean Corpuscular Volume 90.4 fL (80-94); Mean Platelet Vol. 10.8 fl (6.2-12.0); Monocyte# 0.71 X10^3/uL; Monocyte% 8.5 % (0-10); NRBC Flagged by Analyzer 0 % (0-5); Neutrophil # 3.98 X10^3/uL (2.7-7.7); Neutrophil % 47.7 % (47-70); Platelet Count 244 K/mm3 (150-450); RBC Distribution Width CV 15.9 % (11.6-14.6); RBC Distribution Width SD 52.8 fl (35.1-43.9); Red Blood Count 4.46 M/mm3 (4.6-6.2); White Blood Count 8.3 K/mm3 (4.4-11.0)
[2021-06-24 15:13] LABS: ALB/GLOB Ratio 0.9 RATIO (0.9-2.4); AST(SGOT) 17 U/L (15-37); Alanine Aminotransfer ALT/SGPT 20 U/L (16-61); Albumin, Serum 3.5 g/dL (3.2-5.0); Alkaline Phosphatase 35 U/L (45-117); Anion Gap 0 (5-15); BUN 35 mg/dL (7-18); BUN/Creat Ratio 14.3 RATIO (10-20); Calcium,Total 8.9 mg/dL (8.5-10.1); Chloride 109 mmol/L (98-107); Creatinine, Serum 2.44 mg/dL (0.70-1.30); EST Glomerular Filtration Rate 30 mL/min (>60); Est Glom Filt Rate - Afr Amer 36 mL/min (>60); Globulin 3.8 g/dL (2.2-4.2); Glucose 117 mg/dL (74-106); Potassium 5.2 mmol/L (3.5-5.1); Protein, Total 7.3 g/dL (6.4-8.2); Sodium Level 138 mmol/L (136-145)
[2021-06-26 16:08] LABS: Albumin 3.5 g/dL (2.9-4.4); Alpha-1-Globulins 0.2 g/dL (0.0-0.4); Alpha-2-Globulins 0.9 g/dL (0.4-1.0); Free Kappa Light Chains 56.1 mg/L (3.3-19.4); Free Lambda Light Chains 34.4 mg/L (5.7-26.3); Gamma Globulin 0.8 g/dL (0.4-1.8); Immunoglobulin A 168 mg/dL (90-386); Immunoglobulin G 895 mg/dL (603-1613); Immunoglobulin M 39 mg/dL (20-172); PROEL- TOTAL PROTEIN 6.5 g/dL (6.0-8.5)
[2021-06-26 16:24] LABS: IMMUNOFIXATION RESULT,S Comment: (.)
== END ==
PROVIDERS: PCP Internal Medicine; Visit Provider Internal Medicine Hematology & Oncology
DX: D47.2 Monoclonal gammopathy (principal)
CPT/HCPCS: 36415; 80053; 82784; 83883; 84165; 85025; 86334

== ENCOUNTER → 2021-08-06 09:57 | Outpatient (CLI) | payer MEDICARE, SELFPAY ==
[2021-01-08 09:07] VITALS: BMI 39.9
[2021-08-06 15:24] LABS: Anion Gap 4 (5-15); BUN 51 mg/dL (7-18); BUN/Creat Ratio 19.2 RATIO (10-20); Calcium,Total 8.9 mg/dL (8.5-10.1); Chloride 105 mmol/L (98-107); Creatinine, Serum 2.66 mg/dL (0.70-1.30); EST Glomerular Filtration Rate 27 mL/min (>60); Est Glom Filt Rate - Afr Amer 33 mL/min (>60); Glucose 138 mg/dL (74-106); Potassium 5.3 mmol/L (3.5-5.1); Sodium Level 138 mmol/L (136-145)
== END ==
PROVIDERS: PCP Internal Medicine; Referring Provider Internal Medicine Nephrology; Visit Provider Internal Medicine Nephrology
DX: E87.5 Hyperkalemia (principal)
CPT/HCPCS: 36415; 80048

== ENCOUNTER → 2021-08-13 10:56 | Outpatient (CLI) | payer MEDICARE, SELFPAY ==
[2021-08-13 12:58] LABS: Albumin, Serum 3.3 g/dL (3.2-5.0); BUN 54 mg/dL (7-18); BUN/Creat Ratio 20.3 RATIO (10-20); Chloride 106 mmol/L (98-107); Creatinine, Serum 2.66 mg/dL (0.70-1.30); EST Glomerular Filtration Rate 27 mL/min (>60); Est Glom Filt Rate - Afr Amer 33 mL/min (>60); Glucose 123 mg/dL (74-106); Phosphorus 3.9 mg/dL (2.5-4.9); Potassium 5.5 mmol/L (3.5-5.1); Sodium Level 138 mmol/L (136-145)
== END ==
PROVIDERS: PCP Internal Medicine; Referring Provider Internal Medicine Nephrology; Visit Provider Internal Medicine Nephrology
DX: N17.9 Acute kidney failure, unspecified (principal)
CPT/HCPCS: 36415; 80069

== ENCOUNTER → 2021-09-10 10:52 | Outpatient (CLI) | payer MEDICARE, SELFPAY ==
[2021-09-10 12:29] LABS: Hematocrit 39.6 % (40-54); Hemoglobin 12.7 g/dL (13.0-16.5); Mean Corp Hgb Conc 32.1 g/dL (32-36); Mean Corpuscular Hgb 28.7 pg (27.0-32.0); Mean Corpuscular Volume 89.6 fL (80-94); Mean Platelet Vol. 11.4 fl (6.2-12.0); Platelet Count 233 K/mm3 (150-450); RBC Distribution Width CV 16.3 % (11.6-14.6); RBC Distribution Width SD 53.3 fl (35.1-43.9); Red Blood Count 4.42 M/mm3 (4.6-6.2); White Blood Count 10.1 K/mm3 (4.4-11.0)
[2021-09-10 12:34] LABS: BUN 45 mg/dL (7-18); BUN/Creat Ratio 18.5 RATIO (10-20); Calcium,Total 9.1 mg/dL (8.5-10.1); Chloride 107 mmol/L (98-107); Creatinine, Serum 2.43 mg/dL (0.70-1.30); EST Glomerular Filtration Rate 30 mL/min (>60); Est Glom Filt Rate - Afr Amer 36 mL/min (>60); Glucose 195 mg/dL (74-106); Phosphorus 3.1 mg/dL (2.5-4.9); Potassium 5.1 mmol/L (3.5-5.1); Sodium Level 138 mmol/L (136-145)
[2021-09-10 12:36] LABS: PTHIN 74.6 pg/mL (18.4-80.1)
[2021-09-10 12:40] LABS: Protein, Urine (Random) 129.3 mg/dL (<11.9); Protein:Creat Ratio 1565 mg/g CRE (0-200)
== END ==
LOC: BIMLAB 10:53
PROVIDERS: PCP Internal Medicine; Referring Provider Internal Medicine Nephrology; Visit Provider Internal Medicine Nephrology
DX: N17.9 Acute kidney failure, unspecified (principal); N18.4 Chronic kidney disease, stage 4 (severe)
CPT/HCPCS: 36415; 80069; 82306; 82570; 83970; 84156; 85027

== ENCOUNTER 2021-11-25 13:59 | Outpatient (RCR) | payer MEDICARE, SELFPAY | END 2021-12-08 23:59 | LOC: DC 13:59 | PROVIDERS: PCP Internal Medicine; Visit Provider Nurse Practitioner Family | DX: E11.9 Type 2 diabetes mellitus without complications (principal); Z71.3 Dietary counseling and surveillance | CPT/HCPCS: 97802 ==

== ENCOUNTER 2022-02-19 04:56 | Emergency (ER) | payer MEDICARE, SELFPAY ==
[2022-02-19 04:57] VITALS: BP 133/58; PULSE 60; RESP 18; TEMP 36.1; O2SAT 98; BMI 38.4
--- NOTE | 2022-02-19 05:04 | EKG12_ITS ---
Test Reason : Blood Pressure : / mmHG Vent. Rate : 058 BPM Atrial Rate : 058 BPM P-R Int : 150 ms QRS Dur : 106 ms QT Int : 460 ms P-R-T Axes : 084 037 061 degrees QTc Int : 451 ms Sinus bradycardia Inferior infarct , age undetermined Anterolateral infarct , age undetermined Abnormal ECG Confirmed by DULCE COHEN, ADRIAN ([id number]), department editor HOANG MCNEIL ([id number]) on 02/23/2022 1:49:08 PM Referred By: LAINE/CORY Confirmed By:OCTAVIANO CARDONA MD
--- NOTE | 2022-02-19 05:04 | RAD_ITS ---
INDICATION: chest pain EXAMINATION: Frontal view of the chest COMPARISON: None. FINDINGS: Frontal view of the chest was obtained. The cardiac silhouette is not enlarged. No confluent airspace disease. No pneumothorax. IMPRESSION: No acute pulmonary disease. Electronically Signed: Ector Navarrete MD at 6:12 EDT , RAD/Chest 1 View (Portable)
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
--- NOTE | 2022-02-19 05:05 | EKG12_ITS ---
Test Reason : CP Blood Pressure : / mmHG Vent. Rate : 058 BPM Atrial Rate : 058 BPM P-R Int : 156 ms QRS Dur : 098 ms QT Int : 482 ms P-R-T Axes : -08 055 057 degrees QTc Int : 473 ms Sinus bradycardia Inferior infarct , age undetermined Anterolateral infarct , age undetermined Abnormal ECG Confirmed by DULCE COHEN, ADRIAN ([id number]), film or videotape editor HOANG MCNEIL ([id number]) on 02/23/2022 1:51:23 PM Referred By: FERNIE Confirmed By:OCTAVIANO CARDONA MD
[2022-02-19 05:12] LABS: Absolute Lymphocyte Count 3.51 X10^3/uL (0.83-4.51); Basophil# 0.04 X10^3/uL; Basophil% 0.3 % (0-1); Eosinophil# 0.02 X10^3/uL; Eosinophils% 0.1 % (0-5); Hematocrit 46.7 % (40-54); Hemoglobin 15.1 g/dL (13.0-16.5); Lymphocyte # 3.51 X10^3/ul (0.83-4.51); Lymphocyte % 25.2 % (19-41); Mean Corp Hgb Conc 32.3 g/dL (32-36); Mean Corpuscular Hgb 28.4 pg (27.0-32.0); Mean Corpuscular Volume 87.9 fL (80-94); Mean Platelet Vol. 10.9 fl (6.2-12.0); Monocyte# 1.32 X10^3/uL; Monocyte% 9.5 % (0-10); NRBC Flagged by Analyzer 0 % (0-5); Neutrophil # 8.97 X10^3/uL (2.7-7.7); Neutrophil % 64.5 % (47-70); Platelet Count 276 K/mm3 (150-450); RBC Distribution Width CV 16.2 % (11.6-14.6); RBC Distribution Width SD 52.4 fl (35.1-43.9); Red Blood Count 5.31 M/mm3 (4.6-6.2); White Blood Count 13.9 K/mm3 (4.4-11.0)
[2022-02-19] MEDS: Ondansetron 4 MG/2 ML Vial IV (05:16)
[2022-02-19] MEDS: Mag Hydrox/Al Hydrox/Simeth 30 ML UDC PO (05:16)
[2022-02-19 05:30] LABS: ALB/GLOB Ratio 0.9 RATIO (0.9-2.4); AST(SGOT) 28 U/L (15-37); Alanine Aminotransfer ALT/SGPT 26 U/L (16-61); Albumin, Serum 4.2 g/dL (3.2-5.0); Alkaline Phosphatase 45 U/L (45-117); Anion Gap 5 (5-15); BUN 45 mg/dL (7-18); BUN/Creat Ratio 15.5 RATIO (10-20); Calcium,Total 10.1 mg/dL (8.5-10.1); Chloride 105 mmol/L (98-107); EST Glomerular Filtration Rate 24 mL/min (>60); Est Glom Filt Rate - Afr Amer 29 mL/min (>60); Estimated Creatinine Clearance 33.67 ml/min; Globulin 4.5 g/dL (2.2-4.2); Glucose 134 mg/dL (74-106); Lipase 135 U/L (73-393); Potassium 4.3 mmol/L (3.5-5.1); Protein, Total 8.7 g/dL (6.4-8.2); Sodium Level 137 mmol/L (136-145)
[2022-02-19 05:31] LABS: Bedside Glucose 162 mg/dL (74-106)
[2022-02-19 05:32] LABS: Troponin-I HS (w/2H Reflex) 65 pg/mL (3.0-78.0)
[2022-02-19 06:07] VITALS: BP 171/57; PULSE 56; RESP 18; O2SAT 99
[2022-02-19 07:05] LABS: Amphetamine Urine VISTA NEGATIVE (<1000 ng/mL); Barbiturate Urine VISTA NEGATIVE (< 200 ng/mL); Benzodiazepine Urine VISTA NEGATIVE (< 200 ng/mL); Cocaine Urine VISTA NEGATIVE (< 300 ng/mL); Ecstacy Urine VISTA NEGATIVE (< 500 ng/mL); Methadone Urine VISTA NEGATIVE (< 300 ng/mL); PCP Urine VISTA NEGATIVE (< 25 ng/mL); THC Urine VISTA POSITIVE (< 50 ng/mL); Vista UDS pH Range 5
[2022-02-19 07:15] LABS: Reflex Troponin-HS? (from REC) Y
[2022-02-19 07:37] LABS: Alcohol, Blood (Medical)-Serum < 3.0 mg/dL
[2022-02-19 08:00] VITALS: RESP 16
[2022-02-19 08:18] LABS: Troponin-I HS 59 pg/mL (3.0-78.0)
[2022-02-19 09:00] VITALS: RESP 18
[2022-02-19 11:47] VITALS: BP 141/60; PULSE 61; RESP 18; O2SAT 96
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
--- NOTE | 2022-02-19 13:45 | CASEMGMT ---
Social Work Note TAMARA received message from Jenn at [facility] [place] stating she has no beds available today. TAMARA placed a call to [facility] in [place] and spoke with Ladarius. Ladarius states that he would need to know that pt is 17 years of age, physically able to take care of self, able to complete personal hygiene, take own medications and medicate own self. They also request photo ID but if pt doesn't have one then it is not a deal breaker. Pt cannot have any sexual offenses against him. TAMARA informed Ladarius that this worker knows that pt doesn't have any sexual offenses against him. TAMARA informed Ldaarius that pt does have CPAP/Sleep Apnea Machine. Ladarius states that pt can arrive with his Sleep Apnea Machine/CPAP machine and use the machine. Ladarius states that pt will be in a dorm with 30 other men. TAMARA informed Ladarius that pt does have a court date arranged for February 25 and asked if there was any transportation resources/assistance available for pt to get back to [facility] for his court date and Ladarius states that is a possibility that they will have resources/assistance available for pt. TAMARA asked Ladarius if pt is agreeable to coming to [facility], what would be the process to get pt there. Ladarius states that pt will need to arrive between 6:00-6:30pm to sign in and check in and get his bed assignment. Ladarius states that pt will need to sign an agreement to remain at the retirement for 30 days. Ladarius states that pt can leave before that 30 day franchesca and doesn't have to stay for the whole 30 days. Ladarius states that every night pt would need to check in/sign in between 6:00-6:30pm and if pt doesn't sign in at that time, pt will be banned from the retirement for 60 days. Ladarius states that they are a sherry based retirement so pt will need to attend scientology every night. TAMARA informed Ladarius that this worker will speak with pt regarding this option. TAMARA also placed a call to [facility] in [place], no beds available. SW to discuss with pt. Joslyn Valdez STAVE MACHINE TENDER, CORRECTIONAL CASE RECORDS SUPERVISOR
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
[2022-02-19 15:14] VITALS: BP 159/73; PULSE 64; RESP 16; O2SAT 97
--- NOTE | 2022-02-19 17:07 | CM.ED ---
Social Work Emergency Department Called patient's daughter Ellie Powell, who is the patient's emergency contact and listed on safety plan done today with the patient. Ellie rodriguez has been talking to the patient on and off, and was able to recap for this database report writer what led patient to come to the ED. Updated Ellie to patient's safety plan and that a temporary assisted was secured for this patient. Reinforced that resources are limited so that it is important for patient to adhere to assisted rules in order to get the best benefit from the resource. Ellie jennifer will reinforce and encourage patient. Ellie provided her updated address for patient's demographic/emergency contact information. Ellie Powell [address] [place] [phone] Patient's other daughter Charity lives in [place], [place], but Ellie does not have contact information at this time and is reportedly not reliable. No other services requested or indicated. Patient discharged via taxi from the ED to go to [facility]. Refer to prior social work notes from this visit for details of interactions and interventions. -LEAH Holland, HL7 DEVELOPER
--- NOTE | 2022-02-20 19:04 | CM.ED ---
SW made follow up phone call to patient on this date. Phone went to voice mail and social welfare research worker asked for patient to call social back as follow up to the safety plan. As of this time (7:05pm) there was no call back. Zaida LYNN
--- NOTE | 2022-02-23 15:01 | CASEMGMT ---
Addendum entered by Joslyn Valdez 02/23/22 15:25: SW received call from pt. Pt states that he is doing ok. Pt states that this worker fib to him though as the [facility] not a medical facility. Pt states that he has to stand all day or be in a chair all day. Pt states I understand that it not what I was looking for at that time. SW informed pt that this worker did make sure that the [facility] could accommodate his CPAP machine and they stated they could. Pt states that he is handling things by putting up with them one day at a time. Pt states that he did find transportation to his court date on the and he is excited to go to the appointment. Pt states that he took his Safety Plan with him. Pt states he had some emotions yesterday but [facility] helped him through them. Pt states that he is getting linked up with low incoming housing and his medications are on the way to him. Pt states that everything is fine and he thanked this worker for helping him. Original Note: Social Work Note SW received message from pt on Wednesday stating he is doing ok but reports that the staff at the homeless [facility] is stating no one ever told them about his court appointment on the and typically transportation would not be a problem but on that day they do not have transportation available. Pt states he thought that transportation was arranged for him to return to his court date and that the reason he is in the situation that he is is because females keep lying to him. SW reviewed chart. This worker did mention to Ladarius, [facility] staff, that pt did have an appointment on the and asked about transportation and that it was a possibility that they could assist pt to appointment. SW attempted to call pt to continue follow up discussion, there was no answer. SW left message stating pt can call this worker back if he chooses to. Joslyn Valdez GUEST ASSOCIATE, REGIONAL ACCOUNT MANAGER
== END 2022-02-19 16:53 | disposition home or self-care (01) ==
PROVIDERS: Emergency Provider Emergency Medicine; PCP Internal Medicine; Visit Provider Emergency Medicine
DX: R10.13 Epigastric pain (principal); J44.9 Chronic obstructive pulmonary disease, unspecified; E11.22 Type 2 diabetes mellitus with diabetic chronic kidney disease; E11.40 Type 2 diabetes mellitus with diabetic neuropathy, unspecified; E66.01 Morbid (severe) obesity due to excess calories; Z79.4 Long term (current) use of insulin; N18.30 Chronic kidney disease, stage 3 unspecified; R45.851 Suicidal ideations; I12.9 Hypertensive chronic kidney disease with stage 1 through stage 4 chronic kidney disease, or unspecified chronic kidney disease; I25.10 Atherosclerotic heart disease of native coronary artery without angina pectoris; G47.33 Obstructive sleep apnea (adult) (pediatric); E78.5 Hyperlipidemia, unspecified; I25.2 Old myocardial infarction; F17.290 Nicotine dependence, other tobacco product, uncomplicated; Z95.5 Presence of coronary angioplasty implant and graft; Z59.00 Homelessness unspecified; Z79.02 Long term (current) use of antithrombotics/antiplatelets; Z79.82 Long term (current) use of aspirin; Z79.899 Other long term (current) drug therapy
CPT/HCPCS: 36415; 71045; 80053; 80307; 82077; 82962; 83690; 84484; 85025; 87811; 93005; 96365; 96375; 99285; A4216; J2405; J3490

== ENCOUNTER → 2022-04-24 | Outpatient (CLI) | payer MEDICARE, SELFPAY ==
[2022-04-24 16:42] LABS: Absolute Lymphocyte Count 2.91 X10^3/uL (0.83-4.51); Absolute Neutrophil Count 2.8 X10^3/uL (2.0-7.7); Basophil# 0.03 X10^3/uL; Basophil% 0.5 % (0-1); Eosinophil# 0.18 X10^3/uL; Eosinophils% 2.8 % (0-5); Hematocrit 30.1 % (40-54); Hemoglobin 9.2 g/dL (13.0-16.5); Lymphocyte # 2.91 X10^3/ul (0.83-4.51); Lymphocyte % 45.1 % (19-41); Mean Corp Hgb Conc 30.6 g/dL (32-36); Mean Corpuscular Hgb 27.2 pg (27.0-32.0); Mean Corpuscular Volume 89.1 fL (80-94); Mean Platelet Vol. 11.2 fl (6.2-12.0); Monocyte% 7.8 % (0-10); NRBC Flagged by Analyzer 0 % (0-5); Neutrophil # 2.82 X10^3/uL (2.7-7.7); Neutrophil % 43.6 % (47-70); Platelet Count 223 K/mm3 (150-450); RBC Distribution Width SD 55.4 fl (35.1-43.9); Red Blood Count 3.38 M/mm3 (4.6-6.2); White Blood Count 6.5 K/mm3 (4.4-11.0)
[2022-04-24 17:06] LABS: ALB/GLOB Ratio 0.9 RATIO (0.9-2.4); AST(SGOT) 26 U/L (15-37); Alanine Aminotransfer ALT/SGPT 23 U/L (16-61); Albumin, Serum 3.2 g/dL (3.2-5.0); Alkaline Phosphatase 25 U/L (45-117); Anion Gap 1 (5-15); BUN 49 mg/dL (7-18); BUN/Creat Ratio 19.6 RATIO (10-20); Chloride 111 mmol/L (98-107); Cholesterol 89 mg/dL (200); EST Glomerular Filtration Rate 29 mL/min (>60); Est Glom Filt Rate - Afr Amer 35 mL/min (>60); Globulin 3.4 g/dL (2.2-4.2); Glucose 120 mg/dL (74-106); High Density Lipoprotein 27 mg/dL; Potassium 5.6 mmol/L (3.5-5.1); Protein, Total 6.6 g/dL (6.4-8.2); Sodium Level 140 mmol/L (136-145); Triglycerides 82 mg/dL; Very Low Density Lipoprotein 16 mg/dL (5-40)
== END | disposition home or self-care (01) ==
LOC: BIMLAB 15:02
PROVIDERS: PCP Internal Medicine; Referring Provider Physician Assistant; Visit Provider Physician Assistant
DX: I12.9 Hypertensive chronic kidney disease with stage 1 through stage 4 chronic kidney disease, or unspecified chronic kidney disease (principal); E11.610 Type 2 diabetes mellitus with diabetic neuropathic arthropathy; E11.22 Type 2 diabetes mellitus with diabetic chronic kidney disease; E66.01 Morbid (severe) obesity due to excess calories; N18.2 Chronic kidney disease, stage 2 (mild); E78.5 Hyperlipidemia, unspecified; F17.200 Nicotine dependence, unspecified, uncomplicated
CPT/HCPCS: 36415; 80053; 80061; 82043; 82570; 85025